=== PATIENT | female | born 1925 | race Caucasian/White ===

== ENCOUNTER → 2016-06-26 | Outpatient (CLI) | payer OTHER, MEDICAID ==
[2015-08-01 15:19] VITALS: BP 99/54
--- NOTE | 2016-06-26 14:19 | MG ---
Examination: Unilateral right diagnostic mammogram. Clinical history: Personal history of left breast carcinoma with left mastectomy. Technique: Multiple digital images of the right breast were obtained. Computer aided detection abe sis was performed in the used in the interpretation. Comparison: 05/12/2015. Findings: The right breast is composed of scattered fibroglandular densities. Benign-appearing calcifications are noted in the right breast. No suspicious mass, area of architectural distortion or suspicious cluster of microcalcifications is noted. Impression: 1. No mammographic evidence of malignancy. BI-RADS category 2-benign findings. Recommend routine annual screening mammogram. Diagnostic CAD was utilized and reviewed. * 0 (ZERO) - ASSESSMENT INCOMPLETE; ADDITIONAL IMAGING IS NEEDED. * 0C - ASSESSMENT INCOMPLETE, NEEDS ADDITIONAL IMAGING EVALUATION AND/OR PRIOR MAMMOGRAMS FOR COMPAR YELENA. * 1/1 (ONE) - NEGATIVE. * 2/II (TWO) - BENIGN FINDINGS. * 3/III (THREE) - PROBABLY BENIGN FINDING; SHORT INTERVAL FOLLOW-UP SUGGESTED. * 4/IV (FOUR) - SUSPICIOUS ABNORMALITY; BIOPSY SHOULD BE CONSIDERED. * 5/V - HIGHLY SUSPICIOUS OF MALIGNANCY; BIOPSY SHOULD BE PERFORMED. * 6/IV - KNOWN BIOPSY PROVEN MALIGNANCY-APPROPRIATE ACTION SHOULD BE TAKEN. A NEGATIVE X-RAY REPORT SHOULD NOT DELAY BIOPSY IF A DOMINANT OR CLINICALLY SUSPICIOUS MASS IS PRESENT; 4 TO 8 PERCENT OF CANCERS ARE NOT IDENTIFIED BY X-RAY. A NEGATIVE REPORT MAY REINFORCE THE CLINICAL IMPRESSION. ADENOSIS AND DENSE BREASTS MAY OBSCURE AN UNDERLYING NEOPLASM. Reported By:
--- NOTE | 2016-06-27 08:07 | NM ---
HISTORY: Open wound right heel Study: nuclear medicine 3 phase bone scan, feet Comparison: Plain films May 05, 2013 Technique: Patient received intravenous injection of 25.6 millicuries technetium 99 MDP. Flow, blood pool, and delayed imaging of the were obtained. Total body delayed images were also obtained. Findings: Abnormally increased blood flow is present in the area of the right foot and ankle. There is abnorma l increased blood pool concentration in the same area. However there is no abnormal tracer concentra tion in the right calcaneus on the delayed images. This suggest soft tissue inflammation but does no t suggest osteomyelitis. Focal increase tracer concentration is present in the right mid foot and bilateral knee joints likel y degenerative in origin. Scattered areas of increase tracer concentration are present in the mid th oracic and lumbar spine also likely degenerative in origin IMPRESSION: No definite evidence for osteomyelitis in the right calcaneus. Findings suggests soft tissue inflamm ation Foci of abnormal tracer concentration in the mid thoracic spine, lumbar spine, bilateral knees, and right mid football likely degenerative in origin Reported By:
== END ==
LOC: RAD 11:41
PROVIDERS: ATTEND Emergency Medicine Undersea and Hyperbaric Medicine
DX: S91.301A Unspecified open wound, right foot, initial encounter (principal); Z85.3 Personal history of malignant neoplasm of breast; Z90.12 Acquired absence of left breast and nipple
CPT/HCPCS: 77065; 78315; A4222

== ENCOUNTER → 2016-07-23 | Outpatient (CLI) | payer OTHER, MEDICAID ==
[2015-08-01 15:19] VITALS: BP 99/54
[2016-07-23 18:39] LABS: BASOPHILS # (AUTO) 0.1 X10^3/uL (0.0-0.1); BASOPHILS % (AUTO) 1.3 % (0.2-1.0); EOSINOPHILS # (AUTO) 0.5 x10^3/uL (0.0-0.2); EOSINOPHILS % (AUTO) 6.5 % (0.9-2.9); HEMATOCRIT 37.5 % (36.0-47.0); HEMOGLOBIN 12.8 g/dL (12.0-16.0); LYMPHOCYTES # (AUTO) 1.7 X10^3/uL (1.3-2.9); LYMPHOCYTES % (AUTO) 21.7 % (21.0-51.0); MEAN CORPUSCULAR HEMOGLOBIN 30.9 pg (27.0-34.0); MEAN CORPUSCULAR VOLUME 90.8 fL (80.0-100.0); MEAN PLATELET VOLUME 7.4 fL (7.4-11.0); MONOCYTES # (AUTO) 1.1 x10^3/uL (0.3-0.8); MONOCYTES % (AUTO) 14.1 % (0.0-13.0); NEUTROPHILS # (AUTO) 4.4 x10^3/uL (2.2-4.8); NEUTROPHILS % (AUTO) 56.4 % (42.0-75.0); PLATELET COUNT 230 X10^3/uL (150.0-450.0); RED BLOOD COUNT 4.13 X10^6/uL (3.5-5.4); RED CELL DISTRIBUTION WIDTH 14.6 % (11.6-16.5); WHITE BLOOD COUNT 7.9 X10^3/uL (3.6-10.0)
[2016-07-23 18:50] LABS: ALANINE AMINOTRANSFERASE 25 Units/L (12-78); ALBUMIN 3.4 g/dL (3.4-5.0); ALKALINE PHOSPHATASE 55 Units/L (46-116); ASPARTATE AMINO TRANSFERASE 20 Units/L (15-37); BLOOD UREA NITROGEN 15 mg/dL (7-18); CALCIUM 9.4 mg/dL (8.5-10.1); CARBON DIOXIDE 28.6 mmol/L (21-32); CHLORIDE 98 mmol/L (98-107); CREATININE 0.95 mg/dL (0.55-1.02); GLUCOSE 97 mg/dL (65-99); LACTATE DEHYDROGENASE 172 Units/L (81-234); SODIUM 132 mmol/L (136-145); TOTAL PROTEIN 7.5 g/dL (6.4-8.2); eGFR BLACK RACES > 60 (>60); eGFR NON BLACK RACES 59 (>60)
== END ==
LOC: LAB 18:04
PROVIDERS: ATTEND Internal Medicine
DX: C94.80 Other specified leukemias not having achieved remission (principal)
CPT/HCPCS: 36415; 80053; 83615; 85025

== ENCOUNTER 2016-08-30 22:17 | Inpatient (IN) | payer OTHER, MEDICAID ==
[2016-08-30] MEDS ORDERED: ZOFRAN INJ 4 MG VIAL IVP ONE (22:53)
[2016-08-30] MEDS ORDERED: MORPHINE SULFATE INJ 2 MG IVP ONE (22:53)
--- NOTE | 2016-08-30 22:53 | DR.GENAD ---
HPI - PCP Primary Care Physician: nadira - HPI Comment HPI Comment: PATIENT WAS HAVING PRECORDIAL CHEST PAIN RADIATING TO LT ARM AND NECK. TOOK 2 TRAMADOL WITHOUT RELIEF. CAME TO ED. SHE IS IN CAST AND IS WALKING WITH HER WALKER. SHE BELIEVE SHE MAY HAVE STRAIN HER SHOULDER ON THE LEFT. HAVE SEVERAL RISK FACTORS FOR [place]. - Complaint/Symptoms Chief Complaint Doctors Comments: CHEST PAIN. Chief Complaint:: pt c/o lt arm and shoulder pain since having too wear a boot on her rt foot pt states" it causes me too have too put more weight on my arms and shoulders" pt denies chest pain Self Treatment fo Chief Complaint: tramadol - Nurses notes reviewed Nurses Notes Review: Yes - Source History Provided: Patient - Mode of Arrival Mode of Arrival: EMS - Timing Onset of Chief Complaint: 08/30/16 Came on: Suddenly - Duration Duration: Constant Duration: Hours - Severity Severity: Moderate PMH - PMH Past Medical History: Yes Past Medical History: Arthritis, Depression, Dyslipidemia, Hypertension, Hypothyroidism Past Surgical History: Yes Surgical History: Hysterectomy, Mastectomy Past Surgical History Comment: breast ca lt breast removed - Family History History of Family Medical Conditions: Yes Family Medical History: Hypertension - Social History Does patient currently use any type of tobacco product: No Have you used tobacco products in the last 12 months: No Type of Tobacco Use: None Does any household member use tobacco: No Alcohol Use: None Do you use any recreational Drugs:: No Lives With: Family Lives Where: Home - infectious screening In the last 2 months have you had wt loss of >10#?: NO Have you had fever, night sweats or hemotysis?: No Have you traveled outside the country in the last 6 months?: No Isolation: Standard ROS - Review of Systems Constitutional: Weakness, Fatigue. negative: Chills, Fever Eyes: No Symptoms Reported. negative: Eye Pain, Discharge ENTM: negative: Ear Pain, Nose Discharge, Nose Congestion, Throat Pain Respiratoy: Non-Productive Cough, Short of Breath. negative: Productive Cough, Wheezing, Hemoptysis Cardiovascular: Chest Pain, Edema Gastrointestinal/Abdominal: No Symptoms Reported Genitourinary: No Symptoms Reported Neurological: Weakness, Problems Walking Musculoskeletal: Muscle Pain, Other (CAST IN RIGHT LEG AND FOOT.) Integumentary: negative: Rash, Juandice Hematologic/Lymphatic: Easy Bruising Endocrine: No Symptoms Reported All Other Systems: Reviewed and Negative PE - Vital Signs Vitals: Temperature 97.3 F Pulse Rate 65 Respiratory Rate 14 Blood Pressure [Right Thigh] 134/77 Blood Pressure [Right Arm] 124/59 Blood Pressure 136/84 O2 Sat by Pulse Oximetry 93 - General Limitations: No Limitations General Appearance: Alert - Head Head Exam: Normal Inspection - Eyes Eye exam: Normal Appearance - ENT ENT Exam: Normal External Ear Exam External Ear Exam: Normal External Inspection TM/Canal Exam: Bilateral Normal Mouth Exam: Normal Inspection Throat Exam: Normal Inspection - Neck Neck Exam: Trachea Midline - Chest Chest Inspection: Symmetric Chest Wall Rise - Respiratory Respiratory Exam: Chest Wall Tenderness (LEFT), Respiratory Distress Respiratory Exam: Bilateral Wheezing, Bilateral Rhonchi, Upper Rhonchi, Lower Wheezing, Lower Rhonchi - Cardiovascular Cardiovascular Exam: Regular Rate, Normal Rhythm, Normal Heart Sounds - Abdominal Exam Abdominal Exam: Normal Bowel Sounds, Soft. negative: Tenderness - Extremities Extremities Exam: Tenderness (LT SHOULDER), Joint Swelling (LT SHOULDER), Other (CAST IN RIGHT LEG.) - Back Back Exam: Paraspinal Tenderness - Neurologic Neurological Exam: Alert - Psychiatric Psychiatric Exam: Anxious - Skin Skin Exam: Erythema (LOWER EXTREMITIES.) MDM - Additional Information Additional Information Obtained From: Family - Differential Diagnosis Differential Diagnosis: CHEST PAIN, [place], CAD, CHEST WALL PAIN, PUD, GASTRITIS, UTI Course - Treatment Treatment: SEE ORDERS. PATIENT STILL IN PAIN . MORPHIN DECREASE PAIN SLIGHTLY. - Consultation Consultation Comments: DISCUSS PATIENT WITH DR. ESPITIA. HE WILL ADMIT PATIENT. - Education/Counseling Education/Counseling: Patient, Family, Education Educated On: Diagnosis ROR - Labs Reviewed Laboratory Results Reviewed?: Yes Result Diagrams: 09/01/16 08:36 09/01/16 05:21 - Diagnosis Discharge Problem: Chest pain - Discharge Plan Disposition: ADMITTED INPATIENT Condition: Stable - Follow ups/Referrals - Instructions
[2016-08-30 23:12] LABS: BASOPHILS # (AUTO) 0.1 X10^3/uL (0.0-0.1); BASOPHILS % (AUTO) 1.1 % (0.2-1.0); EOSINOPHILS # (AUTO) 0.5 x10^3/uL (0.0-0.2); EOSINOPHILS % (AUTO) 5.6 % (0.9-2.9); HEMATOCRIT 34.5 % (36.0-47.0); HEMOGLOBIN 12.1 g/dL (12.0-16.0); LYMPHOCYTES # (AUTO) 1.8 X10^3/uL (1.3-2.9); MEAN CORPUSCULAR HEMOGLOBIN 32.1 pg (27.0-34.0); MEAN CORPUSCULAR HGB CONC 35.1 g/dL (33.0-35.0); MEAN CORPUSCULAR VOLUME 91.3 fL (80.0-100.0); MEAN PLATELET VOLUME 6.9 fL (7.4-11.0); MONOCYTES # (AUTO) 1.3 x10^3/uL (0.3-0.8); MONOCYTES % (AUTO) 14.1 % (0.0-13.0); NEUTROPHILS # (AUTO) 5.7 x10^3/uL (2.2-4.8); NEUTROPHILS % (AUTO) 60.2 % (42.0-75.0); PLATELET COUNT 231 X10^3/uL (150.0-450.0); RED BLOOD COUNT 3.78 X10^6/uL (3.5-5.4); RED CELL DISTRIBUTION WIDTH 13.7 % (11.6-16.5); WHITE BLOOD COUNT 9.4 X10^3/uL (3.6-10.0)
[2016-08-30] MEDS ORDERED: ZOFRAN INJ 4 MG VIAL ONE (23:23)
[2016-08-30] MEDS ORDERED: MORPHINE SULFATE INJ 2 MG ONE (23:23)
[2016-08-30 23:30] LABS: BLOOD UREA NITROGEN 19 mg/dL (7-18); CALCIUM 8.9 mg/dL (8.5-10.1); CARBON DIOXIDE 28.3 mmol/L (21-32); CHLORIDE 102 mmol/L (98-107); COR NA(FOR HYPERGLY) 136 mmol/L (136-145); CREATININE 1.05 mg/dL (0.55-1.02); GLUCOSE 125 mg/dL (65-99); SODIUM 135 mmol/L (136-145); TROPONIN I < 0.02 ng/mL (0-1.5); eGFR BLACK RACES > 60 (>60); eGFR NON BLACK RACES 52 (>60)
--- NOTE | 2016-08-30 23:31 | RAD ---
AP Chest Indication: Chest pain Comparison: 05/17/2011 Findings: The right chest wall MediPort is unchanged in position with its tip terminating within the upper SVC . The trachea is midline. The cardiac silhouette is enlarged, unchanged. There is increased pulmonary vascular congestion without evidence of acute airspace disease or CHF. The lungs are clear without focal infiltrate or effusion. The bony thorax is unremarkable. Several surgical clips are noted wi thin the left chest wall/breast soft tissues. IMPRESSION: 1. Cardiomegaly with pulmonary vascular congestion without acute airspace disease or CHF. Overall no change from prior exam. Reported By:
[2016-08-30 23:34] LABS: ALANINE AMINOTRANSFERASE 12 Units/L (12-78); ALBUMIN 3.2 g/dL (3.4-5.0); ALKALINE PHOSPHATASE 47 Units/L (46-116); ASPARTATE AMINO TRANSFERASE 18 Units/L (15-37); CKMB % 0.4 % (<4); COR CA(FOR HYPOALB) 9.5 mg/dL (8.5-10.1); CREATINE KINASE 278 Units/L (26-192); CREATINE KINASE MB < 1.0 ng/mL (0-4.0); TOTAL PROTEIN 6.9 g/dL (6.4-8.2)
[2016-08-31] MEDS ORDERED: XYLOCAINE 1 % (PLAIN) ONE (00:59)
[2016-08-31] MEDS ORDERED: MORPHINE SULFATE INJ 2 MG IVP PRN (01:03)
[2016-08-31] MEDS ORDERED: ZOFRAN INJ 4 MG VIAL IVP PRN (01:04)
[2016-08-31 05:33] LABS: BASOPHILS # (AUTO) 0.1 X10^3/uL (0.0-0.1); BASOPHILS % (AUTO) 0.8 % (0.2-1.0); CALCIUM 8.7 mg/dL (8.5-10.1); CARBON DIOXIDE 25.6 mmol/L (21-32); COR CA(FOR HYPOALB) 9.5 mg/dL (8.5-10.1); CREATININE 1.13 mg/dL (0.55-1.02); EOSINOPHILS # (AUTO) 0.3 x10^3/uL (0.0-0.2); EOSINOPHILS % (AUTO) 2.2 % (0.9-2.9); HEMATOCRIT 30.4 % (36.0-47.0); HEMOGLOBIN 10.5 g/dL (12.0-16.0); LYMPHOCYTES # (AUTO) 1.6 X10^3/uL (1.3-2.9); LYMPHOCYTES % (AUTO) 11.4 % (21.0-51.0); MEAN CORPUSCULAR HGB CONC 34.7 g/dL (33.0-35.0); MEAN CORPUSCULAR VOLUME 92.3 fL (80.0-100.0); MEAN PLATELET VOLUME 7.4 fL (7.4-11.0); MONOCYTES # (AUTO) 1.6 x10^3/uL (0.3-0.8); MONOCYTES % (AUTO) 11.3 % (0.0-13.0); NEUTROPHILS # (AUTO) 10.6 x10^3/uL (2.2-4.8); NEUTROPHILS % (AUTO) 74.3 % (42.0-75.0); PLATELET COUNT 275 X10^3/uL (150.0-450.0); RED BLOOD COUNT 3.29 X10^6/uL (3.5-5.4); RED CELL DISTRIBUTION WIDTH 14.1 % (11.6-16.5); TOTAL PROTEIN 6.4 g/dL (6.4-8.2); WHITE BLOOD COUNT 14.3 X10^3/uL (3.6-10.0)
[2016-08-31 06:01] LABS: CKMB % 0.4 % (<4); CREATINE KINASE 251 Units/L (26-192); CREATINE KINASE MB < 1.0 ng/mL (0-4.0); TROPONIN I < 0.02 ng/mL (0-1.5)
[2016-08-31 08:25] LABS: APPEARANCE,URINE HAZY (CLEAR); BILIRUBIN,URINE 2+ (NEGATIVE); BLOOD/HEMOGLOBIN,URINE 1+ (NEGATIVE); COLOR,URINE YELLOW (YELLOW); GLUCOSE, URINE NEGATIVE (NEGATIVE); KETONES,URINE NEGATIVE (NEGATIVE); LEUKOCYTE ESTERASE ,URINE 2+ (NEGATIVE); NITRITES,URINE NEGATIVE (NEGATIVE); PROTEIN,URINE 1+ (NEGATIVE); RBC,URINE 0-2 /HPF (NEGATIVE); UROBILINOGEN,URINE NORMAL (NORMAL)
[2016-08-31] MEDS: MORPHINE SULFATE INJ 10 MG IVP PRN (08:25)
[2016-08-31] MEDS: NS IV SCH ×2 (08:25→20:41)
[2016-08-31] MEDS: AQUA MEPHYTON ADULT IV SCH ×2 (08:25→20:41)
[2016-08-31 08:26] LABS: BACTERIA,URINE TRACE /HPF (NEGATIVE); SQUAMOUS EPITHELIAL CELL,UR RARE /HPF (NEGATIVE)
--- NOTE | 2016-08-31 08:37 | CT ---
HISTORY: Left chest wall swelling/pain. Patient has a history of breast cancer Study: Noncontrast CT scan of the chest Comparison: Chest x-ray done August 30, 2016 Technique: non contrasted CT images of the chest are reviewed in axial, coronal and sagittal planes. Dose reduction techniques utilized automatic exposure control. Findings: There is subcutaneous edema present involving the left upper chest wall and extending into the left axillary region. Multiple heterogeneous appearing mass is are present deep to the pectoral muscle an d displacing the pectoral muscle anteriorly are present. The largest of these measures about 5.4 x 1 0.6 x 11.8 centimeters. Other mass is are present measuring 4 to 6 centimeters in diameter. Findings have the appearance of adenopathy. Some central necrosis is present within the largest of the soft tissue mass . There are surgical clips present involving the left axilla region in the left breast a susannah. A simple fluid collection is not identified. Osseous structures are intact. No evidence of medi astinal or hilar adenopathy is seen. There is no evidence of thoracic aortic aneurysm. There are 3 s mall noncalcified nodules present involving the left lung. These range in size from 5 to 6 millimete rs. These are present in the left lower lobe. A 3 millimeter calcified nodule is present in the supe rior segment of the left lower lobe. The right lung is clear. Osseous structures are intact. The meet er and adrenal glands unremarkable. There is an IVC filter present. IMPRESSION: Bulky masses present in the left subpectoral region extending into the left axilla. Findings likely represent metastatic lymphadenopathy. Due to the superficial location of the masses, these could be biopsied under ultrasound guidance. Considerable subcutaneous edema in the left anterior upper chest region extending into the left axil la. 3 non calcified pulmonary nodules in the left lower lobe. These must be viewed with suspicion for me tastatic nodules, taken in the light of the additional findings. Reported By:
[2016-08-31] MEDS ORDERED: LOSARTAN POTASSIUM 100 MG PO SCH (09:45)
[2016-08-31] MEDS ORDERED: PATIENT'S HOME MEDICATION (Pregabalin [Lyrica] 50 MG) PO SCH (09:45)
[2016-08-31] MEDS ORDERED: PATIENT'S HOME MEDICATION (Multivit-Min/Fa/Lycopen/Lutein [Centrum Silver Tablet] 1 TAB) PO SCH (09:45)
[2016-08-31] MEDS ORDERED: LEVOTHYROXINE SODIUM 150 MCG PO SCH (09:45)
[2016-08-31] MEDS ORDERED: LOPRESSOR TAB 50 MG PO SCH (10:00)
[2016-08-31] MEDS: VITAMIN C PO SCH (10:17)
[2016-08-31] MEDS ORDERED: BUTT CREAM (COMPOUND) ONE (10:57)
[2016-08-31] MEDS ORDERED: STERILE WATER IRRIGATION IR ONE (10:59)
[2016-08-31 11:32] LABS: CKMB % 0.4 % (<4); CREATINE KINASE 238 Units/L (26-192); TROPONIN I < 0.02 ng/mL (0-1.5)
[2016-08-31] MEDS: LYRICA CAP 50 MG PO SCH ×2 (14:33→21:39)
[2016-08-31] MEDS ORDERED: NS 1000 ML 1,000 ML IV ONE (16:11)
[2016-08-31] MEDS ORDERED: CITALOPRAM HYDROBROMIDE 10 MG PO SCH (21:00)
[2016-08-31] MEDS: CELEXA PO SCH (21:39)
[2016-09-01] MEDS: MORPHINE SULFATE INJ 10 MG IVP PRN (02:34)
[2016-09-01] MEDS: LYRICA CAP 50 MG PO SCH ×3 (05:58→21:22)
[2016-09-01] MEDS: SYNTHROID 150 mcg TAB PO SCH (05:59)
[2016-09-01 06:09] LABS: BASOPHILS # (AUTO) 0.1 X10^3/uL (0.0-0.1); BASOPHILS % (AUTO) 0.2 % (0.2-1.0); MEAN PLATELET VOLUME 7.7 fL (7.4-11.0); PLATELET COUNT 263 X10^3/uL (150.0-450.0)
[2016-09-01 06:31] LABS: HEMATOCRIT 21.3 % (36.0-47.0); HEMOGLOBIN 7.4 g/dL (12.0-16.0); LYMPHOCYTES # (AUTO) 1.8 X10^3/uL (1.3-2.9); LYMPHOCYTES % (AUTO) 7.3 % (21.0-51.0); MEAN CORPUSCULAR HGB CONC 34.9 g/dL (33.0-35.0); MEAN CORPUSCULAR VOLUME 91.5 fL (80.0-100.0); MONOCYTES # (AUTO) 3.4 x10^3/uL (0.3-0.8); MONOCYTES % (AUTO) 13.8 % (0.0-13.0); NEUTROPHILS # (AUTO) 19.7 x10^3/uL (2.2-4.8); NEUTROPHILS % (AUTO) 78.7 % (42.0-75.0); RED BLOOD COUNT 2.33 X10^6/uL (3.5-5.4); RED CELL DISTRIBUTION WIDTH 13.9 % (11.6-16.5)
[2016-09-01 06:39] LABS: ALBUMIN 2.6 g/dL (3.4-5.0); CALCIUM 8.4 mg/dL (8.5-10.1); CARBON DIOXIDE 22.8 mmol/L (21-32); COR CA(FOR HYPOALB) 9.5 mg/dL (8.5-10.1)
[2016-09-01 07:17] LABS: BAND NEUTROPHILS % 5 % (0-10)
[2016-09-01 07:20] LABS: PLATELET MORPHOLOGY COMMENT NORMAL (NORMAL)
[2016-09-01] MEDS: VITAMIN C PO SCH (08:10)
[2016-09-01] MEDS ORDERED: NS 500 ML IV 500 ML IV ONE (08:19)
[2016-09-01] MEDS ORDERED: BETAMETHASONE EXT PRN (08:21)
[2016-09-01] MEDS ORDERED: CLOTRIMAZOLE EXT PRN (08:21)
[2016-09-01] MEDS ORDERED: GENTAMICIN TOPICAL CRM EXT PRN (08:21)
[2016-09-01] MEDS ORDERED: TRAMADOL HCL 50 MG PO PRN (08:21)
[2016-09-01] MEDS ORDERED: POTASSIUM CHLORIDE 10 MEQ PO SCH (09:00)
[2016-09-01] MEDS ORDERED: PATIENT'S HOME MEDICATION (Levocetirizine Dihydrochloride [Xyzal] 5 MG) PO SCH (09:00)
[2016-09-01] MEDS ORDERED: ZINC 100 MG PO SCH (09:00)
[2016-09-01] MEDS ORDERED: COZAAR PO SCH (09:00)
[2016-09-01] MEDS ORDERED: HONEY TD SCH (09:00)
[2016-09-01 09:24] LABS: HEMATOCRIT 19.9 % (36.0-47.0); HEMOGLOBIN 6.7 g/dL (12.0-16.0)
[2016-09-01] MEDS: SINEMET (PLAIN) 25/100 MG PO SCH ×3 (09:38→21:22)
[2016-09-01] MEDS: WELCHOL PO SCH ×2 (09:38→21:22)
[2016-09-01] MEDS: TYLENOL 325 MG TAB PO PRN ×3 (09:38→22:50)
[2016-09-01] MEDS ORDERED: LOTRISONE CREAM 15 G TOP PRN (09:49)
[2016-09-01] MEDS: MICRO K EXTEN CAP 10 MEQ PO SCH ×2 (10:20→21:22)
[2016-09-01] MEDS ORDERED: ULTRAM PO PRN (10:50)
[2016-09-01] MEDS: BENADRYL INJ 50 MG VIAL IVP PRN ×2 (12:00→22:51)
[2016-09-01 16:31] LABS: HEMOGLOBIN 8.1 g/dL (12.0-16.0)
[2016-09-01] MEDS: CELEXA PO SCH (21:21)
[2016-09-01] MEDS: ZyrTEC TAB 10 MG PO SCH (21:22)
[2016-09-01] MEDS ORDERED: NS 500 ML IV 0 ML IV ONE (22:45)
[2016-09-02 06:19] LABS: BASOPHILS % (AUTO) 0.2 % (0.2-1.0); EOSINOPHILS % (AUTO) 0.1 % (0.9-2.9); HEMATOCRIT 24.8 % (36.0-47.0); HEMOGLOBIN 8.6 g/dL (12.0-16.0); LYMPHOCYTES # (AUTO) 1.4 X10^3/uL (1.3-2.9); LYMPHOCYTES % (AUTO) 8.9 % (21.0-51.0); MEAN CORPUSCULAR HEMOGLOBIN 30.8 pg (27.0-34.0); MEAN CORPUSCULAR HGB CONC 34.7 g/dL (33.0-35.0); MEAN CORPUSCULAR VOLUME 88.8 fL (80.0-100.0); MONOCYTES # (AUTO) 2.1 x10^3/uL (0.3-0.8); MONOCYTES % (AUTO) 13.1 % (0.0-13.0); NEUTROPHILS # (AUTO) 12.2 x10^3/uL (2.2-4.8); NEUTROPHILS % (AUTO) 77.7 % (42.0-75.0); PLATELET COUNT 176 X10^3/uL (150.0-450.0); RED BLOOD COUNT 2.79 X10^6/uL (3.5-5.4); RED CELL DISTRIBUTION WIDTH 14.7 % (11.6-16.5); WHITE BLOOD COUNT 15.7 X10^3/uL (3.6-10.0)
[2016-09-02 06:22] LABS: ALBUMIN 2.2 g/dL (3.4-5.0); CALCIUM 8.2 mg/dL (8.5-10.1); CARBON DIOXIDE 24.4 mmol/L (21-32); COR CA(FOR HYPOALB) 9.6 mg/dL (8.5-10.1); CREATININE 1.15 mg/dL (0.55-1.02); TOTAL PROTEIN 5.7 g/dL (6.4-8.2)
[2016-09-02] MEDS: SINEMET (PLAIN) 25/100 MG PO SCH ×3 (06:29→21:35)
[2016-09-02] MEDS: COLACE CAP 100 MG PO PRN (06:29)
[2016-09-02] MEDS: SYNTHROID 150 mcg TAB PO SCH (06:30)
[2016-09-02] MEDS: LYRICA CAP 50 MG PO SCH ×3 (06:30→21:36)
[2016-09-02] MEDS: MILK OF MAGNESIA PO PRN (06:30)
[2016-09-02] MEDS: VITAMIN C PO SCH (08:39)
[2016-09-02] MEDS: MICRO K EXTEN CAP 10 MEQ PO SCH ×2 (08:39→21:35)
[2016-09-02] MEDS: WELCHOL PO SCH ×2 (08:40→21:35)
[2016-09-02] MEDS: PATIENT'S HOME MEDICATION PO SCH ×2 (08:48→08:49)
[2016-09-02 09:06] LABS: HEMATOCRIT 26.2 % (36.0-47.0); HEMOGLOBIN 9.1 g/dL (12.0-16.0)
[2016-09-02 09:48] VITALS: BMI 41.8
[2016-09-02] MEDS ORDERED: NS 250 ML IV 250 ML IV ONE (10:30)
[2016-09-02] MEDS: LEVAQUIN PREMIX IV 750 MG 750 MG/150 ML BAG IV SCH (10:35)
[2016-09-02] MEDS: VANCOMYCIN 1 GM PREMIX (ADDVANTAGE) 250 ML IV SCH ×2 (12:19→21:34)
[2016-09-02] MEDS: TYLENOL 325 MG TAB PO PRN (13:48)
--- NOTE | 2016-09-02 15:12 | PCM.PROG ---
Progress Note - Progress Note for Day of Date: 09/01/16 - Subjective Subjective: Patient Is a 89 yo female admitted with chest pain. Patient is asleep this am and resting well. She has a large hematoma to left side of chest with bruising extending to her right breast. Vital Signs this am are 100.1, 105 , 18, 93, 155/55. Labs are within normal limits with the exception of WBC 25.0, RBC 2.33, Hgb 7.5, Hct 21.3, Neut% 78.7, Lymph% 7.3, [place]% 13.8, Eos% 0.0, Neut # 19.7, [place]# 3.4, Sodium 134, BUN 36, Creatinine 2.00, Est GFR 25, Glucose 179 , Calcium 8.4, Alkaline Phosphate 33, Total Protein 6.0, Albumin 2.6, Albumin/ globuin Ratio 0.8. Pateint has a chest ct performed yesterday that shows bulky masses present in the left subpectoral region extending into the left axilla region. Findings likely represent metastatic lymphadenopathy. Due to superficial location of the masses that could be biopsied under ultrasound guidance, considerable subcutaneous edema in the left anterior upper chest region extending into the left axilla, 3 non calcified pulmonary nodules in the left lower lobe. We are going to transfuse patient with 2 units of PRBC, H& H q8hr and transfuse if hemoglobin less than 8. We will continue her home medications with the exception of Coumadin and blood pressure medications. We will follow up with patient in the am and repeat labs. - Past Medical Family Social History Past Med/Fam/Surg Hx: No changes since H&P Allergies: Allergies clindamycin Allergy (Intermediate, Verified 08/31/16 13:09) RASH Sulfa (Sulfonamide Antibiotics) Allergy (Verified 08/31/16 13:11) - Review of Systems ROS: No change since H&P - Vital Signs and I&O's Vital Signs: 100.1, 105, 18, 93, 155/55 Intake and Output: Intake & Output 08/31/16 09/01/16 09/02/16 09/03/16 11:59 11:59 11:59 11:59 Intake Total 045 328 3764 Output Total 0 425 2150 Balance 220 225 -220 - Physical Exam Oriented: Normal Eyes: Normal Ear: Normal Nose: Normal Throat: Normal Respiratory: Normal Cardiovascular: Normal : Normal Auscultation: Bowel Sounds: Normal Palpation: Normal Tenderness: Normal Skin: Other (Hematoma to left chest, bruising to left chest extending to right chest) Speech Pattern: Clear, Appropriate - Laboratory and Diagnostics Result Diagrams: 09/02/16 08:28 09/02/16 04:12 Labs: 08/31/16 07:49 Urine,Clean Catch Urine Culture - Final Enterococcus Faecalis Laboratory WBC 15.7 X10^3/uL (3.6-10.0) H 09/02/16 04:12 RBC 2.79 X10^6/uL (3.5-5.4) L 09/02/16 04:12 Hgb 9.1 g/dL (12.0-16.0) L 09/02/16 08:28 Hct 26.2 % (36.0-47.0) L 09/02/16 08:28 MCV 88.8 fL (80.0-100.0) 09/02/16 04:12 MCH 30.8 pg (27.0-34.0) 09/02/16 04:12 MCHC 34.7 g/dL (33.0-35.0) 09/02/16 04:12 RDW 14.7 % (11.6-16.5) 09/02/16 04:12 Plt Count 176 X10^3/uL (150.0-450.0) 09/02/16 04:12 Plt Count Comment Adequate (ADEQUATE) 09/01/16 05:21 MPV 8.0 fL (7.4-11.0) 09/02/16 04:12 Neut % 77.7 % (42.0-75.0) H 09/02/16 04:12 Lymph % 8.9 % (21.0-51.0) L 09/02/16 04:12 [place] % 13.1 % (0.0-13.0) H 09/02/16 04:12 Eos % 0.1 % (0.9-2.9) L 09/02/16 04:12 Baso % 0.2 % (0.2-1.0) 09/02/16 04:12 Neut # 12.2 x10^3/uL (2.2-4.8) H 09/02/16 04:12 Lymph # 1.4 X10^3/uL (1.3-2.9) 09/02/16 04:12 [place] # 2.1 x10^3/uL (0.3-0.8) H 09/02/16 04:12 Eos # 0.0 x10^3/uL (0.0-0.2) 09/02/16 04:12 Baso # 0.0 X10^3/uL (0.0-0.1) 09/02/16 04:12 Absolute Nucleated RBC 0.1 /100WBC 09/02/16 04:12 Total Counted 100 09/01/16 05:21 Neutrophils % (Manual) 79 % (39-76) H 09/01/16 05:21 Band Neutrophils % 5 % (0-10) 09/01/16 05:21 Lymphocytes % (Manual) 6 % (13-43) L 09/01/16 05:21 Monocytes % (Manual) 8 % (4-9) 09/01/16 05:21 Eosinophils % (Manual) 2 % (0-6) 09/01/16 05:21 Plt Morphology Comment Normal (NORMAL) 09/01/16 05:21 RBC Morphology Normal (NORMAL) 09/01/16 05:21 INR Target Range - 09/02/16 04:12 INR 1.35 (0.8-1.3) H 09/02/16 04:12 Sodium 134 mmol/L (136-145) L 09/02/16 04:12 Corrected Sodium 136 mmol/L (136-145) 09/02/16 04:12 Potassium 4.4 mmol/L (3.5-5.1) 09/02/16 04:12 Chloride 102 mmol/L (98-107) 09/02/16 04:12 Carbon Dioxide 24.4 mmol/L (21-32) 09/02/16 04:12 BUN 26 mg/dL (7-18) H 09/02/16 04:12 Creatinine 1.15 mg/dL (0.55-1.02) H 09/02/16 04:12 Est GFR (MDRD) Af Amer 57 (>60) L 09/02/16 04:12 Est GFR (MDRD) Non-Af 47 (>60) L 09/02/16 04:12 Glucose 168 mg/dL (65-99) H 09/02/16 04:12 Calcium 8.2 mg/dL (8.5-10.1) L 09/02/16 04:12 Corrected Calcium 9.6 mg/dL (8.5-10.1) 09/02/16 04:12 Total Bilirubin 0.70 mg/dL (0.2-1.0) 09/02/16 04:12 AST 16 Units/L (15-37) 09/02/16 04:12 ALT 10 Units/L (12-78) L 09/02/16 04:12 Alkaline Phosphatase 37 Units/L (46-116) L 09/02/16 04:12 Creatine Kinase 238 Units/L (26-192) H 08/31/16 11:05 CK-MB (CK-2) 1.0 ng/mL (0-4.0) 08/31/16 11:05 CK/CKMB % Calc 0.4 % (<4) 08/31/16 11:05 Troponin I < 0.02 ng/mL (0-1.5) 08/31/16 11:05 Total Protein 5.7 g/dL (6.4-8.2) L 09/02/16 04:12 Albumin 2.2 g/dL (3.4-5.0) L 09/02/16 04:12 Globulin 3.5 g/dL (2.5-4.5) 09/02/16 04:12 Albumin/Globulin Ratio 0.6 Ratio (1.1-2.1) L 09/02/16 04:12 Triglycerides 97 mg/dL (0-150) 08/31/16 04:50 Cholesterol 113 mg/dL (0-200) 08/31/16 04:50 LDL Cholesterol, Calc 56 mg/dL (0-100) 08/31/16 04:50 HDL Cholesterol 38 mg/dL (40-60) L 08/31/16 04:50 Cholesterol/HDL Ratio 3.0 (0.0-5.0) 08/31/16 04:50 Specimen Type Catherized urine 08/31/16 07:49 Urine Color Yellow (YELLOW) 08/31/16 07:49 Urine Appearance Hazy (CLEAR) 08/31/16 07:49 Urine pH 5.0 (5.0 - 8.0) 08/31/16 07:49 Ur Specific [place] 1.015 (1.000-1.030) 08/31/16 07:49 Urine Protein 1+ (NEGATIVE) 08/31/16 07:49 Urine Glucose (UA) Negative (NEGATIVE) 08/31/16 07:49 Urine Ketones Negative (NEGATIVE) 08/31/16 07:49 Urine Occult Blood 1+ (NEGATIVE) 08/31/16 07:49 Urine Nitrite Negative (NEGATIVE) 08/31/16 07:49 Urine Bilirubin 2+ (NEGATIVE) 08/31/16 07:49 Urine Urobilinogen Normal (NORMAL) 08/31/16 07:49 Ur Leukocyte Esterase 2+ (NEGATIVE) 08/31/16 07:49 Urine RBC 0-2 /HPF (NEGATIVE) 08/31/16 07:49 Urine WBC 11-20 /HPF (NEGATIVE) 08/31/16 07:49 Ur Squamous Epith Cells Rare /HPF (NEGATIVE) 08/31/16 07:49 Urine Bacteria Trace /HPF (NEGATIVE) 08/31/16 07:49 Ur Culture Indicated? Yes/culture set up 08/31/16 07:49 Blood Type AB POSITIVE 08/31/16 08:12 Antibody Screen Negative 08/31/16 08:12 Crossmatch See Detail 08/31/16 08:12
[2016-09-02 16:22] LABS: HEMATOCRIT 23.1 % (36.0-47.0); HEMOGLOBIN 8.2 g/dL (12.0-16.0)
[2016-09-02] MEDS: ZyrTEC TAB 10 MG PO SCH (21:35)
[2016-09-02] MEDS: CELEXA PO SCH (21:36)
[2016-09-03 00:55] LABS: HEMATOCRIT 22.7 % (36.0-47.0); HEMOGLOBIN 7.9 g/dL (12.0-16.0)
[2016-09-03] MEDS ORDERED: NS 500 ML IV 500 ML IV ONE (01:27)
[2016-09-03] MEDS: BENADRYL INJ 50 MG VIAL IVP PRN (02:15)
[2016-09-03] MEDS: TYLENOL 325 MG TAB PO PRN (02:16)
[2016-09-03] MEDS ORDERED: NS 250 ML IV 250 ML IV ONE (04:46)
[2016-09-03] MEDS: LYRICA CAP 50 MG PO SCH ×3 (05:47→21:58)
[2016-09-03] MEDS: SINEMET (PLAIN) 25/100 MG PO SCH ×3 (05:47→21:57)
[2016-09-03] MEDS: SYNTHROID 150 mcg TAB PO SCH (06:20)
[2016-09-03] MEDS: LEVAQUIN PREMIX IV 750 MG 750 MG/150 ML BAG IV SCH (09:44)
[2016-09-03] MEDS: WELCHOL PO SCH ×2 (09:44→21:57)
[2016-09-03] MEDS: COLACE CAP 100 MG PO PRN (09:44)
[2016-09-03] MEDS: VITAMIN C PO SCH (09:44)
[2016-09-03] MEDS: MICRO K EXTEN CAP 10 MEQ PO SCH ×2 (09:45→21:57)
[2016-09-03] MEDS: PATIENT'S HOME MEDICATION PO SCH ×2 (09:57→10:07)
[2016-09-03 10:40] LABS: ALANINE AMINOTRANSFERASE 13 Units/L (12-78); ALBUMIN 2.3 g/dL (3.4-5.0); ALKALINE PHOSPHATASE 41 Units/L (46-116); ASPARTATE AMINO TRANSFERASE 25 Units/L (15-37); BLOOD UREA NITROGEN 24 mg/dL (7-18); CALCIUM 8.4 mg/dL (8.5-10.1); CARBON DIOXIDE 24.7 mmol/L (21-32); CHLORIDE 104 mmol/L (98-107); COR CA(FOR HYPOALB) 9.8 mg/dL (8.5-10.1); COR NA(FOR HYPERGLY) 135 mmol/L (136-145); GLUCOSE 145 mg/dL (65-99); SODIUM 134 mmol/L (136-145); eGFR BLACK RACES > 60 (>60); eGFR NON BLACK RACES 55 (>60)
[2016-09-03 10:42] LABS: BASOPHILS % (AUTO) 0.3 % (0.2-1.0); EOSINOPHILS # (AUTO) 0.3 x10^3/uL (0.0-0.2); EOSINOPHILS % (AUTO) 2.6 % (0.9-2.9); HEMATOCRIT 30.2 % (36.0-47.0); HEMOGLOBIN 10.6 g/dL (12.0-16.0); LYMPHOCYTES # (AUTO) 1.3 X10^3/uL (1.3-2.9); LYMPHOCYTES % (AUTO) 12.7 % (21.0-51.0); MEAN CORPUSCULAR HEMOGLOBIN 30.9 pg (27.0-34.0); MEAN CORPUSCULAR HGB CONC 35.1 g/dL (33.0-35.0); MEAN PLATELET VOLUME 7.8 fL (7.4-11.0); MONOCYTES # (AUTO) 1.1 x10^3/uL (0.3-0.8); MONOCYTES % (AUTO) 11.1 % (0.0-13.0); NEUTROPHILS # (AUTO) 7.5 x10^3/uL (2.2-4.8); NEUTROPHILS % (AUTO) 73.3 % (42.0-75.0); PLATELET COUNT 184 X10^3/uL (150.0-450.0); RED BLOOD COUNT 3.43 X10^6/uL (3.5-5.4); RED CELL DISTRIBUTION WIDTH 14.9 % (11.6-16.5); WHITE BLOOD COUNT 10.2 X10^3/uL (3.6-10.0)
[2016-09-03] MEDS: VANCOMYCIN 1 GM PREMIX (ADDVANTAGE) 250 ML IV SCH ×2 (11:11→21:58)
[2016-09-03] MEDS: DAKINS SOLUTION FULL STRENGTH TOP SCH (11:14)
[2016-09-03] MEDS: NYSTATIN POWDER TOP SCH ×2 (11:14→21:58)
--- NOTE | 2016-09-03 12:18 | PCM.PROG ---
Progress Note - Progress Note for Day of Date: 09/02/16 - Subjective Subjective: Patient Is a 89 yo female admitted with chest pain. Patient is awake this am and she states she is feeling better. She has a large hematoma to left side of chest with bruising extending to her right breast. Vital Signs this am are 98.2, 113, 20, 95%, 156/67. Labs are within normal limits with the exception of WBC 15.7, RBC 2.79, Hgb 8.6, Hct 24.8, Neut% 77.7, Lymph% 8.9, [place] % 13.1, Eos% 0.1, Neut# 12.2, [place]# 2.1, INR 1.35, Sodium 134, BUN 26, Creatinine 1.15, Est GFR 47, Glucose 168, Calcium 8.2, ALT 10, Alkaline Phosphate 37, Total Protein 5.7, Albumin 2.2, Albumin/globuin Ratio 0.6. Patient received 2units of PRBC yesterday and her hemoglobin is up to 8.6 this am. Patient urine culture that showed preliminary gram positive cocci we are going to start her on vancomycin IV and Levaquin. We will follow up in the am with repeat labs. - Past Medical Family Social History Past Med/Fam/Surg Hx: No changes since H&P Allergies: Allergies clindamycin Allergy (Intermediate, Verified 08/31/16 13:09) RASH Sulfa (Sulfonamide Antibiotics) Allergy (Verified 08/31/16 13:11) - Review of Systems ROS: No change since H&P - Vital Signs and I&O's Vital Signs: 98.2, 113, 20, 95%, 156/67 Intake and Output: Intake & Output 09/01/16 09/02/16 09/03/16 09/04/16 11:59 11:59 11:59 11:59 Intake Total 650 1930 1700 Output Total 425 2150 1625 Balance 225 -220 75 - Physical Exam Oriented: Normal Eyes: Normal Ear: Normal Nose: Normal Throat: Normal Respiratory: Normal Cardiovascular: Normal : Normal Auscultation: Bowel Sounds: Normal Palpation: Normal Tenderness: Normal Skin: Other (Hematoma to left chest, bruising to left chest extending to right chest, moisture under breast) Speech Pattern: Clear, Appropriate - Laboratory and Diagnostics Result Diagrams: 09/03/16 10:05 09/03/16 10:05 Labs: Labs are within normal limits with the exception of WBC 15.7, RBC 2.79, Hgb 8.6 , Hct 24.8, Neut% 77.7, Lymph% 8.9, [place]% 13.1, Eos% 0.1, Neut# 12.2, [place]# 2.1 , INR 1.35, Sodium 134, BUN 26, Creatinine 1.15, Est GFR 47, Glucose 168, Calcium 8.2, ALT 10, Alkaline Phosphate 37, Total Protein 5.7, Albumin 2.2, Albumin/globuin Ratio 0.6 - Plan (1) Anemia Status: Acute Qualifiers: Anemia type: A Iron deficiency anemia type: I Vitamin B12 deficiency anemia type: V Folate deficiency anemia type: F Bone marrow failure anemia type: B Hemolytic anemia type: H Other causes of anemia: O Chronic kidney disease stage: C Plan: H&H q8hr transfuse if less than 8.0 (2) UTI (urinary tract infection) Status: Acute Qualifiers: Urinary tract infection type: U Hematuria presence: H Indwelling urinary catheter type: I Encounter type: E Plan: vancomycin IV and Levaquin
--- NOTE | 2016-09-03 12:31 | PCM.PROG ---
Progress Note - Progress Note for Day of Date: 09/03/16 - Subjective Subjective: Patient Is a 89 yo female admitted with chest pain. Patient is awake this am and she states she is feeling better. She has a large hematoma to left side of chest with bruising extending to her right breast. Patient hemoglobin dropped to 7.9 at 0035 and was transfused 2 units of PRBC. Patient is to have cast removed that was put in place by Dr. Usama gardiner at [facility] wound clinic related to wounds on lower extremity and order the dankin solution as per human resources benefits specialist. Vital signs this am are 97.7, 83, 18, 96%, 126/58.l Labs this am are within normal limits with the exception of WBC 10.2, RBC 3.43, Hgb 10.6, Hct 30.2, MCHC 35.1, Lymph% 12.7, Neut# 7.5, Kings# 1.1, Eos# 0.3, INR 1.16, Sodium 145, BUN 24, Est GFR 55, Glucose 145, Calcium 8.4, Total bilirubin , Alkaline phosphatase 41, Total protein 6.0, albumin 2.3, Albumin/globulin Ratio 0.6. Daughter voiced concern of weakness and we will have physical therapy to evaluate. Patient is developing moist areas under breast we are going to start nyastatin powder. Urine culture grew out enterococcus faecalis which is sensitive to vancomycin we are going to discontinue the levaquin as it is resistant. We will follow up in the am with repeat labs. - Past Medical Family Social History Past Med/Fam/Surg Hx: No changes since H&P Allergies: Allergies clindamycin Allergy (Intermediate, Verified 08/31/16 13:09) RASH Sulfa (Sulfonamide Antibiotics) Allergy (Verified 08/31/16 13:11) - Review of Systems ROS: No change since H&P - Vital Signs and I&O's Vital Signs: Temperature 98.0 F Pulse Rate [Right Brachial] 82 Respiratory Rate 20 Blood Pressure [Left Calf] 131/54 Blood Pressure [Right Thigh] 109/58 Blood Pressure [Right Arm] 129/63 O2 Sat by Pulse Oximetry 97 Intake and Output: Intake & Output 09/01/16 09/02/16 09/03/16 09/04/16 11:59 11:59 11:59 11:59 Intake Total 650 1930 1700 Output Total 425 2150 1625 Balance 225 -220 75 - Physical Exam Oriented: Normal Eyes: Normal Ear: Normal Nose: Normal Throat: Normal Respiratory: Normal Cardiovascular: Normal : Normal Auscultation: Bowel Sounds: Normal Tenderness: Normal Skin: Other (Hematoma to left chest, bruising to left chest extending to right chest, moisture under breast) Musculoskeletal: Instability Psychiatric: Normal Mood Description: Calm Affect: Normal Speech Pattern: Clear, Appropriate - Laboratory and Diagnostics Result Diagrams: 09/03/16 10:05 09/03/16 10:05 Labs: 08/31/16 07:49 Urine,Clean Catch Urine Culture - Final Enterococcus Faecalis Laboratory WBC 10.2 X10^3/uL (3.6-10.0) H 09/03/16 10:05 RBC 3.43 X10^6/uL (3.5-5.4) L 09/03/16 10:05 Hgb 10.6 g/dL (12.0-16.0) L 09/03/16 10:05 Hct 30.2 % (36.0-47.0) L 09/03/16 10:05 MCV 88.0 fL (80.0-100.0) 09/03/16 10:05 MCH 30.9 pg (27.0-34.0) 09/03/16 10:05 MCHC 35.1 g/dL (33.0-35.0) H 09/03/16 10:05 RDW 14.9 % (11.6-16.5) 09/03/16 10:05 Plt Count 184 X10^3/uL (150.0-450.0) 09/03/16 10:05 Plt Count Comment Adequate (ADEQUATE) 09/01/16 05:21 MPV 7.8 fL (7.4-11.0) 09/03/16 10:05 Neut % 73.3 % (42.0-75.0) 09/03/16 10:05 Lymph % 12.7 % (21.0-51.0) L 09/03/16 10:05 Kings % 11.1 % (0.0-13.0) 09/03/16 10:05 Eos % 2.6 % (0.9-2.9) 09/03/16 10:05 Baso % 0.3 % (0.2-1.0) 09/03/16 10:05 Neut # 7.5 x10^3/uL (2.2-4.8) H 09/03/16 10:05 Lymph # 1.3 X10^3/uL (1.3-2.9) 09/03/16 10:05 Kings # 1.1 x10^3/uL (0.3-0.8) H 09/03/16 10:05 Eos # 0.3 x10^3/uL (0.0-0.2) H 09/03/16 10:05 Baso # 0.0 X10^3/uL (0.0-0.1) 09/03/16 10:05 Absolute Nucleated RBC 0.0 /100WBC 09/03/16 10:05 Total Counted 100 09/01/16 05:21 Neutrophils % (Manual) 79 % (39-76) H 09/01/16 05:21 Band Neutrophils % 5 % (0-10) 09/01/16 05:21 Lymphocytes % (Manual) 6 % (13-43) L 09/01/16 05:21 Monocytes % (Manual) 8 % (4-9) 09/01/16 05:21 Eosinophils % (Manual) 2 % (0-6) 09/01/16 05:21 Plt Morphology Comment Normal (NORMAL) 09/01/16 05:21 RBC Morphology Normal (NORMAL) 09/01/16 05:21 INR Target Range - 09/03/16 10:05 INR 1.16 (0.8-1.3) 09/03/16 10:05 Sodium 134 mmol/L (136-145) L 09/03/16 10:05 Corrected Sodium 135 mmol/L (136-145) L 09/03/16 10:05 Potassium 4.5 mmol/L (3.5-5.1) 09/03/16 10:05 Chloride 104 mmol/L (98-107) 09/03/16 10:05 Carbon Dioxide 24.7 mmol/L (21-32) 09/03/16 10:05 BUN 24 mg/dL (7-18) H 09/03/16 10:05 Creatinine 1.00 mg/dL (0.55-1.02) 09/03/16 10:05 Est GFR (MDRD) Af Amer > 60 (>60) 09/03/16 10:05 Est GFR (MDRD) Non-Af 55 (>60) L 09/03/16 10:05 Glucose 145 mg/dL (65-99) H 09/03/16 10:05 Calcium 8.4 mg/dL (8.5-10.1) L 09/03/16 10:05 Corrected Calcium 9.8 mg/dL (8.5-10.1) 09/03/16 10:05 Total Bilirubin 1.10 mg/dL (0.2-1.0) H 09/03/16 10:05 AST 25 Units/L (15-37) 09/03/16 10:05 ALT 13 Units/L (12-78) 09/03/16 10:05 Alkaline Phosphatase 41 Units/L (46-116) L 09/03/16 10:05 Creatine Kinase 238 Units/L (26-192) H 08/31/16 11:05 CK-MB (CK-2) 1.0 ng/mL (0-4.0) 08/31/16 11:05 CK/CKMB % Calc 0.4 % (<4) 08/31/16 11:05 Troponin I < 0.02 ng/mL (0-1.5) 08/31/16 11:05 Total Protein 6.0 g/dL (6.4-8.2) L 09/03/16 10:05 Albumin 2.3 g/dL (3.4-5.0) L 09/03/16 10:05 Globulin 3.7 g/dL (2.5-4.5) 09/03/16 10:05 Albumin/Globulin Ratio 0.6 Ratio (1.1-2.1) L 09/03/16 10:05 Triglycerides 97 mg/dL (0-150) 08/31/16 04:50 Cholesterol 113 mg/dL (0-200) 08/31/16 04:50 LDL Cholesterol, Calc 56 mg/dL (0-100) 08/31/16 04:50 HDL Cholesterol 38 mg/dL (40-60) L 08/31/16 04:50 Cholesterol/HDL Ratio 3.0 (0.0-5.0) 08/31/16 04:50 Specimen Type Catherized urine 08/31/16 07:49 Urine Color Yellow (YELLOW) 08/31/16 07:49 Urine Appearance Hazy (CLEAR) 08/31/16 07:49 Urine pH 5.0 (5.0 - 8.0) 08/31/16 07:49 Ur Specific [place] 1.015 (1.000-1.030) 08/31/16 07:49 Urine Protein 1+ (NEGATIVE) 08/31/16 07:49 Urine Glucose (UA) Negative (NEGATIVE) 08/31/16 07:49 Urine Ketones Negative (NEGATIVE) 08/31/16 07:49 Urine Occult Blood 1+ (NEGATIVE) 08/31/16 07:49 Urine Nitrite Negative (NEGATIVE) 08/31/16 07:49 Urine Bilirubin 2+ (NEGATIVE) 08/31/16 07:49 Urine Urobilinogen Normal (NORMAL) 08/31/16 07:49 Ur Leukocyte Esterase 2+ (NEGATIVE) 08/31/16 07:49 Urine RBC 0-2 /HPF (NEGATIVE) 08/31/16 07:49 Urine WBC 11-20 /HPF (NEGATIVE) 08/31/16 07:49 Ur Squamous Epith Cells Rare /HPF (NEGATIVE) 08/31/16 07:49 Urine Bacteria Trace /HPF (NEGATIVE) 08/31/16 07:49 Ur Culture Indicated? Yes/culture set up 08/31/16 07:49 Blood Type AB POSITIVE 08/31/16 08:12 Antibody Screen Negative 08/31/16 08:12 Crossmatch See Detail 08/31/16 08:12 - Plan (1) Anemia Status: Acute Qualifiers: Anemia type: A Iron deficiency anemia type: I Vitamin B12 deficiency anemia type: V Folate deficiency anemia type: F Bone marrow failure anemia type: B Hemolytic anemia type: H Other causes of anemia: O Chronic kidney disease stage: C Plan: H&H q8hr transfuse if less than 8.0 (2) UTI (urinary tract infection) Status: Acute Qualifiers: Urinary tract infection type: U Hematuria presence: H Indwelling urinary catheter type: I Encounter type: E Plan: vancomycin IV and Levaquin (3) Enterococcus faecalis infection Status: Acute Plan: Vancomycin IV (4) Hypothyroidism Status: Acute Qualifiers: Hypothyroidism type: H Plan: continue synthroid (5) Depression Status: Chronic Qualifiers: Depression Type: D Major depression recurrence: M Active/Remission status : A Major depression episode severity: M Psychotic features: P Trimester: T Plan: continue celexa (6) Parkinson disease Status: Chronic Plan: continue sinemet
[2016-09-03 15:27] LABS: HEMATOCRIT 29.7 % (36.0-47.0); HEMOGLOBIN 10.4 g/dL (12.0-16.0)
[2016-09-03 21:04] LABS: CREATININE 0.99 mg/dL (0.55-1.02); VANCOMYCIN,TROUGH 17.3 ug/mL (15-20)
[2016-09-03] MEDS: CELEXA PO SCH (21:57)
[2016-09-03] MEDS: ZyrTEC TAB 10 MG PO SCH (21:58)
[2016-09-03 22:45] LABS: HEMATOCRIT 30.4 % (36.0-47.0); HEMOGLOBIN 10.4 g/dL (12.0-16.0)
[2016-09-04 04:53] LABS: BASOPHILS % (AUTO) 0.4 % (0.2-1.0); EOSINOPHILS # (AUTO) 0.5 x10^3/uL (0.0-0.2); EOSINOPHILS % (AUTO) 4.6 % (0.9-2.9); HEMATOCRIT 29.9 % (36.0-47.0); HEMOGLOBIN 10.6 g/dL (12.0-16.0); LYMPHOCYTES # (AUTO) 1.4 X10^3/uL (1.3-2.9); LYMPHOCYTES % (AUTO) 12.4 % (21.0-51.0); MEAN CORPUSCULAR HEMOGLOBIN 30.7 pg (27.0-34.0); MEAN CORPUSCULAR HGB CONC 35.3 g/dL (33.0-35.0); MEAN PLATELET VOLUME 7.9 fL (7.4-11.0); MONOCYTES # (AUTO) 1.5 x10^3/uL (0.3-0.8); NEUTROPHILS # (AUTO) 7.6 x10^3/uL (2.2-4.8); NEUTROPHILS % (AUTO) 68.6 % (42.0-75.0); PLATELET COUNT 208 X10^3/uL (150.0-450.0); RED BLOOD COUNT 3.44 X10^6/uL (3.5-5.4); RED CELL DISTRIBUTION WIDTH 14.4 % (11.6-16.5); WHITE BLOOD COUNT 11.1 X10^3/uL (3.6-10.0)
[2016-09-04 05:03] LABS: ALANINE AMINOTRANSFERASE 12 Units/L (12-78); ALBUMIN 2.3 g/dL (3.4-5.0); ALKALINE PHOSPHATASE 40 Units/L (46-116); ASPARTATE AMINO TRANSFERASE 20 Units/L (15-37); BLOOD UREA NITROGEN 18 mg/dL (7-18); CALCIUM 8.5 mg/dL (8.5-10.1); CARBON DIOXIDE 25.5 mmol/L (21-32); CHLORIDE 104 mmol/L (98-107); COR CA(FOR HYPOALB) 9.9 mg/dL (8.5-10.1); COR NA(FOR HYPERGLY) 136 mmol/L (136-145); CREATININE 0.83 mg/dL (0.55-1.02); GLUCOSE 128 mg/dL (65-99); SODIUM 135 mmol/L (136-145); eGFR BLACK RACES > 60 (>60); eGFR NON BLACK RACES > 60 (>60)
[2016-09-04] MEDS: SINEMET (PLAIN) 25/100 MG PO SCH ×3 (05:33→21:53)
[2016-09-04] MEDS: LYRICA CAP 50 MG PO SCH ×3 (05:33→21:50)
[2016-09-04 05:41] LABS: BAND NEUTROPHILS % 11 % (0-10)
[2016-09-04 05:42] LABS: PLATELET MORPHOLOGY COMMENT NORMAL (NORMAL)
[2016-09-04] MEDS: SYNTHROID 150 mcg TAB PO SCH (06:00)
[2016-09-04] MEDS: VANCOMYCIN 1 GM PREMIX (ADDVANTAGE) 250 ML IV SCH ×2 (08:38→21:57)
[2016-09-04] MEDS: VITAMIN C PO SCH (08:39)
[2016-09-04] MEDS: MICRO K EXTEN CAP 10 MEQ PO SCH ×2 (08:40→21:53)
[2016-09-04] MEDS: COLACE CAP 100 MG PO PRN (08:41)
[2016-09-04] MEDS: WELCHOL PO SCH ×2 (08:41→21:53)
[2016-09-04] MEDS: NYSTATIN POWDER TOP SCH ×2 (08:42→21:57)
[2016-09-04] MEDS: DAKINS SOLUTION FULL STRENGTH TOP SCH (08:42)
[2016-09-04] MEDS: PATIENT'S HOME MEDICATION PO SCH ×2 (08:43)
[2016-09-04] MEDS ORDERED: NS 100 ML IV 100 ML IV ONE (17:49)
--- NOTE | 2016-09-04 19:09 | CT ---
CT chest with contrast Indication: Left-sided chest mass Comparison: CT chest 08/31/2016 Technique: CT images of the chest were obtained after IV contrast administration. Automatic exposure control was utilized. Findings: Bulky left-sided subpectoral soft tissue masses appear stable to mildly decreased in size, currently measuring approximately 11.9 x 3.6 cm in maximum axial dimension. Central hypoattenuation within the larger of these masses suggesting necrosis is decreased. Diffuse subcutaneous stranding of the left upper chest wall is significantly improved. The heart size is normal, without significant pericardial thickening or pericardial effusion. The th oracic aorta appears grossly normal. No large central pulmonary arterial filling defect is seen. The re is a right subclavian Port-A-Cath with the catheter terminating in the lower SVC. No bulky intrat horacic lymph nodes are seen. There is a stable area of ground-glass within the medial left upper lobe. Multiple previously descri bed noncalcified subcentimeter left lung nodules are unchanged. No acute consolidation, pleural effu luis, or pneumothorax. The major airways are grossly patent. Images through the upper abdomen demonstrate no significant abnormality. No aggressive osseous lesion identified. 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 Impression: Left chest wall masses appear stable to mildly decreased in size and are again concerning for metast atic disease. There has been significant interval improvement in the previously noted chest wall fat stranding. Stable left pulmonary nodules Reported By:
[2016-09-04] MEDS: CELEXA PO SCH (21:50)
[2016-09-04] MEDS: ZyrTEC TAB 10 MG PO SCH (21:53)
[2016-09-04 22:10] LABS: HEMATOCRIT 31.5 % (36.0-47.0)
[2016-09-05 04:39] LABS: BASOPHILS # (AUTO) 0.1 X10^3/uL (0.0-0.1); BASOPHILS % (AUTO) 0.6 % (0.2-1.0); EOSINOPHILS # (AUTO) 0.6 x10^3/uL (0.0-0.2); EOSINOPHILS % (AUTO) 5.2 % (0.9-2.9); HEMATOCRIT 30.9 % (36.0-47.0); HEMOGLOBIN 10.7 g/dL (12.0-16.0); LYMPHOCYTES # (AUTO) 1.3 X10^3/uL (1.3-2.9); LYMPHOCYTES % (AUTO) 10.4 % (21.0-51.0); MEAN CORPUSCULAR HEMOGLOBIN 30.4 pg (27.0-34.0); MEAN CORPUSCULAR HGB CONC 34.5 g/dL (33.0-35.0); MEAN CORPUSCULAR VOLUME 88.2 fL (80.0-100.0); MEAN PLATELET VOLUME 7.7 fL (7.4-11.0); MONOCYTES # (AUTO) 1.2 x10^3/uL (0.3-0.8); MONOCYTES % (AUTO) 9.8 % (0.0-13.0); NEUTROPHILS # (AUTO) 9.2 x10^3/uL (2.2-4.8); PLATELET COUNT 247 X10^3/uL (150.0-450.0); RED CELL DISTRIBUTION WIDTH 14.3 % (11.6-16.5); WHITE BLOOD COUNT 12.4 X10^3/uL (3.6-10.0)
[2016-09-05 04:52] LABS: ALANINE AMINOTRANSFERASE 12 Units/L (12-78); ALBUMIN 2.2 g/dL (3.4-5.0); ALKALINE PHOSPHATASE 42 Units/L (46-116); ASPARTATE AMINO TRANSFERASE 17 Units/L (15-37); BLOOD UREA NITROGEN 15 mg/dL (7-18); CALCIUM 8.4 mg/dL (8.5-10.1); CARBON DIOXIDE 26.8 mmol/L (21-32); CHLORIDE 101 mmol/L (98-107); COR CA(FOR HYPOALB) 9.8 mg/dL (8.5-10.1); COR NA(FOR HYPERGLY) 135 mmol/L (136-145); CREATININE 0.83 mg/dL (0.55-1.02); GLUCOSE 122 mg/dL (65-99); SODIUM 134 mmol/L (136-145); TOTAL PROTEIN 6.1 g/dL (6.4-8.2); eGFR BLACK RACES > 60 (>60); eGFR NON BLACK RACES > 60 (>60)
[2016-09-05] MEDS: SINEMET (PLAIN) 25/100 MG PO SCH ×3 (06:23→21:55)
[2016-09-05] MEDS: SYNTHROID 150 mcg TAB PO SCH (06:23)
[2016-09-05] MEDS: LYRICA CAP 50 MG PO SCH ×3 (06:23→21:55)
[2016-09-05] MEDS: PATIENT'S HOME MEDICATION PO SCH ×2 (09:00→11:21)
[2016-09-05] MEDS: DAKINS SOLUTION FULL STRENGTH TOP SCH (09:00)
[2016-09-05] MEDS: VITAMIN C PO SCH (09:03)
[2016-09-05] MEDS: MICRO K EXTEN CAP 10 MEQ PO SCH ×2 (09:04→21:55)
[2016-09-05] MEDS: WELCHOL PO SCH ×2 (09:04→21:55)
[2016-09-05] MEDS: VANCOMYCIN 1 GM PREMIX (ADDVANTAGE) 250 ML IV SCH ×2 (09:04→21:56)
[2016-09-05] MEDS: NYSTATIN POWDER TOP SCH ×2 (11:21→21:57)
[2016-09-05] MEDS ORDERED: BUTT CREAM (COMPOUND) ONE (13:57)
[2016-09-05 20:26] LABS: CREATININE 0.81 mg/dL (0.55-1.02)
[2016-09-05 20:42] LABS: VANCOMYCIN,TROUGH 12.1 ug/mL (15-20)
[2016-09-05] MEDS: ZyrTEC TAB 10 MG PO SCH (21:55)
[2016-09-05] MEDS: MILK OF MAGNESIA PO PRN (21:55)
[2016-09-05] MEDS: CELEXA PO SCH (22:00)
[2016-09-06] MEDS: SINEMET (PLAIN) 25/100 MG PO SCH (06:22)
[2016-09-06] MEDS: LYRICA CAP 50 MG PO SCH (06:22)
[2016-09-06] MEDS: SYNTHROID 150 mcg TAB PO SCH (06:22)
--- NOTE | 2016-09-06 07:52 | US ---
Limited left chest wall ultrasound Indication: Left chest wall mass with bruising Comparison: Chest CT on 08/31/16 and 09/04/16 Technique: Real-time grayscale color Doppler imaging of the left chest was performed. Findings: There is a heterogeneous hypoechoic collection within the anterior left chest wall which e xtends approximately from the sternum to the left lateral chest wall/axillary region. The hypoechoic collection demonstrates no internal color Doppler flow. Impression: Large heterogeneous hypoechoic collection within the anterior left chest wall has sonogr aphic findings most consistent with a complex fluid collection likely representing a hematoma. Tavo rison with prior two chest CTs demonstrates moderate decrease in subcutaneous edema and overall slig ht decrease in size of collection again likely representing a hematoma. The possibly of underlying b leeding lymph node or mass cannot be entirely excluded by this examination however there is no defin ite mass with color Doppler flow identified on the sonogram. Recommend followup chest CT in approxim ately 2 weeks with continued stabilization of the INR for confirmation of hematoma and exclusion of underlying mass. Findings were discussed with Dr. Martinez by Dr. Sanchez at approximately 1:30 p.m. On 09/05/2016. Reported By:
[2016-09-06] MEDS: VANCOMYCIN 1 GM PREMIX (ADDVANTAGE) 250 ML IV SCH (08:39)
[2016-09-06] MEDS: MICRO K EXTEN CAP 10 MEQ PO SCH (08:44)
[2016-09-06] MEDS: WELCHOL PO SCH (08:45)
[2016-09-06] MEDS: VITAMIN C PO SCH (08:45)
[2016-09-06] MEDS: PATIENT'S HOME MEDICATION PO SCH ×2 (08:48→09:00)
[2016-09-06 12:46] VITALS: BP 130/73
== END 2016-09-06 15:20 | disposition swing bed (61) | DRG 181 ==
LOC: ER 22:17 → MED/SURG 08-31 01:09 → OBSVTOIN 09-01 07:30
PROVIDERS: ADMIT Obstetrics & Gynecology Obstetrics; ATTEND Obstetrics & Gynecology Obstetrics
PROC: 30233N1 Transfusion of Nonautologous Red Blood Cells into Peripheral Vein, Percutaneous Approach (ICD-10-PCS; principal; 2016-09-01)
PROC: 30233N1 Transfusion of Nonautologous Red Blood Cells into Peripheral Vein, Percutaneous Approach (ICD-10-PCS; 2016-09-01)
PROC: 30233N1 Transfusion of Nonautologous Red Blood Cells into Peripheral Vein, Percutaneous Approach (ICD-10-PCS; 2016-09-03)
PROC: 30233N1 Transfusion of Nonautologous Red Blood Cells into Peripheral Vein, Percutaneous Approach (ICD-10-PCS; 2016-09-03)
DX: C76.1 Malignant neoplasm of thorax (principal); R07.2 Precordial pain; M54.2 Cervicalgia; M79.602 Pain in left arm; M25.512 Pain in left shoulder; R06.02 Shortness of breath; R94.31 Abnormal electrocardiogram [ECG] [EKG]; R79.1 Abnormal coagulation profile; D64.89 Other specified anemias; I10 Essential (primary) hypertension; E03.8 Other specified hypothyroidism; B95.2 Enterococcus as the cause of diseases classified elsewhere; S20.212A Contusion of left front wall of thorax, initial encounter; S20.211A Contusion of right front wall of thorax, initial encounter; N39.0 Urinary tract infection, site not specified; R26.89 Other abnormalities of gait and mobility; Z85.3 Personal history of malignant neoplasm of breast
CPT/HCPCS: 36415; 36430; 36591; 71010; 71250; 71260; 80053; 80061; 80202; 81001; 82550; 82553; 82565; 84484; 85014; 85018; 85025; 85610; 86850; 86900; 86901; 86922; 87040; 87086; 87088; 87186; 93005; 93010; 94760; 96365; 96374; 96375; 97535; 99284; A4216; A4217; A4222; P9016; G0378; J1200; J1956; J2001; J2270; J2405; J3370; J3430

== ENCOUNTER 2016-09-06 15:20 | Inpatient (IN) | payer OTHER, MEDICAID ==
[2016-09-06] MEDS ORDERED: ZOFRAN INJ 4 MG VIAL IVP PRN (15:53)
[2016-09-06] MEDS ORDERED: TYLENOL 325 MG TAB PO PRN (15:54)
[2016-09-06] MEDS ORDERED: GENTAMICIN TOPICAL CRM EXT PRN (15:54)
[2016-09-06] MEDS ORDERED: LOTRISONE CREAM 15 G TOP PRN (15:55)
[2016-09-06] MEDS: ASTELIN NASAL SPRAY ENOSTRIL SCH ×2 (16:23→20:53)
[2016-09-06] MEDS ORDERED: ASTELIN NASAL SPRAY ENOSTRIL ONE (16:24)
[2016-09-06 16:42] VITALS: BMI 44.9
[2016-09-06] MEDS: VIBRAMYCIN PO SCH (20:43)
[2016-09-06] MEDS: MILK OF MAGNESIA PO PRN (20:43)
[2016-09-06] MEDS: COLACE CAP 100 MG PO PRN (20:44)
[2016-09-06] MEDS: MICRO K EXTEN CAP 10 MEQ PO SCH (20:45)
[2016-09-06] MEDS: CELEXA PO SCH (20:46)
[2016-09-06] MEDS: NYSTATIN POWDER TOP SCH (20:54)
[2016-09-06] MEDS: ZyrTEC TAB 10 MG PO SCH (20:56)
[2016-09-06] MEDS: WELCHOL PO SCH (20:57)
[2016-09-06] MEDS: LYRICA CAP 50 MG PO SCH (21:00)
[2016-09-06] MEDS: SINEMET (PLAIN) 25/100 MG PO SCH (21:01)
[2016-09-07] MEDS: LYRICA CAP 50 MG PO SCH ×3 (06:07→21:35)
[2016-09-07] MEDS: SINEMET (PLAIN) 25/100 MG PO SCH ×3 (06:07→21:35)
[2016-09-07] MEDS: SYNTHROID 150 mcg TAB PO SCH (06:07)
[2016-09-07] MEDS: NYSTATIN POWDER TOP SCH ×2 (08:40→21:37)
[2016-09-07] MEDS: MICRO K EXTEN CAP 10 MEQ PO SCH ×2 (08:40→21:35)
[2016-09-07] MEDS: ASTELIN NASAL SPRAY ENOSTRIL SCH ×2 (08:40→21:37)
[2016-09-07] MEDS: ZyrTEC TAB 10 MG PO SCH ×2 (08:40→21:35)
[2016-09-07] MEDS: VITAMIN C PO SCH (08:45)
[2016-09-07] MEDS: DAKINS SOLUTION FULL STRENGTH TOP SCH (08:45)
[2016-09-07] MEDS: HYDROCHLOROTHIAZIDE 12.5 MG CAP PO SCH (08:45)
[2016-09-07] MEDS: WELCHOL PO SCH ×2 (08:45→21:33)
[2016-09-07] MEDS: VIBRAMYCIN PO SCH ×2 (08:45→21:34)
[2016-09-07] MEDS: COZAAR PO SCH (08:45)
[2016-09-07] MEDS: TAB-A-VITE PO SCH (08:45)
[2016-09-07] MEDS ORDERED: GENTAMICIN TOPICAL CRM EXT PRN (09:05)
[2016-09-07] MEDS ORDERED: TRAMADOL HCL 50 MG PO PRN (09:05)
[2016-09-07] MEDS ORDERED: PATIENT'S HOME MEDICATION (Pregabalin [Lyrica] 50 MG) PO SCH (09:15)
[2016-09-07] MEDS ORDERED: LOSARTAN POTASSIUM 100 MG PO SCH (09:15)
[2016-09-07] MEDS ORDERED: POTASSIUM CHLORIDE 10 MEQ PO SCH (09:15)
[2016-09-07] MEDS ORDERED: PATIENT'S HOME MEDICATION (Multivit-Min/Fa/Lycopen/Lutein [Centrum Silver Tablet] 1 TAB) PO SCH (09:15)
[2016-09-07] MEDS ORDERED: HONEY TD SCH (09:15)
[2016-09-07] MEDS ORDERED: LEVOTHYROXINE SODIUM 150 MCG PO SCH (09:15)
[2016-09-07] MEDS ORDERED: ZINC 100 MG PO SCH (09:15)
[2016-09-07] MEDS ORDERED: PATIENT'S HOME MEDICATION (Levocetirizine Dihydrochloride [Xyzal] 5 MG) PO SCH (09:15)
[2016-09-07] MEDS ORDERED: ULTRAM PO PRN (09:54)
[2016-09-07] MEDS ORDERED: VITAMIN C PO SCH (10:00)
[2016-09-07] MEDS ORDERED: WELCHOL PO SCH (10:00)
[2016-09-07] MEDS: PATIENT'S HOME MEDICATION PO SCH (11:35)
[2016-09-07] MEDS: PATIENT'S HOME MEDICATION EXT SCH (11:36)
[2016-09-07] MEDS ORDERED: CITALOPRAM HYDROBROMIDE 10 MG PO SCH (21:00)
[2016-09-07] MEDS: CELEXA PO SCH (21:34)
[2016-09-08] MEDS: COLACE CAP 100 MG PO PRN (03:45)
[2016-09-08] MEDS: MILK OF MAGNESIA PO PRN (03:48)
[2016-09-08] MEDS: SINEMET (PLAIN) 25/100 MG PO SCH ×3 (05:37→21:04)
[2016-09-08] MEDS: LYRICA CAP 50 MG PO SCH ×3 (05:37→21:03)
[2016-09-08] MEDS: SYNTHROID 150 mcg TAB PO SCH (06:13)
[2016-09-08] MEDS: HYDROCHLOROTHIAZIDE 12.5 MG CAP PO SCH (10:05)
[2016-09-08] MEDS: MICRO K EXTEN CAP 10 MEQ PO SCH ×2 (10:05→21:04)
[2016-09-08] MEDS: VITAMIN C PO SCH (10:05)
[2016-09-08] MEDS: TAB-A-VITE PO SCH (10:06)
[2016-09-08] MEDS: ZINC SULFATE PO SCH (10:06)
[2016-09-08] MEDS: WELCHOL PO SCH ×2 (10:06→21:04)
[2016-09-08] MEDS: COZAAR PO SCH (10:06)
[2016-09-08] MEDS: VIBRAMYCIN PO SCH ×2 (10:06→21:04)
[2016-09-08] MEDS: ASTELIN NASAL SPRAY ENOSTRIL SCH ×2 (10:07→21:07)
[2016-09-08] MEDS: DAKINS SOLUTION FULL STRENGTH TOP SCH (10:07)
[2016-09-08] MEDS: PATIENT'S HOME MEDICATION EXT SCH (10:08)
[2016-09-08] MEDS: NYSTATIN POWDER TOP SCH ×2 (10:08→21:07)
[2016-09-08] MEDS: ZyrTEC TAB 10 MG PO SCH ×2 (10:18→21:04)
[2016-09-08] MEDS: PATIENT'S HOME MEDICATION PO SCH (10:18)
[2016-09-08] MEDS: CELEXA PO SCH (21:03)
[2016-09-09] MEDS: MILK OF MAGNESIA PO PRN (05:44)
[2016-09-09] MEDS: SINEMET (PLAIN) 25/100 MG PO SCH ×3 (05:45→21:42)
[2016-09-09] MEDS: LYRICA CAP 50 MG PO SCH ×3 (05:45→21:42)
[2016-09-09] MEDS: COLACE CAP 100 MG PO PRN (05:45)
[2016-09-09] MEDS: SYNTHROID 150 mcg TAB PO SCH (06:10)
[2016-09-09] MEDS: VITAMIN C PO SCH (08:42)
[2016-09-09] MEDS: NYSTATIN POWDER TOP SCH ×2 (08:42→21:44)
[2016-09-09] MEDS: TAB-A-VITE PO SCH (08:42)
[2016-09-09] MEDS: MICRO K EXTEN CAP 10 MEQ PO SCH ×2 (08:42→21:41)
[2016-09-09] MEDS: COZAAR PO SCH (08:42)
[2016-09-09] MEDS: HYDROCHLOROTHIAZIDE 12.5 MG CAP PO SCH (08:42)
[2016-09-09] MEDS: VIBRAMYCIN PO SCH ×2 (08:42→21:41)
[2016-09-09] MEDS: WELCHOL PO SCH ×2 (08:42→21:41)
[2016-09-09] MEDS: ZINC SULFATE PO SCH (08:43)
[2016-09-09] MEDS: ASTELIN NASAL SPRAY ENOSTRIL SCH ×2 (08:43→21:47)
[2016-09-09] MEDS: DAKINS SOLUTION FULL STRENGTH TOP SCH (08:43)
[2016-09-09] MEDS: PATIENT'S HOME MEDICATION EXT SCH (08:43)
[2016-09-09] MEDS: ZyrTEC TAB 10 MG PO SCH (21:42)
[2016-09-09] MEDS: CELEXA PO SCH (21:42)
[2016-09-10 06:09] LABS: ALANINE AMINOTRANSFERASE 13 Units/L (12-78); ALBUMIN 2.5 g/dL (3.4-5.0); ALKALINE PHOSPHATASE 48 Units/L (46-116); ASPARTATE AMINO TRANSFERASE 19 Units/L (15-37); BLOOD UREA NITROGEN 16 mg/dL (7-18); CALCIUM 8.6 mg/dL (8.5-10.1); CARBON DIOXIDE 31.6 mmol/L (21-32); CHLORIDE 100 mmol/L (98-107); COR CA(FOR HYPOALB) 9.8 mg/dL (8.5-10.1); CREATININE 0.76 mg/dL (0.55-1.02); GLUCOSE 103 mg/dL (65-99); SODIUM 134 mmol/L (136-145); TOTAL PROTEIN 6.3 g/dL (6.4-8.2); eGFR BLACK RACES > 60 (>60); eGFR NON BLACK RACES > 60 (>60)
[2016-09-10] MEDS: SINEMET (PLAIN) 25/100 MG PO SCH ×3 (06:15→22:21)
[2016-09-10] MEDS: COLACE CAP 100 MG PO PRN (06:15)
[2016-09-10] MEDS: LYRICA CAP 50 MG PO SCH ×3 (06:15→22:21)
[2016-09-10] MEDS: SYNTHROID 150 mcg TAB PO SCH (06:15)
[2016-09-10] MEDS: MILK OF MAGNESIA PO PRN (06:15)
[2016-09-10 06:19] LABS: BASOPHILS # (AUTO) 0.1 X10^3/uL (0.0-0.1); BASOPHILS % (AUTO) 1.2 % (0.2-1.0); EOSINOPHILS # (AUTO) 0.6 x10^3/uL (0.0-0.2); EOSINOPHILS % (AUTO) 5.9 % (0.9-2.9); HEMATOCRIT 31.2 % (36.0-47.0); HEMOGLOBIN 10.9 g/dL (12.0-16.0); LYMPHOCYTES # (AUTO) 1.3 X10^3/uL (1.3-2.9); LYMPHOCYTES % (AUTO) 13.9 % (21.0-51.0); MEAN CORPUSCULAR HEMOGLOBIN 31.4 pg (27.0-34.0); MEAN CORPUSCULAR HGB CONC 34.8 g/dL (33.0-35.0); MEAN CORPUSCULAR VOLUME 90.3 fL (80.0-100.0); MEAN PLATELET VOLUME 7.8 fL (7.4-11.0); MONOCYTES # (AUTO) 0.9 x10^3/uL (0.3-0.8); NEUTROPHILS # (AUTO) 6.4 x10^3/uL (2.2-4.8); PLATELET COUNT 306 X10^3/uL (150.0-450.0); RED BLOOD COUNT 3.45 X10^6/uL (3.5-5.4); RED CELL DISTRIBUTION WIDTH 14.8 % (11.6-16.5); WHITE BLOOD COUNT 9.3 X10^3/uL (3.6-10.0)
[2016-09-10] MEDS: VITAMIN C PO SCH (09:40)
[2016-09-10] MEDS: COZAAR PO SCH (09:40)
[2016-09-10] MEDS: MICRO K EXTEN CAP 10 MEQ PO SCH ×2 (09:40→22:18)
[2016-09-10] MEDS: HYDROCHLOROTHIAZIDE 12.5 MG CAP PO SCH (09:40)
[2016-09-10] MEDS: ZINC SULFATE PO SCH (09:40)
[2016-09-10] MEDS: TAB-A-VITE PO SCH (09:40)
[2016-09-10] MEDS: PATIENT'S HOME MEDICATION EXT SCH (09:41)
[2016-09-10] MEDS: WELCHOL PO SCH ×2 (09:41→22:21)
[2016-09-10] MEDS: VIBRAMYCIN PO SCH ×2 (09:41→22:20)
[2016-09-10] MEDS: NYSTATIN POWDER TOP SCH ×2 (09:41→22:19)
[2016-09-10] MEDS: ASTELIN NASAL SPRAY ENOSTRIL SCH ×2 (09:42→22:19)
[2016-09-10] MEDS: DAKINS SOLUTION FULL STRENGTH TOP SCH (09:42)
[2016-09-10] MEDS: CELEXA PO SCH (22:17)
[2016-09-10] MEDS: ZyrTEC TAB 10 MG PO SCH (22:21)
[2016-09-11] MEDS: LYRICA CAP 50 MG PO SCH ×3 (06:26→21:31)
[2016-09-11] MEDS: SYNTHROID 150 mcg TAB PO SCH (06:26)
[2016-09-11] MEDS: SINEMET (PLAIN) 25/100 MG PO SCH ×3 (06:26→21:31)
[2016-09-11] MEDS: VITAMIN C PO SCH (09:39)
[2016-09-11] MEDS: MICRO K EXTEN CAP 10 MEQ PO SCH ×2 (09:40→21:30)
[2016-09-11] MEDS: HYDROCHLOROTHIAZIDE 12.5 MG CAP PO SCH (09:40)
[2016-09-11] MEDS: ZINC SULFATE PO SCH (09:40)
[2016-09-11] MEDS: COZAAR PO SCH (09:40)
[2016-09-11] MEDS: WELCHOL PO SCH ×2 (09:40→21:31)
[2016-09-11] MEDS: TAB-A-VITE PO SCH (09:40)
[2016-09-11] MEDS: ASTELIN NASAL SPRAY ENOSTRIL SCH ×2 (09:41→21:29)
[2016-09-11] MEDS: PATIENT'S HOME MEDICATION EXT SCH (09:41)
[2016-09-11] MEDS: NYSTATIN POWDER TOP SCH ×2 (09:41→21:31)
[2016-09-11] MEDS: DAKINS SOLUTION FULL STRENGTH TOP SCH (09:41)
[2016-09-11] MEDS: CELEXA PO SCH (21:29)
[2016-09-11] MEDS: ZyrTEC TAB 10 MG PO SCH (21:31)
[2016-09-12] MEDS: SYNTHROID 150 mcg TAB PO SCH (06:04)
[2016-09-12] MEDS: LYRICA CAP 50 MG PO SCH ×3 (06:05→22:00)
[2016-09-12] MEDS: SINEMET (PLAIN) 25/100 MG PO SCH ×3 (06:05→21:00)
[2016-09-12] MEDS: ZINC SULFATE PO SCH (08:35)
[2016-09-12] MEDS: VITAMIN C PO SCH (08:35)
[2016-09-12] MEDS: WELCHOL PO SCH ×2 (08:35→21:00)
[2016-09-12] MEDS: COZAAR PO SCH (08:35)
[2016-09-12] MEDS: HYDROCHLOROTHIAZIDE 12.5 MG CAP PO SCH (08:35)
[2016-09-12] MEDS: MICRO K EXTEN CAP 10 MEQ PO SCH ×2 (08:35→20:59)
[2016-09-12] MEDS: ASTELIN NASAL SPRAY ENOSTRIL SCH ×2 (08:36→20:56)
[2016-09-12] MEDS: TAB-A-VITE PO SCH (08:36)
[2016-09-12] MEDS: DAKINS SOLUTION FULL STRENGTH TOP SCH (08:37)
[2016-09-12] MEDS: NYSTATIN POWDER TOP SCH ×2 (09:00→21:09)
[2016-09-12] MEDS: PATIENT'S HOME MEDICATION EXT SCH (09:00)
[2016-09-12] MEDS: CELEXA PO SCH (20:58)
[2016-09-12] MEDS: ZyrTEC TAB 10 MG PO SCH (21:01)
[2016-09-13] MEDS: SYNTHROID 150 mcg TAB PO SCH (06:40)
[2016-09-13] MEDS: LYRICA CAP 50 MG PO SCH ×5 (06:40→22:29)
[2016-09-13] MEDS: SINEMET (PLAIN) 25/100 MG PO SCH ×3 (06:42→22:26)
[2016-09-13] MEDS: MICRO K EXTEN CAP 10 MEQ PO SCH ×2 (09:57→20:01)
[2016-09-13] MEDS: VITAMIN C PO SCH (09:57)
[2016-09-13] MEDS: WELCHOL PO SCH ×2 (09:58→20:01)
[2016-09-13] MEDS: ASTELIN NASAL SPRAY ENOSTRIL SCH ×2 (09:58→20:03)
[2016-09-13] MEDS: ZINC SULFATE PO SCH (09:58)
[2016-09-13] MEDS: HYDROCHLOROTHIAZIDE 12.5 MG CAP PO SCH (09:58)
[2016-09-13] MEDS: DAKINS SOLUTION FULL STRENGTH TOP SCH (09:58)
[2016-09-13] MEDS: COZAAR PO SCH (09:58)
[2016-09-13] MEDS: NYSTATIN POWDER TOP SCH ×2 (09:58→20:03)
[2016-09-13] MEDS: TAB-A-VITE PO SCH (09:58)
[2016-09-13] MEDS: PATIENT'S HOME MEDICATION EXT SCH (09:59)
[2016-09-13] MEDS: ZyrTEC TAB 10 MG PO SCH (20:01)
[2016-09-13] MEDS: CELEXA PO SCH (20:01)
[2016-09-14] MEDS: LYRICA CAP 50 MG PO SCH ×3 (05:29→21:15)
[2016-09-14] MEDS: SINEMET (PLAIN) 25/100 MG PO SCH ×3 (05:29→21:15)
[2016-09-14] MEDS: SYNTHROID 150 mcg TAB PO SCH (06:21)
[2016-09-14] MEDS: TAB-A-VITE PO SCH (10:15)
[2016-09-14] MEDS: VITAMIN C PO SCH (10:15)
[2016-09-14] MEDS: WELCHOL PO SCH ×2 (10:15→21:15)
[2016-09-14] MEDS: ZINC SULFATE PO SCH (10:15)
[2016-09-14] MEDS: MICRO K EXTEN CAP 10 MEQ PO SCH ×2 (10:15→21:14)
[2016-09-14] MEDS: COZAAR PO SCH (10:15)
[2016-09-14] MEDS: HYDROCHLOROTHIAZIDE 12.5 MG CAP PO SCH (10:15)
[2016-09-14] MEDS: NYSTATIN POWDER TOP SCH ×2 (10:16→21:18)
[2016-09-14] MEDS: ASTELIN NASAL SPRAY ENOSTRIL SCH ×2 (10:16→21:18)
[2016-09-14] MEDS: DAKINS SOLUTION FULL STRENGTH TOP SCH (10:16)
[2016-09-14] MEDS: PATIENT'S HOME MEDICATION EXT SCH (10:16)
[2016-09-14] MEDS: ZyrTEC TAB 10 MG PO SCH (21:15)
[2016-09-14] MEDS: CELEXA PO SCH (21:15)
[2016-09-15] MEDS: SINEMET (PLAIN) 25/100 MG PO SCH ×3 (05:53→22:28)
[2016-09-15] MEDS: LYRICA CAP 50 MG PO SCH ×3 (05:53→22:28)
[2016-09-15] MEDS: SYNTHROID 150 mcg TAB PO SCH (06:00)
[2016-09-15] MEDS: MICRO K EXTEN CAP 10 MEQ PO SCH ×2 (09:32→20:24)
[2016-09-15] MEDS: ZINC SULFATE PO SCH (09:32)
[2016-09-15] MEDS: VITAMIN C PO SCH (09:32)
[2016-09-15] MEDS: TAB-A-VITE PO SCH (09:32)
[2016-09-15] MEDS: WELCHOL PO SCH ×2 (09:32→20:21)
[2016-09-15] MEDS: COZAAR PO SCH (09:32)
[2016-09-15] MEDS: ASTELIN NASAL SPRAY ENOSTRIL SCH ×2 (09:33→20:24)
[2016-09-15] MEDS: HYDROCHLOROTHIAZIDE 12.5 MG CAP PO SCH (09:33)
[2016-09-15] MEDS: NYSTATIN POWDER TOP SCH ×2 (09:34→20:24)
[2016-09-15] MEDS: PATIENT'S HOME MEDICATION EXT SCH (09:35)
[2016-09-15] MEDS: DAKINS SOLUTION FULL STRENGTH TOP SCH (09:36)
[2016-09-15] MEDS: COLACE CAP 100 MG PO PRN (20:21)
[2016-09-15] MEDS: CELEXA PO SCH (20:21)
[2016-09-15] MEDS: ZyrTEC TAB 10 MG PO SCH (20:21)
[2016-09-16] MEDS: SINEMET (PLAIN) 25/100 MG PO SCH ×3 (06:09→22:36)
[2016-09-16] MEDS: SYNTHROID 150 mcg TAB PO SCH (06:09)
[2016-09-16] MEDS: LYRICA CAP 50 MG PO SCH ×3 (06:09→22:36)
[2016-09-16] MEDS: MICRO K EXTEN CAP 10 MEQ PO SCH ×2 (09:17→20:22)
[2016-09-16] MEDS: ZINC SULFATE PO SCH (09:17)
[2016-09-16] MEDS: WELCHOL PO SCH ×2 (09:17→20:23)
[2016-09-16] MEDS: HYDROCHLOROTHIAZIDE 12.5 MG CAP PO SCH (09:17)
[2016-09-16] MEDS: COZAAR PO SCH (09:18)
[2016-09-16] MEDS: VITAMIN C PO SCH (09:18)
[2016-09-16] MEDS: TAB-A-VITE PO SCH (09:19)
[2016-09-16] MEDS: ASTELIN NASAL SPRAY ENOSTRIL SCH ×2 (09:20→20:25)
[2016-09-16] MEDS: DAKINS SOLUTION FULL STRENGTH TOP SCH (09:20)
[2016-09-16] MEDS: NYSTATIN POWDER TOP SCH ×2 (09:20→20:25)
[2016-09-16] MEDS: PATIENT'S HOME MEDICATION EXT SCH (09:20)
[2016-09-16] MEDS: ZyrTEC TAB 10 MG PO SCH (20:22)
[2016-09-16] MEDS: CELEXA PO SCH (20:22)
[2016-09-17] MEDS: LYRICA CAP 50 MG PO SCH ×3 (05:39→21:32)
[2016-09-17] MEDS: SINEMET (PLAIN) 25/100 MG PO SCH ×3 (05:39→21:32)
[2016-09-17 06:12] LABS: BASOPHILS # (AUTO) 0.1 X10^3/uL (0.0-0.1); BASOPHILS % (AUTO) 1.4 % (0.2-1.0); EOSINOPHILS # (AUTO) 0.3 x10^3/uL (0.0-0.2); EOSINOPHILS % (AUTO) 7.4 % (0.9-2.9); HEMOGLOBIN 10.5 g/dL (12.0-16.0); LYMPHOCYTES # (AUTO) 0.9 X10^3/uL (1.3-2.9); LYMPHOCYTES % (AUTO) 24.9 % (21.0-51.0); MEAN CORPUSCULAR HEMOGLOBIN 31.3 pg (27.0-34.0); MEAN CORPUSCULAR VOLUME 92.2 fL (80.0-100.0); MEAN PLATELET VOLUME 7.9 fL (7.4-11.0); MONOCYTES # (AUTO) 0.5 x10^3/uL (0.3-0.8); MONOCYTES % (AUTO) 12.4 % (0.0-13.0); NEUTROPHILS % (AUTO) 53.9 % (42.0-75.0); PLATELET COUNT 26 X10^3/uL (150.0-450.0); RED BLOOD COUNT 3.37 X10^6/uL (3.5-5.4); RED CELL DISTRIBUTION WIDTH 15.8 % (11.6-16.5); WHITE BLOOD COUNT 3.7 X10^3/uL (3.6-10.0)
[2016-09-17] MEDS: SYNTHROID 150 mcg TAB PO SCH (06:17)
[2016-09-17 06:29] LABS: ALANINE AMINOTRANSFERASE 15 Units/L (12-78); ALBUMIN 2.6 g/dL (3.4-5.0); ALKALINE PHOSPHATASE 52 Units/L (46-116); ASPARTATE AMINO TRANSFERASE 20 Units/L (15-37); BLOOD UREA NITROGEN 13 mg/dL (7-18); CALCIUM 8.3 mg/dL (8.5-10.1); CARBON DIOXIDE 30.5 mmol/L (21-32); CHLORIDE 102 mmol/L (98-107); COR CA(FOR HYPOALB) 9.4 mg/dL (8.5-10.1); CREATININE 0.77 mg/dL (0.55-1.02); GLUCOSE 103 mg/dL (65-99); SODIUM 136 mmol/L (136-145); TOTAL PROTEIN 6.3 g/dL (6.4-8.2); eGFR BLACK RACES > 60 (>60); eGFR NON BLACK RACES > 60 (>60)
[2016-09-17 07:11] LABS: BAND NEUTROPHILS % 2 % (0-10); PLATELET MORPHOLOGY COMMENT NORMAL (NORMAL)
[2016-09-17] MEDS: ASTELIN NASAL SPRAY ENOSTRIL SCH ×2 (09:13→21:34)
[2016-09-17] MEDS: HYDROCHLOROTHIAZIDE 12.5 MG CAP PO SCH (09:15)
[2016-09-17] MEDS: COZAAR PO SCH (09:16)
[2016-09-17] MEDS: VITAMIN C PO SCH (09:16)
[2016-09-17] MEDS: WELCHOL PO SCH ×2 (09:16→21:32)
[2016-09-17] MEDS: MICRO K EXTEN CAP 10 MEQ PO SCH ×2 (09:16→21:32)
[2016-09-17] MEDS: ZINC SULFATE PO SCH (09:16)
[2016-09-17] MEDS: TAB-A-VITE PO SCH (09:16)
[2016-09-17] MEDS: DAKINS SOLUTION FULL STRENGTH TOP SCH (09:17)
[2016-09-17] MEDS: NYSTATIN POWDER TOP SCH ×2 (09:17→21:34)
[2016-09-17] MEDS: PATIENT'S HOME MEDICATION EXT SCH (09:18)
[2016-09-17] MEDS: ZyrTEC TAB 10 MG PO SCH (21:32)
[2016-09-17] MEDS: CELEXA PO SCH (21:32)
[2016-09-18] MEDS: SINEMET (PLAIN) 25/100 MG PO SCH ×3 (05:48→21:29)
[2016-09-18] MEDS: LYRICA CAP 50 MG PO SCH ×3 (05:48→21:29)
[2016-09-18] MEDS: SYNTHROID 150 mcg TAB PO SCH (07:05)
[2016-09-18] MEDS: ZINC SULFATE PO SCH (08:22)
[2016-09-18] MEDS: VITAMIN C PO SCH (08:22)
[2016-09-18] MEDS: COZAAR PO SCH (08:22)
[2016-09-18] MEDS: WELCHOL PO SCH ×2 (08:22→21:28)
[2016-09-18] MEDS: HYDROCHLOROTHIAZIDE 12.5 MG CAP PO SCH (08:23)
[2016-09-18] MEDS: MICRO K EXTEN CAP 10 MEQ PO SCH ×2 (08:23→21:28)
[2016-09-18] MEDS: TAB-A-VITE PO SCH (08:29)
[2016-09-18] MEDS: DAKINS SOLUTION FULL STRENGTH TOP SCH (08:40)
[2016-09-18] MEDS: ASTELIN NASAL SPRAY ENOSTRIL SCH ×2 (08:40→21:29)
[2016-09-18] MEDS: PATIENT'S HOME MEDICATION EXT SCH (08:41)
[2016-09-18] MEDS: NYSTATIN POWDER TOP SCH ×2 (08:41→21:29)
[2016-09-18] MEDS: CELEXA PO SCH (21:29)
[2016-09-18] MEDS: ZyrTEC TAB 10 MG PO SCH (21:29)
[2016-09-19] MEDS: SINEMET (PLAIN) 25/100 MG PO SCH ×3 (05:43→21:28)
[2016-09-19] MEDS: LYRICA CAP 50 MG PO SCH ×3 (05:43→21:27)
[2016-09-19 05:47] LABS: ALANINE AMINOTRANSFERASE 14 Units/L (12-78); ALBUMIN 2.8 g/dL (3.4-5.0); ALKALINE PHOSPHATASE 58 Units/L (46-116); ASPARTATE AMINO TRANSFERASE 21 Units/L (15-37); BLOOD UREA NITROGEN 12 mg/dL (7-18); CARBON DIOXIDE 30.4 mmol/L (21-32); CHLORIDE 98 mmol/L (98-107); COR NA(FOR HYPERGLY) 135 mmol/L (136-145); CREATININE 0.72 mg/dL (0.55-1.02); GLUCOSE 124 mg/dL (65-99); SODIUM 134 mmol/L (136-145); TOTAL PROTEIN 6.7 g/dL (6.4-8.2); eGFR BLACK RACES > 60 (>60); eGFR NON BLACK RACES > 60 (>60)
[2016-09-19 06:15] LABS: BASOPHILS # (AUTO) 0.1 X10^3/uL (0.0-0.1); BASOPHILS % (AUTO) 2.1 % (0.2-1.0); EOSINOPHILS # (AUTO) 0.4 x10^3/uL (0.0-0.2); EOSINOPHILS % (AUTO) 9.7 % (0.9-2.9); HEMATOCRIT 31.4 % (36.0-47.0); HEMOGLOBIN 10.7 g/dL (12.0-16.0); LYMPHOCYTES # (AUTO) 0.9 X10^3/uL (1.3-2.9); LYMPHOCYTES % (AUTO) 19.2 % (21.0-51.0); MEAN CORPUSCULAR HEMOGLOBIN 31.3 pg (27.0-34.0); MEAN CORPUSCULAR HGB CONC 34.2 g/dL (33.0-35.0); MEAN CORPUSCULAR VOLUME 91.4 fL (80.0-100.0); MONOCYTES # (AUTO) 0.8 x10^3/uL (0.3-0.8); MONOCYTES % (AUTO) 18.1 % (0.0-13.0); NEUTROPHILS # (AUTO) 2.4 x10^3/uL (2.2-4.8); NEUTROPHILS % (AUTO) 50.9 % (42.0-75.0); PLATELET COUNT 239 X10^3/uL (150.0-450.0); RED BLOOD COUNT 3.44 X10^6/uL (3.5-5.4); RED CELL DISTRIBUTION WIDTH 15.8 % (11.6-16.5); WHITE BLOOD COUNT 4.6 X10^3/uL (3.6-10.0)
[2016-09-19 06:56] LABS: BAND NEUTROPHILS % 2 % (0-10)
[2016-09-19 06:57] LABS: PLATELET MORPHOLOGY COMMENT NORMAL (NORMAL)
--- NOTE | 2016-09-19 07:10 | RAD ---
HISTORY: Shortness of breath Study: Chest one view Comparison: August 30, 2016 Findings: There is a port present on the right. The heart is enlarged. No congestive heart failure is noted. N o acute alveolar infiltrates or pleural effusions are identified. The bony thorax is unremarkable wi th the exception of bilateral glenohumeral joint degenerative joint disease and bilateral chronic ro tator cuff disease. IMPRESSION: Cardiomegaly without congestive heart failure No definite infiltrates Reported By:
[2016-09-19] MEDS: MICRO K EXTEN CAP 10 MEQ PO SCH ×2 (08:24→21:27)
[2016-09-19] MEDS: TAB-A-VITE PO SCH (08:24)
[2016-09-19] MEDS: HYDROCHLOROTHIAZIDE 12.5 MG CAP PO SCH (08:24)
[2016-09-19] MEDS: WELCHOL PO SCH ×2 (08:24→21:27)
[2016-09-19] MEDS: VITAMIN C PO SCH (08:24)
[2016-09-19] MEDS: ZINC SULFATE PO SCH (08:24)
[2016-09-19] MEDS: COZAAR PO SCH (08:25)
[2016-09-19] MEDS: SYNTHROID 150 mcg TAB PO SCH (08:28)
[2016-09-19] MEDS: DAKINS SOLUTION FULL STRENGTH TOP SCH (08:51)
[2016-09-19] MEDS: NYSTATIN POWDER TOP SCH ×2 (08:51→21:29)
[2016-09-19] MEDS: PATIENT'S HOME MEDICATION EXT SCH (08:51)
[2016-09-19] MEDS: ASTELIN NASAL SPRAY ENOSTRIL SCH ×2 (08:51→21:29)
[2016-09-19] MEDS: CELEXA PO SCH (21:26)
[2016-09-19] MEDS: ZyrTEC TAB 10 MG PO SCH (21:27)
[2016-09-20] MEDS: LYRICA CAP 50 MG PO SCH ×2 (05:56→13:49)
[2016-09-20] MEDS: SYNTHROID 150 mcg TAB PO SCH (06:01)
[2016-09-20] MEDS: SINEMET (PLAIN) 25/100 MG PO SCH ×2 (06:01→13:49)
[2016-09-20 08:12] VITALS: BP 127/78
[2016-09-20] MEDS: DAKINS SOLUTION FULL STRENGTH TOP SCH (09:00)
[2016-09-20] MEDS: WELCHOL PO SCH (09:04)
[2016-09-20] MEDS: ZINC SULFATE PO SCH (09:04)
[2016-09-20] MEDS: COZAAR PO SCH (09:04)
[2016-09-20] MEDS: TAB-A-VITE PO SCH (09:04)
[2016-09-20] MEDS: MICRO K EXTEN CAP 10 MEQ PO SCH (09:04)
[2016-09-20] MEDS: HYDROCHLOROTHIAZIDE 12.5 MG CAP PO SCH (09:04)
[2016-09-20] MEDS: VITAMIN C PO SCH (09:05)
[2016-09-20] MEDS: NYSTATIN POWDER TOP SCH (09:05)
[2016-09-20] MEDS: ASTELIN NASAL SPRAY ENOSTRIL SCH (09:05)
[2016-09-20] MEDS: PATIENT'S HOME MEDICATION EXT SCH (13:51)
== END 2016-09-20 16:38 | disposition home health service (06) | DRG 949 ==
LOC: MED/SURG 15:20
PROVIDERS: ADMIT Obstetrics & Gynecology Obstetrics; ATTEND Obstetrics & Gynecology Obstetrics
DX: Z51.89 Encounter for other specified aftercare (principal); R26.89 Other abnormalities of gait and mobility; C76.1 Malignant neoplasm of thorax; M54.2 Cervicalgia; M79.602 Pain in left arm; M25.512 Pain in left shoulder; R06.02 Shortness of breath; R79.1 Abnormal coagulation profile; D64.89 Other specified anemias; E03.8 Other specified hypothyroidism; N39.0 Urinary tract infection, site not specified; Z85.3 Personal history of malignant neoplasm of breast
CPT/HCPCS: 36415; 71010; 80053; 85025; 97535; 99231

== ENCOUNTER 2016-09-23 21:17 | Observation (INO) | payer OTHER, MEDICAID ==
[2016-09-23] MEDS ORDERED: PROVENTIL NEB TX 0.083% 2.5MG/ 3ML ONE (21:58)
[2016-09-23] MEDS ORDERED: SOLU-Medrol 125 MG VIAL IVP ONE (21:59)
[2016-09-23] MEDS ORDERED: SOLU-Medrol 125 MG VIAL ONE (22:07)
--- NOTE | 2016-09-23 22:29 | RAD ---
Chest AP portable Indication: Dyspnea. Comparison: September 19, 2016. Findings: There is cardiomegaly and hyperinflation with right yayo cath tip over the SVC. There is no pneumothorax, effusion or dense consolidation. No overt edema seen. Impression: Cardiomegaly and chronic lung changes, without new acute chest process. Followup with PA and lateral chest as needed for increased sensitivity. Reported By:
[2016-09-23 22:30] LABS: BASOPHILS # (AUTO) 0.1 X10^3/uL (0.0-0.1); BASOPHILS % (AUTO) 1.4 % (0.2-1.0); EOSINOPHILS # (AUTO) 0.3 x10^3/uL (0.0-0.2); EOSINOPHILS % (AUTO) 4.3 % (0.9-2.9); HEMATOCRIT 28.9 % (36.0-47.0); HEMOGLOBIN 9.7 g/dL (12.0-16.0); LYMPHOCYTES # (AUTO) 0.8 X10^3/uL (1.3-2.9); LYMPHOCYTES % (AUTO) 13.6 % (21.0-51.0); MEAN CORPUSCULAR HGB CONC 33.5 g/dL (33.0-35.0); MEAN CORPUSCULAR VOLUME 92.5 fL (80.0-100.0); MEAN PLATELET VOLUME 8.2 fL (7.4-11.0); MONOCYTES # (AUTO) 0.9 x10^3/uL (0.3-0.8); MONOCYTES % (AUTO) 14.5 % (0.0-13.0); NEUTROPHILS % (AUTO) 66.2 % (42.0-75.0); PLATELET COUNT 207 X10^3/uL (150.0-450.0); RED BLOOD COUNT 3.13 X10^6/uL (3.5-5.4); RED CELL DISTRIBUTION WIDTH 16.3 % (11.6-16.5); WHITE BLOOD COUNT 6.1 X10^3/uL (3.6-10.0)
[2016-09-23 22:48] LABS: B-TYPE NATRIURETIC PEPTIDE 148 pg/mL (0-79)
[2016-09-23 22:55] LABS: ALANINE AMINOTRANSFERASE 20 Units/L (12-78); ALBUMIN 3.3 g/dL (3.4-5.0); ALKALINE PHOSPHATASE 72 Units/L (46-116); ASPARTATE AMINO TRANSFERASE 20 Units/L (15-37); BLOOD UREA NITROGEN 28 mg/dL (7-18); CALCIUM 8.7 mg/dL (8.5-10.1); CARBON DIOXIDE 29.6 mmol/L (21-32); CHLORIDE 95 mmol/L (98-107); CKMB % 0.4 % (<4); COR CA(FOR HYPOALB) 9.3 mg/dL (8.5-10.1); COR NA(FOR HYPERGLY) 130 mmol/L (136-145); CREATINE KINASE 311 Units/L (26-192); CREATINE KINASE MB 1.2 ng/mL (0-4.0); GLUCOSE 130 mg/dL (65-99); SODIUM 129 mmol/L (136-145); TOTAL PROTEIN 7.3 g/dL (6.4-8.2); TROPONIN I < 0.02 ng/mL (0-1.5); eGFR BLACK RACES > 60 (>60); eGFR NON BLACK RACES 55 (>60)
--- NOTE | 2016-09-23 23:42 | DR.SOBA ---
HPI - Time Seen Time seen: 21:45 - Primary Care Physician Primary Care Physician: JUDIE LOFTON - HPI Comment HPI Comment: PATIENT WAS IN HOSPITAL AND WENT HOME 4 TO 5 DAYS AGO. SHE HAD CHEST PAIN WITH HEMORRHAGE LEFT CHEST WALL. NO FEVER. COUGH PRODUCTIVE, YELLOW SPUTUM. - Complaints Chief Complaint Doctors Comments: INCREASING SOB THAT GOT WORSE YESTERDAY. PATIENT UNABLE TO STAND SYMTOMS TONIGHT. RECENT BREAST BIOPSY. Chief Complaint:: "I was just gave out and couldn't make it any further" - Reviewed Nurses Notes Reviewed: Yes - Source History Provided: Patient, Family Member, EMS - Mode of Arrival Mode of Arrival: EMS - Timing Onset of Chief Complaint: 09/23/16 - Duration Duration: Days - Context Onset:: At Rest PE Risk Factors:: Recent Surgery (BREAST BIOPSY.) History of:: None Prehospital Care:: None - Modifying Factors Worsens:: Nothing Improves:: Nothing - Associated Signs and Symptoms Associated Signs and Symptoms: Wheeze, Cough - If Chest Pain Quality: Pressure like, Heavy Location: Left Upper Chest, Left Lower Chest, Chest Wall - If Cough Cough: Nonproductive, Yellow PMH - PMH Past Medical History: Yes Past Medical History: Arthritis, Depression, Dyslipidemia, Hypertension, Hypothyroidism Past Surgical History: Yes Surgical History: Hysterectomy, Mastectomy - Family History History of Family Medical Conditions: Yes Family Medical History: Hypertension - Social History Does patient currently use any type of tobacco product: No Have you used tobacco products in the last 12 months: No Type of Tobacco Use: None Does any household member use tobacco: No Alcohol Use: None Do you use any recreational Drugs:: No Lives With: Family Lives Where: Home - infectious screening In the last 2 months have you had wt loss of >10#?: NO Have you had fever, night sweats or hemotysis?: No Have you traveled outside the country in the last 6 months?: No Isolation: Standard ROS - Review of Systems Constitutional: Weakness, Fatigue, Loss of Appetite. negative: Chills, Diaphoresis, Fever Eyes: No Symptoms Reported. negative: Eye Pain, Blurred Vision, Discharge, Photophobia, Diplopia ENTM: No Symptoms Reported. negative: Ear Pain, Nose Discharge, Nose Congestion , Throat Pain Respiratoy: Productive Cough, Short of Breath, Wheezing. negative: Hemoptysis Cardiovascular: Chest Pain, Edema (TRACE) Gastrointestinal/Abdominal: No Symptoms Reported. negative: Abdominal Pain, Diarrhea, Nausea, Vomiting Genitourinary: negative: Dysuria, Hematuria Neurological: Headache, Weakness, Dizziness Musculoskeletal: Joint Pain, Muscle Pain Integumentary: Dryness Hematologic/Lymphatic: Easy Bruising Endocrine: No Symptoms Reported All Other Systems: Reviewed and Negative PE - Vital Signs Vitals: Temperature 97.5 F Pulse Rate 61 Respiratory Rate 17 Blood Pressure [Right Calf] 123/72 Blood Pressure [Left Calf] 131/59 Blood Pressure [Right Thigh] 109/58 Blood Pressure [Right Arm] 127/78 Blood Pressure 166/77 O2 Sat by Pulse Oximetry 100 - General Limitations: Other (SOB CAUSE SHRT ANSWERS TO QUESTIONS.) General Appearance: Alert, Anxious, In Distress - Head Head Exam: Normal Inspection - Eyes Eye exam: Normal Appearance, PERRL, EOMI. negative: Scleral Icterus, Conjunctival Injection - ENT ENT Exam: Normal External Ear Exam - Neck Neck Exam: Normal Inspection - Chest Chest Inspection: Symmetric Chest Wall Rise - Respiratory Respiratory Exam: Chest Wall Tenderness (LEFT CHEST), Respiratory Distress Respiratory Exam: Bilateral Wheezing, Bilateral Rhonchi, Upper Wheezing, Upper Rhonchi, Lower Wheezing, Lower Rhonchi - Cardiovascular Cardiovascular Exam: Irregular Rhythm - Abdominal Exam Abdominal Exam: Normal Bowel Sounds, Soft. negative: Tenderness - Extremities Extremities Exam: Edema (TRACE EDEMA) - Back Back Exam: Paraspinal Tenderness - Neurologic Neurological Exam: Alert, Oriented X3 - Psychiatric Psychiatric Exam: Anxious - Skin Skin Exam: Dry MDM - Additional Information Obtained Additional Information Obtained From: Family - Differential Diagnosis Differential Diagnosis: Bronchitis, CHF, COPD, Dysrhythmia, Hyponatremia, Mycardial Infarction, Pneumonia, Pneumothorax, Pulmonary embolism, Respiratory Failure, URI Course - Treatment Treatment: SEE ORDERS. CONTINOUS NEB AND IV SOLUMEDROL. PATIENT FEELING BETTER. - Consultation Consultation Comments: DISCUSS PATIENT WITH DR. MURRIETA. HE WILL ADMIT PATIENT. - Education/Counseling Education/Counseling: Patient, Family, Education Educated On: Treatment, Diagnosis ROR - Labs Reviewed Laboratory Results Reviewed?: Yes Result Diagrams: 09/23/16 22:05 09/23/16 22:05 Laboratory: WBC 6.1 X10^3/uL (3.6-10.0) 09/23/16 22:05 RBC 3.13 X10^6/uL (3.5-5.4) L 09/23/16 22:05 Hgb 9.7 g/dL (12.0-16.0) L 09/23/16 22:05 Hct 28.9 % (36.0-47.0) L 09/23/16 22:05 MCV 92.5 fL (80.0-100.0) 09/23/16 22:05 MCH 31.0 pg (27.0-34.0) 09/23/16 22:05 MCHC 33.5 g/dL (33.0-35.0) 09/23/16 22:05 RDW 16.3 % (11.6-16.5) 09/23/16 22:05 Plt Count 207 X10^3/uL (150.0-450.0) 09/23/16 22:05 MPV 8.2 fL (7.4-11.0) 09/23/16 22:05 Neut % 66.2 % (42.0-75.0) 09/23/16 22:05 Lymph % 13.6 % (21.0-51.0) L 09/23/16 22:05 [place] % 14.5 % (0.0-13.0) H 09/23/16 22:05 Eos % 4.3 % (0.9-2.9) H 09/23/16 22:05 Baso % 1.4 % (0.2-1.0) H 09/23/16 22:05 Neut # 4.0 x10^3/uL (2.2-4.8) 09/23/16 22:05 Lymph # 0.8 X10^3/uL (1.3-2.9) L 09/23/16 22:05 [place] # 0.9 x10^3/uL (0.3-0.8) H 09/23/16 22:05 Eos # 0.3 x10^3/uL (0.0-0.2) H 09/23/16 22:05 Baso # 0.1 X10^3/uL (0.0-0.1) 09/23/16 22:05 Absolute Nucleated RBC 0.1 /100WBC 09/23/16 22:05 INR Target Range - 09/23/16 22:08 INR 1.39 (0.8-1.3) H 09/23/16 22:08 PTT 29.4 SECONDS (22.9-36.5) 09/23/16 22:08 PTT Comment - 09/23/16 22:08 Sodium 129 mmol/L (136-145) L 09/23/16 22:05 Corrected Sodium 130 mmol/L (136-145) L 09/23/16 22:05 Potassium 5.1 mmol/L (3.5-5.1) 09/23/16 22:05 Chloride 95 mmol/L (98-107) L 09/23/16 22:05 Carbon Dioxide 29.6 mmol/L (21-32) 09/23/16 22:05 BUN 28 mg/dL (7-18) H 09/23/16 22:05 Creatinine 1.00 mg/dL (0.55-1.02) 09/23/16 22:05 Est GFR (MDRD) Af Amer > 60 (>60) 09/23/16 22:05 Est GFR (MDRD) Non-Af 55 (>60) L 09/23/16 22:05 Glucose 130 mg/dL (65-99) H 09/23/16 22:05 Calcium 8.7 mg/dL (8.5-10.1) 09/23/16 22:05 Corrected Calcium 9.3 mg/dL (8.5-10.1) 09/23/16 22:05 Total Bilirubin 0.60 mg/dL (0.2-1.0) 09/23/16 22:05 AST 20 Units/L (15-37) 09/23/16 22:05 ALT 20 Units/L (12-78) 09/23/16 22:05 Alkaline Phosphatase 72 Units/L (46-116) 09/23/16 22:05 Creatine Kinase 311 Units/L (26-192) H 09/23/16 22:05 CK-MB (CK-2) 1.2 ng/mL (0-4.0) 09/23/16 22:05 CK/CKMB % Calc 0.4 % (<4) 09/23/16 22:05 Troponin I < 0.02 ng/mL (0-1.5) 09/23/16 22:05 B-Natriuretic Peptide 148 pg/mL (0-79) H 09/23/16 22:05 Total Protein 7.3 g/dL (6.4-8.2) 09/23/16 22:05 Albumin 3.3 g/dL (3.4-5.0) L 09/23/16 22:05 Globulin 4.0 g/dL (2.5-4.5) 09/23/16 22:05 Albumin/Globulin Ratio 0.8 Ratio (1.1-2.1) L 09/23/16 22:05 - XRAY XRAY Interpreted by: Radiologist XRAY Findings: report discuss with patient and her son. - EKG Rhythm: Afib (control rate. ekg noted.) - Diagnosis Discharge Problem: Acute respiratory distress, Bronchitis Chest pain Qualifiers: Chest pain type: unspecified Qualified Code(s): R07.9 - Chest pain, unspecified - Discharge Plan Condition: Stable - Follow ups/Referrals - Instructions
[2016-09-24] MEDS ORDERED: FORTAZ or TAZICEF INJ 1 GM in NS 50 ML IV + SPIKE MINIBAG* 50 ML IV ONE (00:12)
[2016-09-24] MEDS ORDERED: FORTAZ or TAZICEF INJ ONE ×2 (00:33→05:15)
[2016-09-24] MEDS ORDERED: NS 50 ML IV + SPIKE MINIBAG* 50 ML IV ONE ×2 (00:33→05:14)
[2016-09-24] MEDS: DUONEB 0.5 MG/3 MG NEB SCH ×6 (00:40→20:30)
[2016-09-24] MEDS: NS 1000 ML 1,000 ML IV SCH ×2 (00:41→14:01)
[2016-09-24] MEDS ORDERED: NYSTATIN POWDER ONE (02:02)
[2016-09-24] MEDS ORDERED: LANTISEPTIC ONE (02:13)
[2016-09-24 02:41] VITALS: BMI 42.0
[2016-09-24] MEDS: NYSTATIN POWDER TOP PRN (03:11)
[2016-09-24] MEDS: LANTISEPTIC TOP PRN (03:11)
[2016-09-24 03:59] LABS: BILIRUBIN,URINE NEGATIVE (NEGATIVE); BLOOD/HEMOGLOBIN,URINE 1+ (NEGATIVE); GLUCOSE, URINE NEGATIVE (NEGATIVE); KETONES,URINE NEGATIVE (NEGATIVE); LEUKOCYTE ESTERASE ,URINE 1+ (NEGATIVE); NITRITES,URINE POSITIVE (NEGATIVE); PH,URINE 6.5 (5.0 - 8.0); PROTEIN,URINE 2+ (NEGATIVE); UROBILINOGEN,URINE NORMAL (NORMAL)
[2016-09-24 04:14] LABS: APPEARANCE,URINE SLIGHTLY HAZY (CLEAR); COLOR,URINE YELLOW (YELLOW); SQUAMOUS EPITHELIAL CELL,UR RARE /HPF (NEGATIVE)
[2016-09-24 04:15] LABS: BACTERIA,URINE 1+ /HPF (NEGATIVE)
[2016-09-24 04:59] LABS: BASOPHILS % (AUTO) 0.4 % (0.2-1.0); EOSINOPHILS % (AUTO) 0.1 % (0.9-2.9); HEMATOCRIT 34.5 % (36.0-47.0); HEMOGLOBIN 11.6 g/dL (12.0-16.0); LYMPHOCYTES # (AUTO) 0.4 X10^3/uL (1.3-2.9); LYMPHOCYTES % (AUTO) 6.1 % (21.0-51.0); MEAN CORPUSCULAR HGB CONC 33.8 g/dL (33.0-35.0); MEAN CORPUSCULAR VOLUME 91.8 fL (80.0-100.0); MEAN PLATELET VOLUME 7.8 fL (7.4-11.0); MONOCYTES # (AUTO) 0.1 x10^3/uL (0.3-0.8); MONOCYTES % (AUTO) 1.9 % (0.0-13.0); NEUTROPHILS # (AUTO) 5.7 x10^3/uL (2.2-4.8); NEUTROPHILS % (AUTO) 91.5 % (42.0-75.0); PLATELET COUNT 238 X10^3/uL (150.0-450.0); RED BLOOD COUNT 3.75 X10^6/uL (3.5-5.4); RED CELL DISTRIBUTION WIDTH 16.2 % (11.6-16.5); WHITE BLOOD COUNT 6.2 X10^3/uL (3.6-10.0)
[2016-09-24 05:09] LABS: ALANINE AMINOTRANSFERASE 22 Units/L (12-78); ALBUMIN 3.2 g/dL (3.4-5.0); ALKALINE PHOSPHATASE 66 Units/L (46-116); ASPARTATE AMINO TRANSFERASE 19 Units/L (15-37); BLOOD UREA NITROGEN 28 mg/dL (7-18); CALCIUM 8.3 mg/dL (8.5-10.1); CARBON DIOXIDE 27.2 mmol/L (21-32); CHLORIDE 96 mmol/L (98-107); CKMB % 0.5 % (<4); COR CA(FOR HYPOALB) 8.9 mg/dL (8.5-10.1); COR NA(FOR HYPERGLY) 132 mmol/L (136-145); CREATINE KINASE 291 Units/L (26-192); CREATINE KINASE MB 1.3 ng/mL (0-4.0); CREATININE 1.05 mg/dL (0.55-1.02); GLUCOSE 198 mg/dL (65-99); SODIUM 130 mmol/L (136-145); TOTAL PROTEIN 7.2 g/dL (6.4-8.2); TROPONIN I < 0.02 ng/mL (0-1.5); eGFR BLACK RACES > 60 (>60); eGFR NON BLACK RACES 52 (>60)
[2016-09-24] MEDS: FORTAZ or TAZICEF INJ 1 GM in NS 50 ML IV + SPIKE MINIBAG* 50 ML IV SCH ×3 (05:19→21:22)
[2016-09-24 05:51] LABS: BAND NEUTROPHILS % 6 % (0-10); PLATELET MORPHOLOGY COMMENT NORMAL (NORMAL)
[2016-09-24] MEDS: SOLU-Medrol 40 MG VIAL IVP SCH ×2 (08:45→20:30)
[2016-09-24] MEDS ORDERED: BUTT CREAM (COMPOUND) ONE (09:35)
[2016-09-24] MEDS: BUTT CREAM (COMPOUND) TOP PRN (09:41)
[2016-09-24 11:18] LABS: CKMB % 0.4 % (<4); CREATINE KINASE 289 Units/L (26-192); TROPONIN I < 0.02 ng/mL (0-1.5)
--- NOTE | 2016-09-24 18:02 | PCM.PROG ---
Progress Note - Progress Note for Day of Date: 09/24/16 - Subjective Subjective: SOB, INCREASE LETHARGY, IRREGULAR HEART R/R. 89 WF ADMITTED ON SATURDAY FROM ER AFTER PRESENTING WITH CO SOB AND THICK YELLOW SPUTUM PER FAMILY. PT WAS D/C ONE WEEK AGO FROM SWING BED STATUS, PT IS CHRONICALLY ILL, ON BEARING GRINDER ANTICOAG THERAPY. - Past Medical Family Social History Past Med/Fam/Surg Hx: No changes since H&P Allergies: Allergies clindamycin Allergy (Intermediate, Verified 08/31/16 13:09) RASH Sulfa (Sulfonamide Antibiotics) Allergy (Verified 08/31/16 13:11) - Review of Systems ROS: No change since H&P - Vital Signs and I&O's Vital Signs: Temperature 97.1 F Pulse Rate [Apical] 79 Pulse Rate [Left Radial] 51 Pulse Rate 61 Respiratory Rate 14 Blood Pressure [Right Arm] 156/62 O2 Sat by Pulse Oximetry 98 Intake and Output: Intake & Output 09/22/16 09/23/16 09/24/16 09/25/16 11:59 11:59 11:59 11:59 Intake Total 200 1006 Output Total 200 300 Balance 0 706 - Physical Exam Oriented: Person Eyes: Normal Ear: Normal Nose: Normal Throat: Dry Respiratory: Diminished, Wheezes Cardiovascular: Irregular, Edema (+1 EDEMA TO BILATERAL LOWER EXTREMITIES) Auscultation: Bowel Sounds: Normal Tenderness: Normal Skin: Decreased Turgur Musculoskeletal: Back:Lumbar, Motor Deficit (DIFFUSE MUSCLE ATROPHY) Psychiatric: Anxiety Speech Pattern: Clear, Appropriate - Laboratory and Diagnostics Result Diagrams: 09/24/16 04:30 09/24/16 04:30 Labs: Laboratory WBC 6.2 X10^3/uL (3.6-10.0) 09/24/16 04:30 RBC 3.75 X10^6/uL (3.5-5.4) 09/24/16 04:30 Hgb 11.6 g/dL (12.0-16.0) L 09/24/16 04:30 Hct 34.5 % (36.0-47.0) L 09/24/16 04:30 MCV 91.8 fL (80.0-100.0) 09/24/16 04:30 MCH 31.0 pg (27.0-34.0) 09/24/16 04:30 MCHC 33.8 g/dL (33.0-35.0) 09/24/16 04:30 RDW 16.2 % (11.6-16.5) 09/24/16 04:30 Plt Count 238 X10^3/uL (150.0-450.0) 09/24/16 04:30 Plt Count Comment Adequate (ADEQUATE) 09/24/16 04:30 MPV 7.8 fL (7.4-11.0) 09/24/16 04:30 Neut % 91.5 % (42.0-75.0) H 09/24/16 04:30 Lymph % 6.1 % (21.0-51.0) L 09/24/16 04:30 Holmes % 1.9 % (0.0-13.0) 09/24/16 04:30 Eos % 0.1 % (0.9-2.9) L 09/24/16 04:30 Baso % 0.4 % (0.2-1.0) 09/24/16 04:30 Neut # 5.7 x10^3/uL (2.2-4.8) H 09/24/16 04:30 Lymph # 0.4 X10^3/uL (1.3-2.9) L 09/24/16 04:30 Holmes # 0.1 x10^3/uL (0.3-0.8) L 09/24/16 04:30 Eos # 0.0 x10^3/uL (0.0-0.2) 09/24/16 04:30 Baso # 0.0 X10^3/uL (0.0-0.1) 09/24/16 04:30 Absolute Nucleated RBC 0.0 /100WBC 09/24/16 04:30 Total Counted 100 09/24/16 04:30 Neutrophils % (Manual) 90 % (39-76) H 09/24/16 04:30 Band Neutrophils % 6 % (0-10) 09/24/16 04:30 Lymphocytes % (Manual) 2 % (13-43) L 09/24/16 04:30 Monocytes % (Manual) 2 % (4-9) L 09/24/16 04:30 Plt Morphology Comment Normal (NORMAL) 09/24/16 04:30 RBC Morphology Normal (NORMAL) 09/24/16 04:30 INR Target Range - 09/23/16 22:08 INR 1.39 (0.8-1.3) H 09/23/16 22:08 PTT 29.4 SECONDS (22.9-36.5) 09/23/16 22:08 PTT Comment - 09/23/16 22:08 Sodium 130 mmol/L (136-145) L 09/24/16 04:30 Corrected Sodium 132 mmol/L (136-145) L 09/24/16 04:30 Potassium 5.0 mmol/L (3.5-5.1) 09/24/16 04:30 Chloride 96 mmol/L (98-107) L 09/24/16 04:30 Carbon Dioxide 27.2 mmol/L (21-32) 09/24/16 04:30 BUN 28 mg/dL (7-18) H 09/24/16 04:30 Creatinine 1.05 mg/dL (0.55-1.02) H 09/24/16 04:30 Est GFR (MDRD) Af Amer > 60 (>60) 09/24/16 04:30 Est GFR (MDRD) Non-Af 52 (>60) L 09/24/16 04:30 Glucose 198 mg/dL (65-99) H 09/24/16 04:30 Calcium 8.3 mg/dL (8.5-10.1) L 09/24/16 04:30 Corrected Calcium 8.9 mg/dL (8.5-10.1) 09/24/16 04:30 Total Bilirubin 0.60 mg/dL (0.2-1.0) 09/24/16 04:30 AST 19 Units/L (15-37) 09/24/16 04:30 ALT 22 Units/L (12-78) 09/24/16 04:30 Alkaline Phosphatase 66 Units/L (46-116) 09/24/16 04:30 Creatine Kinase 289 Units/L (26-192) H 09/24/16 10:40 CK-MB (CK-2) 1.0 ng/mL (0-4.0) 09/24/16 10:40 CK/CKMB % Calc 0.4 % (<4) 09/24/16 10:40 Troponin I < 0.02 ng/mL (0-1.5) 09/24/16 10:40 B-Natriuretic Peptide 148 pg/mL (0-79) H 09/23/16 22:05 Total Protein 7.2 g/dL (6.4-8.2) 09/24/16 04:30 Albumin 3.2 g/dL (3.4-5.0) L 09/24/16 04:30 Globulin 4.0 g/dL (2.5-4.5) 09/24/16 04:30 Albumin/Globulin Ratio 0.8 Ratio (1.1-2.1) L 09/24/16 04:30 Specimen Type Catherized urine 09/24/16 03:51 Urine Color Yellow (YELLOW) 09/24/16 03:51 Urine Appearance Slightly hazy (CLEAR) 09/24/16 03:51 Urine pH 6.5 (5.0 - 8.0) 09/24/16 03:51 Ur Specific [place] 1.015 (1.000-1.030) 09/24/16 03:51 Urine Protein 2+ (NEGATIVE) 09/24/16 03:51 Urine Glucose (UA) Negative (NEGATIVE) 09/24/16 03:51 Urine Ketones Negative (NEGATIVE) 09/24/16 03:51 Urine Occult Blood 1+ (NEGATIVE) 09/24/16 03:51 Urine Nitrite Positive (NEGATIVE) 09/24/16 03:51 Urine Bilirubin Negative (NEGATIVE) 09/24/16 03:51 Urine Urobilinogen Normal (NORMAL) 09/24/16 03:51 Ur Leukocyte Esterase 1+ (NEGATIVE) 09/24/16 03:51 Urine RBC 10-15 /HPF (NEGATIVE) 09/24/16 03:51 Urine WBC 15-20 /HPF (NEGATIVE) 09/24/16 03:51 Ur Squamous Epith Cells Rare /HPF (NEGATIVE) 09/24/16 03:51 Urine Bacteria 1+ /HPF (NEGATIVE) 09/24/16 03:51 Ur Culture Indicated? Yes/culture set up 09/24/16 03:51 - Plan (1) Acute respiratory distress Status: Acute Plan: CONTINUE SUPPLEMENTAL O2, RESP THERAPY, IV ATBX FOR BRONCHITS, V QLUNG SCAN, CONTINUOUS CARDIAC MONITORING, PT/INR. REPEAT AM LABS (2) Bronchitis Status: Acute (3) Hypothyroidism Status: Acute Qualifiers: Hypothyroidism type: H Plan: RESUME HOME MEDS (4) UTI (urinary tract infection) Status: Acute Qualifiers: Urinary tract infection type: U Hematuria presence: H Indwelling urinary catheter type: I Encounter type: E Plan: CULTURE PENDING, PT CURRENTLY ON FORTAZ (5) Degenerative joint disease of knee, left Status: Chronic Qualifiers: Osteoarthritis type: O Plan: SUPPORTIVE CARE, PT (6) Essential hypertension Status: Chronic (7) History of atrial fibrillation Status: Chronic
[2016-09-24] MEDS: ROBITUSSIN DM PO PRN (23:01)
[2016-09-25] MEDS: DUONEB 0.5 MG/3 MG NEB SCH ×6 (00:58→21:05)
[2016-09-25] MEDS: NS 1000 ML 1,000 ML IV SCH ×2 (04:01→16:13)
[2016-09-25 05:53] LABS: ALANINE AMINOTRANSFERASE 26 Units/L (12-78); ALBUMIN 3.1 g/dL (3.4-5.0); ALKALINE PHOSPHATASE 61 Units/L (46-116); ASPARTATE AMINO TRANSFERASE 22 Units/L (15-37); BLOOD UREA NITROGEN 23 mg/dL (7-18); CALCIUM 8.4 mg/dL (8.5-10.1); CARBON DIOXIDE 24.5 mmol/L (21-32); CHLORIDE 97 mmol/L (98-107); COR CA(FOR HYPOALB) 9.1 mg/dL (8.5-10.1); COR NA(FOR HYPERGLY) 133 mmol/L (136-145); CREATININE 0.96 mg/dL (0.55-1.02); GLUCOSE 182 mg/dL (65-99); SODIUM 131 mmol/L (136-145); TOTAL PROTEIN 7.2 g/dL (6.4-8.2); eGFR BLACK RACES > 60 (>60); eGFR NON BLACK RACES 58 (>60)
[2016-09-25 06:10] LABS: BASOPHILS % (AUTO) 0.1 % (0.2-1.0); HEMATOCRIT 33.4 % (36.0-47.0); HEMOGLOBIN 11.4 g/dL (12.0-16.0); LYMPHOCYTES # (AUTO) 0.5 X10^3/uL (1.3-2.9); LYMPHOCYTES % (AUTO) 6.1 % (21.0-51.0); MEAN CORPUSCULAR HEMOGLOBIN 31.3 pg (27.0-34.0); MEAN CORPUSCULAR VOLUME 92.1 fL (80.0-100.0); MEAN PLATELET VOLUME 8.4 fL (7.4-11.0); MONOCYTES # (AUTO) 0.5 x10^3/uL (0.3-0.8); MONOCYTES % (AUTO) 5.6 % (0.0-13.0); NEUTROPHILS # (AUTO) 7.6 x10^3/uL (2.2-4.8); NEUTROPHILS % (AUTO) 88.2 % (42.0-75.0); PLATELET COUNT 233 X10^3/uL (150.0-450.0); RED BLOOD COUNT 3.63 X10^6/uL (3.5-5.4); RED CELL DISTRIBUTION WIDTH 16.3 % (11.6-16.5); WHITE BLOOD COUNT 8.7 X10^3/uL (3.6-10.0)
[2016-09-25] MEDS: FORTAZ or TAZICEF INJ 1 GM in NS 50 ML IV + SPIKE MINIBAG* 50 ML IV SCH ×3 (06:11→21:15)
[2016-09-25] MEDS: BUTT CREAM (COMPOUND) TOP PRN ×2 (08:45→12:05)
[2016-09-25] MEDS ORDERED: GENTAMICIN TOPICAL CRM EXT PRN (09:40)
[2016-09-25] MEDS ORDERED: CLOTRIMAZOLE EXT PRN (09:40)
[2016-09-25] MEDS ORDERED: BETAMETHASONE EXT PRN (09:40)
[2016-09-25] MEDS ORDERED: TRAMADOL HCL 50 MG PO PRN (09:40)
[2016-09-25] MEDS ORDERED: ZINC 100 MG PO SCH (09:45)
[2016-09-25] MEDS ORDERED: LEVOTHYROXINE SODIUM 150 MCG PO SCH (09:45)
[2016-09-25] MEDS ORDERED: PATIENT'S HOME MEDICATION (Multivit-Min/Fa/Lycopen/Lutein [Centrum Silver Tablet] 1 TAB) PO SCH (09:45)
[2016-09-25] MEDS ORDERED: PATIENT'S HOME MEDICATION (Levocetirizine Dihydrochloride [Xyzal] 5 MG) PO SCH (09:45)
[2016-09-25] MEDS ORDERED: POTASSIUM CHLORIDE 10 MEQ PO SCH (09:45)
[2016-09-25] MEDS ORDERED: LOSARTAN POTASSIUM 100 MG PO SCH (09:45)
[2016-09-25] MEDS ORDERED: PATIENT'S HOME MEDICATION (Pregabalin [Lyrica] 50 MG) PO SCH (09:45)
[2016-09-25] MEDS ORDERED: MORPHINE SULFATE INJ 2 MG ONE (09:47)
[2016-09-25] MEDS ORDERED: LASIX IVP ONE ×2 (09:47→09:48)
[2016-09-25] MEDS ORDERED: MORPHINE SULFATE INJ 2 MG IVP ONE (09:48)
[2016-09-25] MEDS ORDERED: LOTRISONE CREAM 15 G TOP PRN (09:57)
[2016-09-25] MEDS ORDERED: ULTRAM PO PRN (10:01)
--- NOTE | 2016-09-25 11:20 | RAD ---
HISTORY: Shortness of breath Study: Chest one view Comparison: September 23, 2016 Findings: There is a port present on the right. The heart is enlarged. No definite congestive heart failure is identified. The lungs are hyperinflated. No acute alveolar infiltrates or pleural effusions are logan ntified. The bony thorax is unremarkable with the exception of bilateral glenohumeral degenerative j oint disease and bilateral chronic rotator cuff disease. IMPRESSION: Cardiomegaly without congestive heart failure Lungs hyperinflated but free of acute infiltrates Reported By:
--- NOTE | 2016-09-25 11:30 | NM ---
HISTORY: Shortness of breath Study: Ventilation-perfusion lung scan Comparison: None Technique: Ventilation scan was attempted using 30.3 millicuries technetium 99 DTPA aerosol. Perfusi on scan was carried out using intravenous injection of 5.4 millicuries technetium 99 MAA. Findings: Ventilation scan was sub optimal with some precipitation of tracer within the large airways. What ve ntilation did occur was symmetric. Perfusion scan demonstrated no evidence for significant subsegmen saray, segmental, or lobar perfusion defects. The probability of acute pulmonary thromboembolic diseas e is low. IMPRESSION: Low probability acute pulmonary thromboembolic disease Reported By:
[2016-09-25] MEDS: WELCHOL PO SCH ×2 (12:05→21:17)
[2016-09-25] MEDS: VITAMIN C PO SCH (12:05)
[2016-09-25] MEDS: SINEMET (PLAIN) 25/100 MG PO SCH ×3 (12:06→21:18)
[2016-09-25] MEDS: HYDROCHLOROTHIAZIDE 12.5 MG CAP PO SCH (12:06)
[2016-09-25] MEDS: LOPRESSOR TAB 50 MG PO SCH ×2 (12:06→21:18)
[2016-09-25] MEDS: SOLU-Medrol 40 MG VIAL IVP SCH ×2 (12:08→21:15)
[2016-09-25] MEDS: ROBITUSSIN DM PO PRN (12:09)
[2016-09-25] MEDS: LYRICA CAP 50 MG PO SCH ×2 (14:23→21:17)
[2016-09-25] MEDS: NYSTATIN POWDER TOP PRN (14:36)
[2016-09-25] MEDS ORDERED: VISTARIL PO PRN (15:58)
[2016-09-25] MEDS ORDERED: CITALOPRAM HYDROBROMIDE 10 MG PO SCH (21:00)
[2016-09-25] MEDS ORDERED: CELEXA PO SCH (21:00)
[2016-09-25] MEDS ORDERED: COUMADIN TAB 2 MG PO SCH (21:00)
[2016-09-25] MEDS: MICRO K EXTEN CAP 10 MEQ PO SCH (21:18)
[2016-09-25] MEDS: TUSSIONEX PENNKINETIC SUSP PO PRN (21:29)
[2016-09-26] MEDS: DUONEB 0.5 MG/3 MG NEB SCH ×4 (00:36→12:00)
[2016-09-26] MEDS: SINEMET (PLAIN) 25/100 MG PO SCH ×2 (05:27→13:27)
[2016-09-26] MEDS: NS 1000 ML 1,000 ML IV SCH (05:27)
[2016-09-26] MEDS: FORTAZ or TAZICEF INJ 1 GM in NS 50 ML IV + SPIKE MINIBAG* 50 ML IV SCH ×2 (05:28→13:27)
[2016-09-26] MEDS: LYRICA CAP 50 MG PO SCH ×2 (05:28→13:27)
[2016-09-26 05:55] LABS: ALANINE AMINOTRANSFERASE 30 Units/L (12-78); ALBUMIN 3.2 g/dL (3.4-5.0); ALKALINE PHOSPHATASE 62 Units/L (46-116); ASPARTATE AMINO TRANSFERASE 52 Units/L (15-37); BLOOD UREA NITROGEN 25 mg/dL (7-18); CALCIUM 8.9 mg/dL (8.5-10.1); CHLORIDE 99 mmol/L (98-107); COR CA(FOR HYPOALB) 9.5 mg/dL (8.5-10.1); COR NA(FOR HYPERGLY) 135 mmol/L (136-145); CREATININE 0.94 mg/dL (0.55-1.02); GLUCOSE 154 mg/dL (65-99); SODIUM 134 mmol/L (136-145); TOTAL PROTEIN 7.3 g/dL (6.4-8.2); eGFR BLACK RACES > 60 (>60); eGFR NON BLACK RACES 60 (>60)
[2016-09-26 06:11] LABS: BASOPHILS % (AUTO) 0.2 % (0.2-1.0); HEMATOCRIT 34.3 % (36.0-47.0); HEMOGLOBIN 11.6 g/dL (12.0-16.0); LYMPHOCYTES # (AUTO) 0.5 X10^3/uL (1.3-2.9); LYMPHOCYTES % (AUTO) 5.9 % (21.0-51.0); MEAN CORPUSCULAR HEMOGLOBIN 31.1 pg (27.0-34.0); MEAN CORPUSCULAR HGB CONC 33.7 g/dL (33.0-35.0); MEAN CORPUSCULAR VOLUME 92.2 fL (80.0-100.0); MEAN PLATELET VOLUME 8.2 fL (7.4-11.0); MONOCYTES # (AUTO) 0.5 x10^3/uL (0.3-0.8); MONOCYTES % (AUTO) 5.4 % (0.0-13.0); NEUTROPHILS # (AUTO) 8.2 x10^3/uL (2.2-4.8); NEUTROPHILS % (AUTO) 88.5 % (42.0-75.0); PLATELET COUNT 248 X10^3/uL (150.0-450.0); RED BLOOD COUNT 3.72 X10^6/uL (3.5-5.4); RED CELL DISTRIBUTION WIDTH 16.7 % (11.6-16.5); WHITE BLOOD COUNT 9.3 X10^3/uL (3.6-10.0)
[2016-09-26] MEDS ORDERED: SYNTHROID 150 mcg TAB PO SCH (07:00)
[2016-09-26] MEDS: SOLU-Medrol 40 MG VIAL IVP SCH (08:26)
[2016-09-26] MEDS: WELCHOL PO SCH (08:28)
[2016-09-26] MEDS: VITAMIN C PO SCH (08:28)
[2016-09-26] MEDS: MICRO K EXTEN CAP 10 MEQ PO SCH (08:29)
[2016-09-26] MEDS: HYDROCHLOROTHIAZIDE 12.5 MG CAP PO SCH (08:29)
[2016-09-26] MEDS: LOPRESSOR TAB 50 MG PO SCH (08:30)
[2016-09-26] MEDS: LANTISEPTIC TOP PRN (08:55)
[2016-09-26] MEDS: BUTT CREAM (COMPOUND) TOP PRN (08:55)
[2016-09-26] MEDS: NYSTATIN POWDER TOP PRN (08:56)
[2016-09-26] MEDS ORDERED: ZINC SULFATE PO SCH (09:00)
[2016-09-26] MEDS ORDERED: COZAAR PO SCH (09:00)
[2016-09-26] MEDS ORDERED: TAB-A-VITE PO SCH (09:00)
[2016-09-26] MEDS: TUSSIONEX PENNKINETIC SUSP PO PRN (10:56)
[2016-09-26 12:13] VITALS: BP 162/95
--- NOTE | 2016-09-26 14:02 | DR.H&P ---
H&P - Allergies Allergies/Adverse Reactions: Allergies Allergy/AdvReac Type Severity Reaction Status Date / Time clindamycin Allergy Intermediate RASH Verified 08/31/16 13:09 Sulfa (Sulfonamide Allergy Verified 08/31/16 13:11 Antibiotics) - Past Medical History Past Medical History: Arthritis, Depression, Dyslipidemia, Hypertension, Hypothyroidism Additional Medical History: Parkinson's, Atrial Fibrillation - Past Surgical History Surgical History: Hysterectomy, Mastectomy Additional Surgical History: Hernia Repair, Left Mastectomy, toe surgery - Family History Family Medical History: Hypertension - Social History Does patient currently use any type of tobacco product: No Have you used tobacco products in the last 12 months: No Type of Tobacco Use: None Does any household member use tobacco: No Alcohol Use: None Drug Use: None - Physical Exam Vital Signs: Temperature 97.5 F Pulse Rate [Apical] 72 Pulse Rate [Left Radial] 51 Pulse Rate 76 Respiratory Rate 17 Blood Pressure [Right Arm] 162/95 O2 Sat by Pulse Oximetry 94 Oriented: Person
== END 2016-09-26 14:45 ==
LOC: ER 21:17 → ICU 09-24 00:15
PROVIDERS: ADMIT Internal Medicine; ATTEND Internal Medicine
DX: R06.00 Dyspnea, unspecified (principal); R07.89 Other chest pain; J20.8 Acute bronchitis due to other specified organisms; R94.31 Abnormal electrocardiogram [ECG] [EKG]; D64.89 Other specified anemias; E87.1 Hypo-osmolality and hyponatremia; E11.65 Type 2 diabetes mellitus with hyperglycemia; N39.0 Urinary tract infection, site not specified; B96.5 Pseudomonas (aeruginosa) (mallei) (pseudomallei) as the cause of diseases classified elsewhere; R06.02 Shortness of breath; Z79.01 Long term (current) use of anticoagulants; R60.0 Localized edema; E03.8 Other specified hypothyroidism; I10 Essential (primary) hypertension; Z87.898 Personal history of other specified conditions; I51.7 Cardiomegaly; I48.91 Unspecified atrial fibrillation; R62.7 Adult failure to thrive; R26.89 Other abnormalities of gait and mobility
CPT/HCPCS: 36415; 71010; 78582; 80053; 81001; 82550; 82553; 83880; 84484; 85025; 85610; 85730; 87086; 87088; 87186; 93005; 93010; 94640; 96365; 96374; 96375; 99284; A4222; Q0177; G0378; J0713; J1940; J2270; J2920; J2930; J7613; J7620

== ENCOUNTER → 2016-09-28 | Outpatient (CLI) | payer OTHER, MEDICAID ==
[2016-09-26 12:13] VITALS: BP 162/95
--- NOTE | 2016-09-28 16:06 | RAD ---
Chest, one view Indication: Shortness of breath Comparison: September 25, 2016 Findings: Right-sided chest port appears well positioned without pneumothorax. There is stable mild cardiomegaly. New streaky opacity within the mid right lung is compatible with atelectasis. Lungs ot herwise appear clear without focal consolidation. No significant effusion is identified. Impression: No acute cardiopulmonary abnormality or appreciable change since prior exam. Reported By:
== END ==
LOC: RAD 15:02
PROVIDERS: ATTEND Internal Medicine
DX: R06.02 Shortness of breath (principal)
CPT/HCPCS: 71010

== ENCOUNTER 2016-10-21 11:44 | Inpatient (IN) | payer OTHER, MEDICAID ==
[2016-10-21] MEDS: NS 1000 ML 1,000 ML IV SCH (12:19)
--- NOTE | 2016-10-21 12:25 | DR.AMS ---
HPI - Time Seen Time seen: 11:50 - PCP Primary Care Physician: PRUDENCE FUENTES - Complaint Chief Complaint:: PT TO ER PER [facility] STAFF WITH C/O LOW SODIUM AND CONFUSION,, Self Treatment fo Chief Complaint: Patient is from the half-way, labs this morning showed sodium 118. She was referred to the ED for evaluation and treatment - Source History Provided: Patient, [facility] - Mode of Arrival Mode of Arrival: Stretcher - Timing Onset of Chief Complaint: 10/21/16 Symptom Onset: Known Onset of Symptoms Start Date: 10/21/16 Onset of Symptoms Start Time: 08:00 PMH - PMH Past Medical History: Yes Past Medical History: Arthritis, Depression, Dyslipidemia, Hypertension, Hypothyroidism Past Surgical History: Yes Surgical History: Hysterectomy, Mastectomy - Family History History of Family Medical Conditions: No Family Medical History: Hypertension - Social History Does patient currently use any type of tobacco product: No Have you used tobacco products in the last 12 months: No Type of Tobacco Use: None Does any household member use tobacco: No Alcohol Use: None Do you use any recreational Drugs:: No Lives With: Family Lives Where: Home - infectious screening In the last 2 months have you had wt loss of >10#?: NO Have you had fever, night sweats or hemotysis?: No Have you traveled outside the country in the last 6 months?: No Isolation: Standard ROS - Review of Systems Eyes: No Symptoms Reported ENTM: No Symptoms Reported Respiratoy: No Symptoms Reported Cardiovascular: No Symptoms Reported Gastrointestinal/Abdominal: No Symptoms Reported Genitourinary: No Symptoms Reported Neurological: No Symptoms Reported Musculoskeletal: No Symptoms Reported Integumentary: Lesions (bilateral lower extremities) Hematologic/Lymphatic: No Symptoms Reported Endocrine: No Symptoms Reported Psychiatric: No Symptoms Reported All Other Systems: Reviewed and Negative PE - Vitals Vital Signs: Temp Pulse Resp BP BP BP BP 10/21/16 11:46 98.2 F 41 L 22 120/56 09/26/16 12:00 162/95 162/95 09/16/16 16:00 123/72 09/08/16 00:00 131/59 08/31/16 12:00 BP Pulse Ox 10/21/16 11:46 96 09/26/16 12:00 09/16/16 16:00 09/08/16 00:00 08/31/16 12:00 109/58 - General Limitations: No Limitations General Appearance: Alert, In No Apparent Distress - Head Head Exam: Normal Inspection, Atraumatic Head Exam Physical: Laceration - Eyes Eye exam: Normal Appearance, PERRL, EOMI Pupils: Regular, Round: Bilateral - ENT ENT Exam: Normal Exam, Normal Oropharynx External Ear Exam: Normal External Inspection TM/Canal Exam: Bilateral Normal Nose Exam: Normal Nose Exam Mouth Exam: Normal Inspection Throat Exam: Normal Inspection - Neck Neck Exam: Normal Inspection, Full ROM - Chest Chest Inspection: Normal Inspection - Respiratory Respiratory Exam: Normal Lung Sounds Bilat Respiratory Exam: Bilateral Clear to Auscultation - Cardiovascular Cardiovascular Exam: Regular Rate Course - Consultation Called: 01:50 (Agreed to admit for further evaluation and treatment) ROR - Labs Reviewed Laboratory: Creatine Kinase 175 Units/L (26-192) 10/21/16 10:00 CK-MB (CK-2) < 1.0 ng/mL (0-4.0) 10/21/16 10:00 CK/CKMB % Calc 0.6 % (<4) 10/21/16 10:00 Troponin I < 0.02 ng/mL (0-1.5) 10/21/16 10:00 Specimen Type Clean catch urine 10/21/16 12:19 Urine Color Yellow (YELLOW) 10/21/16 12:19 Urine Appearance Hazy (CLEAR) 10/21/16 12:19 Urine pH 6.0 (5.0 - 8.0) 10/21/16 12:19 Ur Specific [place] 1.010 (1.000-1.030) 10/21/16 12:19 Urine Protein 1+ (NEGATIVE) 10/21/16 12:19 Urine Glucose (UA) Negative (NEGATIVE) 10/21/16 12:19 Urine Ketones Negative (NEGATIVE) 10/21/16 12:19 Urine Occult Blood Negative (NEGATIVE) 10/21/16 12:19 Urine Nitrite Negative (NEGATIVE) 10/21/16 12:19 Urine Bilirubin Negative (NEGATIVE) 10/21/16 12:19 Urine Urobilinogen Normal (NORMAL) 10/21/16 12:19 Ur Leukocyte Esterase 1+ (NEGATIVE) 10/21/16 12:19 Urine RBC 0-2 /HPF (NEGATIVE) 10/21/16 12:19 Urine WBC 3-5 /HPF (NEGATIVE) 10/21/16 12:19 Ur Squamous Epith Cells Negative /HPF (NEGATIVE) 10/21/16 12:19 Urine Bacteria Trace /HPF (NEGATIVE) 10/21/16 12:19 Ur Culture Indicated? No/not indicated 10/21/16 12:19 - XRAY XRAY Interpreted by: Radiologist (Chest:Chronic interstitial lung changes remain. Soft tissue fullness within the right hilum persists withch can be folloed up radiographically to ensure resolution. There is a residual infiltrate and sirspace disease in the RLL. Soft tissue tissue fullness within the right hilum persists which can followed.) - Diagnosis Discharge Problem: Hyperkalemia, Hyponatremia, Bradycardia - Discharge Plan Condition: Stable - Follow ups/Referrals Follow ups/Referrals: Clark Chen [Primary Care Provider] - 3 days - Instructions
[2016-10-21 12:26] LABS: BILIRUBIN,URINE NEGATIVE (NEGATIVE); BLOOD/HEMOGLOBIN,URINE NEGATIVE (NEGATIVE); GLUCOSE, URINE NEGATIVE (NEGATIVE); KETONES,URINE NEGATIVE (NEGATIVE); LEUKOCYTE ESTERASE ,URINE 1+ (NEGATIVE); NITRITES,URINE NEGATIVE (NEGATIVE); PROTEIN,URINE 1+ (NEGATIVE); UROBILINOGEN,URINE NORMAL (NORMAL)
[2016-10-21 12:27] LABS: CREATINE KINASE 175 Units/L (26-192); CREATINE KINASE MB < 1.0 ng/mL (0-4.0); TROPONIN I < 0.02 ng/mL (0-1.5)
[2016-10-21 12:29] LABS: CKMB % 0.6 % (<4)
[2016-10-21 12:35] LABS: APPEARANCE,URINE HAZY (CLEAR); BACTERIA,URINE TRACE /HPF (NEGATIVE); COLOR,URINE YELLOW (YELLOW); RBC,URINE 0-2 /HPF (NEGATIVE); SQUAMOUS EPITHELIAL CELL,UR NEGATIVE /HPF (NEGATIVE)
[2016-10-21] MEDS ORDERED: ACCUNEB 1.25 MG NEBULE NEB ONE (12:35)
[2016-10-21] MEDS ORDERED: PROVENTIL NEB TX 0.083% 2.5MG/ 3ML ONE (12:39)
[2016-10-21] MEDS ORDERED: ATROPINE SULFATE ABBOJECT IVP ONE (12:49)
[2016-10-21] MEDS ORDERED: ATROPINE SULFATE ABBOJECT ONE (12:50)
--- NOTE | 2016-10-21 12:50 | RAD ---
HISTORY: Chest pain Study: Single view chest. Comparison: September 24, 2015. Findings: The trachea is midline. The cardiac silhouette is enlarged but stable. There is a stable right-side d CVL. Chronic interstitial lung changes remain. Soft tissue fullness within the right hilum persist s which can be followed up radiographically to ensure resolution. There is a residual infiltrate and airspace disease in the right lower lobe. Small volume left-sided effusion remains. The upper lung s are clear without focal infiltrate or effusion. The bony thorax is stable from prior. IMPRESSION: The trachea is midline. The cardiac silhouette is enlarged but stable. There is a stable right-side d CVL. Chronic interstitial lung changes remain. Soft tissue fullness within the right hilum persist s which can be followed up radiographically to ensure resolution. There is a residual infiltrate and airspace disease in the right lower lobe. Small volume left-sided effusion remains. The upper lung s are clear without focal infiltrate or effusion. The bony thorax is stable from prior. Reported By:
[2016-10-21] MEDS ORDERED: TRAMADOL HCL 50 MG PO PRN (14:48)
[2016-10-21] MEDS ORDERED: DUONEB 0.5 MG/3 MG IN PRN (14:48)
[2016-10-21] MEDS ORDERED: ZOFRAN TAB 4 MG PO PRN (14:48)
[2016-10-21] MEDS: LASIX IVP SCH ×2 (15:00→21:17)
[2016-10-21 16:18] VITALS: BMI 40.4
[2016-10-21] MEDS ORDERED: SODIUM CHL HYPERTONIC ** 3% ** 500 ML IV SCH (18:00)
[2016-10-21 19:48] LABS: CREATINE KINASE 149 Units/L (26-192); TROPONIN I < 0.02 ng/mL (0-1.5)
[2016-10-21 19:50] LABS: CREATINE KINASE MB < 1.0 ng/mL (0-4.0)
[2016-10-21 19:51] LABS: CKMB % 0.7 % (<4)
[2016-10-21] MEDS ORDERED: CITALOPRAM HYDROBROMIDE 10 MG PO SCH (21:00)
[2016-10-21] MEDS ORDERED: POTASSIUM CHLORIDE 10 MEQ PO SCH (21:00)
[2016-10-21] MEDS: LYRICA CAP 50 MG PO SCH (21:16)
[2016-10-21] MEDS: SINEMET (PLAIN) 25/100 MG PO SCH (21:16)
[2016-10-21] MEDS: VIBRAMYCIN PO SCH (21:16)
[2016-10-21] MEDS: CELEXA PO SCH (21:16)
[2016-10-21] MEDS: WELCHOL PO SCH (21:19)
[2016-10-21] MEDS: MICRO K EXTEN CAP 10 MEQ PO SCH (21:39)
[2016-10-21] MEDS ORDERED: PATIENT'S HOME MEDICATION (Pregabalin [Lyrica] 50 MG) PO SCH (22:00)
[2016-10-22 01:21] LABS: CKMB % 0.7 % (<4); CREATINE KINASE 137 Units/L (26-192); CREATINE KINASE MB < 1.0 ng/mL (0-4.0); TROPONIN I < 0.02 ng/mL (0-1.5)
[2016-10-22] MEDS ORDERED: BUTT CREAM (COMPOUND) TOP PRN (03:07)
[2016-10-22 05:12] LABS: ALANINE AMINOTRANSFERASE 11 Units/L (12-78); ALBUMIN 2.7 g/dL (3.4-5.0); ALKALINE PHOSPHATASE 62 Units/L (46-116); ASPARTATE AMINO TRANSFERASE 14 Units/L (15-37); BASOPHILS # (AUTO) 0.1 X10^3/uL (0.0-0.1); BLOOD UREA NITROGEN 22 mg/dL (7-18); CALCIUM 8.6 mg/dL (8.5-10.1); CARBON DIOXIDE 31.6 mmol/L (21-32); CHLORIDE 91 mmol/L (98-107); COR CA(FOR HYPOALB) 9.6 mg/dL (8.5-10.1); EOSINOPHILS # (AUTO) 0.3 x10^3/uL (0.0-0.2); EOSINOPHILS % (AUTO) 5.8 % (0.9-2.9); GLUCOSE 79 mg/dL (65-99); HEMATOCRIT 31.2 % (36.0-47.0); HEMOGLOBIN 10.6 g/dL (12.0-16.0); LYMPHOCYTES # (AUTO) 0.7 X10^3/uL (1.3-2.9); LYMPHOCYTES % (AUTO) 11.9 % (21.0-51.0); MEAN CORPUSCULAR HEMOGLOBIN 30.5 pg (27.0-34.0); MEAN CORPUSCULAR HGB CONC 33.9 g/dL (33.0-35.0); MEAN CORPUSCULAR VOLUME 89.8 fL (80.0-100.0); MEAN PLATELET VOLUME 7.9 fL (7.4-11.0); MONOCYTES # (AUTO) 0.5 x10^3/uL (0.3-0.8); MONOCYTES % (AUTO) 9.7 % (0.0-13.0); NEUTROPHILS % (AUTO) 71.6 % (42.0-75.0); PLATELET COUNT 131 X10^3/uL (150.0-450.0); RED BLOOD COUNT 3.47 X10^6/uL (3.5-5.4); RED CELL DISTRIBUTION WIDTH 15.2 % (11.6-16.5); SODIUM 126 mmol/L (136-145); WHITE BLOOD COUNT 5.6 X10^3/uL (3.6-10.0); eGFR BLACK RACES > 60 (>60); eGFR NON BLACK RACES > 60 (>60)
[2016-10-22] MEDS: SYNTHROID 150 mcg TAB PO SCH (06:25)
[2016-10-22] MEDS: LYRICA CAP 50 MG PO SCH ×3 (06:25→21:56)
[2016-10-22] MEDS: SINEMET (PLAIN) 25/100 MG PO SCH ×3 (06:25→21:55)
--- NOTE | 2016-10-22 06:31 | RAD ---
AP chest Indication: Bradycardia Comparison: 10/21/2016 Findings: Heart size is unchanged, enlarged. There is increased interstitial opacities bilaterally w ith peribronchial thickening most consistent with pulmonary interstitial edema. Small bilateral pleu ral effusions. Right chest wall MediPort has its tip terminating within the lower SVC, unchanged. No pneumothorax. No acute osseous abnormality. Multiple clips project over the left breast. Impression: Stable examination demonstrating cardiomegaly with bilateral interstitial opacities and small pleural effusions. Reported By:
[2016-10-22] MEDS ORDERED: LEVOTHYROXINE SODIUM 150 MCG PO SCH (09:00)
[2016-10-22] MEDS ORDERED: PATIENT'S HOME MEDICATION (Multivit-Min/Fa/Lycopen/Lutein [Centrum Silver Tablet] 1 TAB) PO SCH (09:00)
[2016-10-22] MEDS ORDERED: ZINC 100 MG PO SCH (09:00)
[2016-10-22] MEDS ORDERED: LOSARTAN POTASSIUM 100 MG PO SCH (09:00)
[2016-10-22] MEDS ORDERED: PATIENT'S HOME MEDICATION (Levocetirizine Dihydrochloride [Xyzal] 1 TAB) PO SCH (09:00)
[2016-10-22] MEDS ORDERED: COZAAR PO SCH ×2 (09:00→13:35)
[2016-10-22] MEDS: NS 1000 ML 1,000 ML IV SCH ×2 (09:23→18:05)
[2016-10-22] MEDS: HYDROCHLOROTHIAZIDE 12.5 MG CAP PO SCH (09:24)
[2016-10-22] MEDS: VITAMIN C PO SCH (09:37)
[2016-10-22] MEDS: LASIX IVP SCH ×2 (09:38→21:56)
[2016-10-22] MEDS: TAB-A-VITE PO SCH (09:38)
[2016-10-22] MEDS: WELCHOL PO SCH ×2 (09:38→21:56)
[2016-10-22] MEDS: MICRO K EXTEN CAP 10 MEQ PO SCH ×2 (09:38→21:55)
[2016-10-22] MEDS: VIBRAMYCIN PO SCH ×2 (09:38→21:56)
[2016-10-22] MEDS: MILK OF MAGNESIA PO SCH (12:01)
[2016-10-22] MEDS: MAXIPIME 2 GM in NS 100 ML IV + SPIKE MINIBAG* 100 ML IV SCH (12:12)
--- NOTE | 2016-10-22 13:22 | DR.H&P ---
H&P - History & Physical for Day of: H&P Date: 10/21/16 - Chief Complaint Chief Complaint: AMS - Allergies Allergies/Adverse Reactions: Allergies Allergy/AdvReac Type Severity Reaction Status Date / Time clindamycin Allergy Intermediate RASH Verified 10/21/16 11:51 Sulfa (Sulfonamide Allergy Verified 10/21/16 11:51 Antibiotics) - History of Present Illness History of Present Illness: 89 WF, CURRENTLY IN [facility] FOR RE[facility], ER ADMIT WITH ONSET OF AMS, DIFFUSE WEAKENSS, CHRONIC PAIN. PT HAS PMH OF COPD, CHF, OA, WEAKNESS, HARD OF HEARING, CAD. PLAN TO ADMIT FOR FURTHER EVLAUTION - Past Medical History Past Medical History: Anxiety, Arthritis, Asthma, CHF, COPD, Coronary Artery Disease, Depression, Dyslipidemia, Hypertension, Hypothyroidism Additional Medical History: Parkinson's, Atrial Fibrillation - Past Surgical History Surgical History: Hysterectomy, Mastectomy Additional Surgical History: Hernia Repair, Left Mastectomy, toe surgery - Family History Family Medical History: Hypertension - Social History Does patient currently use any type of tobacco product: No Have you used tobacco products in the last 12 months: No Type of Tobacco Use: None Does any household member use tobacco: No Alcohol Use: None Drug Use: None - Medications Home Medications: Doxycycline Hyclate [Vibramycin] 100 mg PO BID 10/21/16 [History Confirmed 10/21] Ipratropium/Albuterol Nebule [DUONEB 0.5 MG/3 MG NEBULE *] 1 inh INH QID PRN [History Confirmed 10/21/16] Levocetirizine Dihydrochloride [Xyzal] 1 tab PO DAILY 10/21/16 [History Confirmed 10/21/16] Magnesium Hydroxide [Milk of Magnesia] 30 ml PO DAILY 10/21/16 [History Confirmed 10/21/16] Ondansetron HCl [ZOFRAN TAB 4 MG *] 1 tab PO PRN PRN 10/21/16 [History Confirmed 10/21/16] - Review of Systems Constitutional: Weakness Eyes: No Symptoms Reported ENT: No Symptoms Reported Respiratory: Shortness of Breath, Wheezing Cardiovascular: No Symptoms Reported Gastrointestinal: No Symptoms Reported Genitourinary: Incontinence Musculoskeletal: Back Pain, Leg Pain Skin: Bruising Neurological: Weakness, Confusion - Physical Exam Vital Signs: Temperature 97.6 F Pulse Rate [Brachial] 41 Pulse Rate 45 Respiratory Rate 15 Blood Pressure [Right Arm] 101/46 O2 Sat by Pulse Oximetry 99 Oriented: Person, Other (VERY HARD OF HEARING) Eyes: Normal Ear: Normal Nose: Normal Throat: Normal Respiratory: Diminished Throughout, Wheezes Throughout Cardiovascular: Bradycardia, Edema Tenderness: Epigastric Skin: Decreased Turgur, Wound Musculoskeletal: Back:Lumbar, Motor Deficit Psychiatric: Anxiety Affect: Anxious - Assessment/Plan (1) Altered mental status Qualifiers: Altered mental status type: A Coma depth: C Coma timing: C Status: Acute Plan: ADMIT ICU, CARDIAC MONITORING, CXR, BP MONITORING. HYDRATION, REPEAT AM LABS, RESUME HOME MEDS, RESP CONSULT, SUPPLEMENTAL O2. INR, SPUTUM CULTURE. CBC CMP UA ON ADMISSION (2) Hyponatremia Status: Acute (3) Bradycardia Status: Acute (4) Acute respiratory distress Status: Acute (5) Degenerative joint disease of knee, left Qualifiers: Osteoarthritis type: O Status: Chronic (6) Depression Qualifiers: Depression Type: D Major depression recurrence: M Active/Remission status : A Major depression episode severity: M Psychotic features: P Trimester: T Status: Chronic (7) History of atrial fibrillation Status: Chronic (8) Hypothyroidism Qualifiers: Hypothyroidism type: H Status: Chronic (9) Parkinson disease Status: Chronic
--- NOTE | 2016-10-22 13:39 | PCM.PROG ---
Progress Note - Progress Note for Day of Date: 10/22/16 - Subjective Subjective: 89 WF ADMITTED ON 10/21 FOR HYPONATREMIA, DEHYDRATION, RESP DISTRESS , AMS, WEAKNESS. HOLDING BB DUE TO BRADYCARDIA, CONTINUE CARDIAC MONITORING AND AM CXR, GENTLE HYDRATION DUE TO CHF, RESP THERAPY. INR THIS AM - Past Medical Family Social History Past Med/Fam/Surg Hx: No changes since H&P Allergies: Allergies clindamycin Allergy (Intermediate, Verified 10/21/16 11:51) RASH Sulfa (Sulfonamide Antibiotics) Allergy (Verified 10/21/16 11:51) - Review of Systems ROS: No change since H&P - Vital Signs and I&O's Vital Signs: Temperature 97.6 F Pulse Rate [Brachial] 41 Pulse Rate 45 Respiratory Rate 15 Blood Pressure [Right Arm] 101/46 O2 Sat by Pulse Oximetry 99 Intake and Output: Intake & Output 10/20/16 10/21/16 10/22/16 10/23/16 11:59 11:59 11:59 11:59 Intake Total 1156 Output Total 2600 Balance -1444 - Physical Exam Oriented: Person, Other (VERY HARD OF HEARING) Eyes: Normal Ear: Normal Nose: Normal Throat: Normal Respiratory: Diminished, Rales (MILD TO BASES) Cardiovascular: Bradycardia, Edema Tenderness: Epigastric Skin: Decreased Turgur, Wound Musculoskeletal: Back:Lumbar, Motor Deficit Psychiatric: Anxiety Affect: Anxious Speech Pattern: Clear, Appropriate - Laboratory and Diagnostics Result Diagrams: 10/22/16 04:45 10/22/16 04:45 Labs: Laboratory WBC 5.6 X10^3/uL (3.6-10.0) 10/22/16 04:45 RBC 3.47 X10^6/uL (3.5-5.4) L 10/22/16 04:45 Hgb 10.6 g/dL (12.0-16.0) L 10/22/16 04:45 Hct 31.2 % (36.0-47.0) L 10/22/16 04:45 MCV 89.8 fL (80.0-100.0) 10/22/16 04:45 MCH 30.5 pg (27.0-34.0) 10/22/16 04:45 MCHC 33.9 g/dL (33.0-35.0) 10/22/16 04:45 RDW 15.2 % (11.6-16.5) 10/22/16 04:45 Plt Count 131 X10^3/uL (150.0-450.0) L 10/22/16 04:45 MPV 7.9 fL (7.4-11.0) 10/22/16 04:45 Neut % 71.6 % (42.0-75.0) 10/22/16 04:45 Lymph % 11.9 % (21.0-51.0) L 10/22/16 04:45 [place] % 9.7 % (0.0-13.0) 10/22/16 04:45 Eos % 5.8 % (0.9-2.9) H 10/22/16 04:45 Baso % 1.0 % (0.2-1.0) 10/22/16 04:45 Neut # 4.0 x10^3/uL (2.2-4.8) 10/22/16 04:45 Lymph # 0.7 X10^3/uL (1.3-2.9) L 10/22/16 04:45 [place] # 0.5 x10^3/uL (0.3-0.8) 10/22/16 04:45 Eos # 0.3 x10^3/uL (0.0-0.2) H 10/22/16 04:45 Baso # 0.1 X10^3/uL (0.0-0.1) 10/22/16 04:45 Absolute Nucleated RBC 0.0 /100WBC 10/22/16 04:45 INR Target Range - 10/22/16 11:45 INR 2.67 (0.8-1.3) H 10/22/16 11:45 Sodium 126 mmol/L (136-145) L 10/22/16 04:45 Corrected Sodium TNP 10/22/16 04:45 Potassium 4.7 mmol/L (3.5-5.1) 10/22/16 04:45 Chloride 91 mmol/L (98-107) L 10/22/16 04:45 Carbon Dioxide 31.6 mmol/L (21-32) 10/22/16 04:45 BUN 22 mg/dL (7-18) H 10/22/16 04:45 Creatinine 0.90 mg/dL (0.55-1.02) 10/22/16 04:45 Est GFR (MDRD) Af Amer > 60 (>60) 10/22/16 04:45 Est GFR (MDRD) Non-Af > 60 (>60) 10/22/16 04:45 Glucose 79 mg/dL (65-99) 10/22/16 04:45 Calcium 8.6 mg/dL (8.5-10.1) 10/22/16 04:45 Corrected Calcium 9.6 mg/dL (8.5-10.1) 10/22/16 04:45 Total Bilirubin 0.50 mg/dL (0.2-1.0) 10/22/16 04:45 AST 14 Units/L (15-37) L 10/22/16 04:45 ALT 11 Units/L (12-78) L 10/22/16 04:45 Alkaline Phosphatase 62 Units/L (46-116) 10/22/16 04:45 Creatine Kinase 137 Units/L (26-192) 10/22/16 00:20 CK-MB (CK-2) < 1.0 ng/mL (0-4.0) 10/22/16 00:20 CK/CKMB % Calc 0.7 % (<4) 10/22/16 00:20 Troponin I < 0.02 ng/mL (0-1.5) 10/22/16 00:20 Total Protein 6.0 g/dL (6.4-8.2) L 10/22/16 04:45 Albumin 2.7 g/dL (3.4-5.0) L 10/22/16 04:45 Globulin 3.3 g/dL (2.5-4.5) 10/22/16 04:45 Albumin/Globulin Ratio 0.8 Ratio (1.1-2.1) L 10/22/16 04:45 Specimen Type Clean catch urine 10/21/16 12:19 Urine Color Yellow (YELLOW) 10/21/16 12:19 Urine Appearance Hazy (CLEAR) 10/21/16 12:19 Urine pH 6.0 (5.0 - 8.0) 10/21/16 12:19 Ur Specific [place] 1.010 (1.000-1.030) 10/21/16 12:19 Urine Protein 1+ (NEGATIVE) 10/21/16 12:19 Urine Glucose (UA) Negative (NEGATIVE) 10/21/16 12:19 Urine Ketones Negative (NEGATIVE) 10/21/16 12:19 Urine Occult Blood Negative (NEGATIVE) 10/21/16 12:19 Urine Nitrite Negative (NEGATIVE) 10/21/16 12:19 Urine Bilirubin Negative (NEGATIVE) 10/21/16 12:19 Urine Urobilinogen Normal (NORMAL) 10/21/16 12:19 Ur Leukocyte Esterase 1+ (NEGATIVE) 10/21/16 12:19 Urine RBC 0-2 /HPF (NEGATIVE) 10/21/16 12:19 Urine WBC 3-5 /HPF (NEGATIVE) 10/21/16 12:19 Ur Squamous Epith Cells Negative /HPF (NEGATIVE) 10/21/16 12:19 Urine Bacteria Trace /HPF (NEGATIVE) 10/21/16 12:19 Ur Culture Indicated? No/not indicated 10/21/16 12:19 - Plan (1) Altered mental status Status: Acute Qualifiers: Altered mental status type: A Coma depth: C Coma timing: C Plan: DIFFUSE WEAKNESS, GENTLE HYDRATION. STRIC TI & OS. 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 AM CXR, SUPPLEMENTAL O2, RESP THERAPY. STRICT I & OS (8) History of atrial fibrillation Status: Chronic Plan: COUMADIN THERAPY (9) Hypothyroidism Status: Chronic Qualifiers: Hypothyroidism type: H (10) Parkinson disease Status: Chronic
[2016-10-22] MEDS: SOLU-Medrol 40 MG VIAL IVP SCH ×2 (13:44→21:56)
[2016-10-22] MEDS ORDERED: SOLU-Medrol 40 MG VIAL IVP SCH (14:00)
[2016-10-22] MEDS: COUMADIN TAB 2 MG PO SCH (21:55)
[2016-10-22] MEDS: CELEXA PO SCH (21:55)
[2016-10-23] MEDS: NS 1000 ML 1,000 ML IV SCH (04:16)
[2016-10-23] MEDS: LYRICA CAP 50 MG PO SCH ×3 (05:48→23:01)
[2016-10-23] MEDS: SINEMET (PLAIN) 25/100 MG PO SCH ×3 (05:48→23:01)
[2016-10-23] MEDS: SOLU-Medrol 40 MG VIAL IVP SCH (05:48)
[2016-10-23 06:05] LABS: ALANINE AMINOTRANSFERASE 12 Units/L (12-78); ALKALINE PHOSPHATASE 68 Units/L (46-116); ASPARTATE AMINO TRANSFERASE 15 Units/L (15-37); BASOPHILS % (AUTO) 0.2 % (0.2-1.0); BLOOD UREA NITROGEN 17 mg/dL (7-18); CALCIUM 8.9 mg/dL (8.5-10.1); CARBON DIOXIDE 29.4 mmol/L (21-32); CHLORIDE 93 mmol/L (98-107); COR CA(FOR HYPOALB) 9.7 mg/dL (8.5-10.1); COR NA(FOR HYPERGLY) 129 mmol/L (136-145); CREATININE 0.88 mg/dL (0.55-1.02); EOSINOPHILS % (AUTO) 0.1 % (0.9-2.9); GLUCOSE 158 mg/dL (65-99); HEMATOCRIT 33.8 % (36.0-47.0); HEMOGLOBIN 11.4 g/dL (12.0-16.0); LYMPHOCYTES # (AUTO) 0.4 X10^3/uL (1.3-2.9); LYMPHOCYTES % (AUTO) 9.6 % (21.0-51.0); MAGNESIUM 1.5 mg/dL (1.7-2.9); MEAN CORPUSCULAR HEMOGLOBIN 30.2 pg (27.0-34.0); MEAN CORPUSCULAR HGB CONC 33.8 g/dL (33.0-35.0); MEAN CORPUSCULAR VOLUME 89.6 fL (80.0-100.0); MEAN PLATELET VOLUME 7.6 fL (7.4-11.0); MONOCYTES # (AUTO) 0.1 x10^3/uL (0.3-0.8); MONOCYTES % (AUTO) 2.5 % (0.0-13.0); NEUTROPHILS # (AUTO) 3.4 x10^3/uL (2.2-4.8); NEUTROPHILS % (AUTO) 87.6 % (42.0-75.0); PLATELET COUNT 130 X10^3/uL (150.0-450.0); RED BLOOD COUNT 3.78 X10^6/uL (3.5-5.4); RED CELL DISTRIBUTION WIDTH 15.2 % (11.6-16.5); SODIUM 128 mmol/L (136-145); TOTAL PROTEIN 6.8 g/dL (6.4-8.2); WHITE BLOOD COUNT 3.9 X10^3/uL (3.6-10.0); eGFR BLACK RACES > 60 (>60); eGFR NON BLACK RACES > 60 (>60)
[2016-10-23] MEDS: SYNTHROID 150 mcg TAB PO SCH (06:33)
[2016-10-23] MEDS: MILK OF MAGNESIA PO SCH (08:08)
[2016-10-23] MEDS: MAXIPIME 2 GM in NS 100 ML IV + SPIKE MINIBAG* 100 ML IV SCH ×2 (08:08→15:38)
[2016-10-23] MEDS: VITAMIN C PO SCH (08:08)
[2016-10-23] MEDS: TAB-A-VITE PO SCH (08:08)
[2016-10-23] MEDS: LASIX IVP SCH ×2 (08:08→20:13)
[2016-10-23] MEDS: MICRO K EXTEN CAP 10 MEQ PO SCH ×2 (08:08→20:13)
[2016-10-23] MEDS: WELCHOL PO SCH ×2 (08:09→20:15)
[2016-10-23] MEDS: HYDROCHLOROTHIAZIDE 12.5 MG CAP PO SCH (08:09)
[2016-10-23] MEDS: VIBRAMYCIN PO SCH ×2 (08:09→20:13)
--- NOTE | 2016-10-23 13:22 | PCM.PROG ---
Progress Note - Progress Note for Day of Date: 10/23/16 - Subjective Subjective: 89 WF ADMITTED ON 10/21 FOR HYPONATREMIA, DEHYDRATION, RESP DISTRESS , AMS, WEAKNESS. THIS AM PT HAS IMPROVING ALERTNESS, CONTINUE DIFFUSE EXP RALES AND DIMINISHED BASES. DISCUSSED IN LENGTH WITH DAUGHTER ABOUT TRANSFER TO [facility], SHE REFUSED PT TRANSFER AT THIS TIME, EXPLAINED MOTHER DECLINING, CRITICAL HEALTH STATUS. DAUGHTER DID SAY SHE DID NOT WANT HER MOTHER TO BE ON VENTILATOR , DISCUSSED LIMITED DNR. WE WILL CONTINUE VERY GENTLE IV HYDRATION, STRICT I & OS, DAILY CXR. CARDIAC MONITORING, ECHO FOR SATURDAY AND CT HEAD. - Past Medical Family Social History Past Med/Fam/Surg Hx: No changes since H&P Allergies: Allergies clindamycin Allergy (Intermediate, Verified 10/21/16 11:51) RASH Sulfa (Sulfonamide Antibiotics) Allergy (Verified 10/21/16 11:51) - Review of Systems ROS: No change since H&P - Vital Signs and I&O's Vital Signs: Temperature 97 F Pulse Rate [Brachial] 69 Pulse Rate 45 Respiratory Rate 18 Blood Pressure [Right Arm] 142/62 O2 Sat by Pulse Oximetry 98 Intake and Output: Intake & Output 10/21/16 10/22/16 10/23/16 10/24/16 11:59 11:59 11:59 11:59 Intake Total 1156 1412 Output Total 2600 2150 Balance -0289 -730 - Physical Exam Oriented: Person, Other (VERY HARD OF HEARING) Eyes: Normal Ear: Normal Nose: Normal Throat: Normal Respiratory: Diminished, Rales (MILD TO BASES) Cardiovascular: Bradycardia, Edema Tenderness: Epigastric Skin: Decreased Turgur, Wound Musculoskeletal: Back:Lumbar, Motor Deficit Psychiatric: Anxiety Affect: Anxious Speech Pattern: Clear, Appropriate - Laboratory and Diagnostics Result Diagrams: 10/23/16 05:31 10/23/16 05:31 Labs: Laboratory WBC 3.9 X10^3/uL (3.6-10.0) 10/23/16 05:31 RBC 3.78 X10^6/uL (3.5-5.4) 10/23/16 05:31 Hgb 11.4 g/dL (12.0-16.0) L 10/23/16 05:31 Hct 33.8 % (36.0-47.0) L 10/23/16 05:31 MCV 89.6 fL (80.0-100.0) 10/23/16 05:31 MCH 30.2 pg (27.0-34.0) 10/23/16 05:31 MCHC 33.8 g/dL (33.0-35.0) 10/23/16 05:31 RDW 15.2 % (11.6-16.5) 10/23/16 05:31 Plt Count 130 X10^3/uL (150.0-450.0) L 10/23/16 05:31 MPV 7.6 fL (7.4-11.0) 10/23/16 05:31 Neut % 87.6 % (42.0-75.0) H 10/23/16 05:31 Lymph % 9.6 % (21.0-51.0) L 10/23/16 05:31 [place] % 2.5 % (0.0-13.0) 10/23/16 05:31 Eos % 0.1 % (0.9-2.9) L 10/23/16 05:31 Baso % 0.2 % (0.2-1.0) 10/23/16 05:31 Neut # 3.4 x10^3/uL (2.2-4.8) 10/23/16 05:31 Lymph # 0.4 X10^3/uL (1.3-2.9) L 10/23/16 05:31 [place] # 0.1 x10^3/uL (0.3-0.8) L 10/23/16 05:31 Eos # 0.0 x10^3/uL (0.0-0.2) 10/23/16 05:31 Baso # 0.0 X10^3/uL (0.0-0.1) 10/23/16 05:31 Absolute Nucleated RBC 0.1 /100WBC 10/23/16 05:31 INR Target Range - 10/22/16 11:45 INR 2.67 (0.8-1.3) H 10/22/16 11:45 Sodium 128 mmol/L (136-145) L 10/23/16 05:31 Corrected Sodium 129 mmol/L (136-145) L 10/23/16 05:31 Potassium 4.8 mmol/L (3.5-5.1) 10/23/16 05:31 Chloride 93 mmol/L (98-107) L 10/23/16 05:31 Carbon Dioxide 29.4 mmol/L (21-32) 10/23/16 05:31 BUN 17 mg/dL (7-18) 10/23/16 05:31 Creatinine 0.88 mg/dL (0.55-1.02) 10/23/16 05:31 Est GFR (MDRD) Af Amer > 60 (>60) 10/23/16 05:31 Est GFR (MDRD) Non-Af > 60 (>60) 10/23/16 05:31 Glucose 158 mg/dL (65-99) H 10/23/16 05:31 Calcium 8.9 mg/dL (8.5-10.1) 10/23/16 05:31 Corrected Calcium 9.7 mg/dL (8.5-10.1) 10/23/16 05:31 Magnesium 1.5 mg/dL (1.7-2.9) L 10/23/16 05:31 Total Bilirubin 0.40 mg/dL (0.2-1.0) 10/23/16 05:31 AST 15 Units/L (15-37) 10/23/16 05:31 ALT 12 Units/L (12-78) 10/23/16 05:31 Alkaline Phosphatase 68 Units/L (46-116) 10/23/16 05:31 Creatine Kinase 137 Units/L (26-192) 10/22/16 00:20 CK-MB (CK-2) < 1.0 ng/mL (0-4.0) 10/22/16 00:20 CK/CKMB % Calc 0.7 % (<4) 10/22/16 00:20 Troponin I < 0.02 ng/mL (0-1.5) 10/22/16 00:20 Total Protein 6.8 g/dL (6.4-8.2) 10/23/16 05:31 Albumin 3.0 g/dL (3.4-5.0) L 10/23/16 05:31 Globulin 3.8 g/dL (2.5-4.5) 10/23/16 05:31 Albumin/Globulin Ratio 0.8 Ratio (1.1-2.1) L 10/23/16 05:31 Specimen Type Clean catch urine 10/21/16 12:19 Urine Color Yellow (YELLOW) 10/21/16 12:19 Urine Appearance Hazy (CLEAR) 10/21/16 12:19 Urine pH 6.0 (5.0 - 8.0) 10/21/16 12:19 Ur Specific [place] 1.010 (1.000-1.030) 10/21/16 12:19 Urine Protein 1+ (NEGATIVE) 10/21/16 12:19 Urine Glucose (UA) Negative (NEGATIVE) 10/21/16 12:19 Urine Ketones Negative (NEGATIVE) 10/21/16 12:19 Urine Occult Blood Negative (NEGATIVE) 10/21/16 12:19 Urine Nitrite Negative (NEGATIVE) 10/21/16 12:19 Urine Bilirubin Negative (NEGATIVE) 10/21/16 12:19 Urine Urobilinogen Normal (NORMAL) 10/21/16 12:19 Ur Leukocyte Esterase 1+ (NEGATIVE) 10/21/16 12:19 Urine RBC 0-2 /HPF (NEGATIVE) 10/21/16 12:19 Urine WBC 3-5 /HPF (NEGATIVE) 10/21/16 12:19 Ur Squamous Epith Cells Negative /HPF (NEGATIVE) 10/21/16 12:19 Urine Bacteria Trace /HPF (NEGATIVE) 10/21/16 12:19 Ur Culture Indicated? No/not indicated 10/21/16 12:19 - Plan (1) Altered mental status Status: Acute Qualifiers: Altered mental status type: A Coma depth: C Coma timing: C Plan: DIFFUSE WEAKNESS, GENTLE HYDRATION. STRICT I & OS, CT HEAD. 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 AM CXR, SUPPLEMENTAL O2, RESP THERAPY. STRICT I & OS (8) History of atrial fibrillation Status: Chronic Plan: COUMADIN THERAPY (9) Hypothyroidism Status: Chronic Qualifiers: Hypothyroidism type: H (10) Parkinson disease Status: Chronic
--- NOTE | 2016-10-23 15:46 | CT ---
STUDY: CT HEAD WITHOUT CONTRAST HISTORY: Altered mental status. COMPARISON: Head CT dated April 07, 2011. TECHNIQUE: Multiple axial images of the head were obtained from the skull base to the vertex without administration of IV contrast. Automated exposure control (AEC) was utilized to adjust the MA and/o r kV. Findings: The sulci, cisterns and ventricles are prominent consistent with diffuse volume loss. There are confluent and scattered foci of low attenuation in the periventricular and subcortical whi te matter of both hemispheres. This is a nonspecific finding which likely represents microangiopathi c change in a patient of this age. There is no evidence of acute territorial infarction, hemorrhage, mass, mass effect or midline shift . There are no abnormal extra-axial fluid collections. There is no evidence of acute osseous abnormality or significant soft tissue swelling. IMPRESSION: 1. No evidence of acute intracranial abnormality. 2. Nonspecific white matter change and volume loss as described. 3. If there remains strong clinical concern for acute intracranial abnormality, then an MRI examinat ion should be considered for further evaluation. Reported By:
[2016-10-23] MEDS: COUMADIN TAB 2 MG PO SCH (20:13)
[2016-10-23] MEDS: CELEXA PO SCH (20:15)
[2016-10-24 05:30] LABS: BASOPHILS % (AUTO) 0.1 % (0.2-1.0); EOSINOPHILS % (AUTO) 0.1 % (0.9-2.9); HEMATOCRIT 30.4 % (36.0-47.0); HEMOGLOBIN 10.5 g/dL (12.0-16.0); LYMPHOCYTES # (AUTO) 0.6 X10^3/uL (1.3-2.9); LYMPHOCYTES % (AUTO) 10.2 % (21.0-51.0); MEAN CORPUSCULAR HEMOGLOBIN 30.6 pg (27.0-34.0); MEAN CORPUSCULAR HGB CONC 34.5 g/dL (33.0-35.0); MEAN CORPUSCULAR VOLUME 88.8 fL (80.0-100.0); MEAN PLATELET VOLUME 7.3 fL (7.4-11.0); MONOCYTES # (AUTO) 0.4 x10^3/uL (0.3-0.8); NEUTROPHILS # (AUTO) 5.1 x10^3/uL (2.2-4.8); NEUTROPHILS % (AUTO) 82.6 % (42.0-75.0); PLATELET COUNT 133 X10^3/uL (150.0-450.0); RED BLOOD COUNT 3.42 X10^6/uL (3.5-5.4); RED CELL DISTRIBUTION WIDTH 15.2 % (11.6-16.5); WHITE BLOOD COUNT 6.2 X10^3/uL (3.6-10.0)
[2016-10-24 05:38] LABS: ALANINE AMINOTRANSFERASE 12 Units/L (12-78); ALBUMIN 2.8 g/dL (3.4-5.0); ALKALINE PHOSPHATASE 53 Units/L (46-116); ASPARTATE AMINO TRANSFERASE 12 Units/L (15-37); BLOOD UREA NITROGEN 16 mg/dL (7-18); CALCIUM 8.6 mg/dL (8.5-10.1); CARBON DIOXIDE 31.5 mmol/L (21-32); CHLORIDE 95 mmol/L (98-107); COR CA(FOR HYPOALB) 9.6 mg/dL (8.5-10.1); COR NA(FOR HYPERGLY) 129 mmol/L (136-145); CREATININE 0.73 mg/dL (0.55-1.02); GLUCOSE 111 mg/dL (65-99); SODIUM 129 mmol/L (136-145); eGFR BLACK RACES > 60 (>60); eGFR NON BLACK RACES > 60 (>60)
[2016-10-24] MEDS: SYNTHROID 150 mcg TAB PO SCH (06:18)
[2016-10-24] MEDS: SINEMET (PLAIN) 25/100 MG PO SCH ×3 (06:18→21:06)
[2016-10-24] MEDS: LYRICA CAP 50 MG PO SCH ×3 (06:18→21:06)
--- NOTE | 2016-10-24 06:19 | RAD ---
HISTORY: Follow up congestive heart failure Study: Chest one view Comparison: October 22, 2016 Findings: There is a port present on the right. The patient is rotated to the left. The enlarged. No definite congestive heart failure is present on today's examination. No definite acute alveolar infiltrates a re present . haziness in the right lung base may be due to right pleural effusion. No left pleural e ffusion is identified. The bony thorax is unremarkable. IMPRESSION: Cardiomegaly without definite congestive heart failure No definite infiltrates Suspect right pleural effusion Reported By:
[2016-10-24] MEDS: VITAMIN C PO SCH (09:39)
[2016-10-24] MEDS: VIBRAMYCIN PO SCH ×2 (09:39→21:06)
[2016-10-24] MEDS: COZAAR PO SCH (09:39)
[2016-10-24] MEDS: MILK OF MAGNESIA PO SCH (09:39)
[2016-10-24] MEDS: MICRO K EXTEN CAP 10 MEQ PO SCH ×2 (09:39→21:06)
[2016-10-24] MEDS: WELCHOL PO SCH ×2 (09:39→21:05)
[2016-10-24] MEDS: LASIX IVP SCH ×2 (09:40→21:06)
[2016-10-24] MEDS: TAB-A-VITE PO SCH (09:40)
[2016-10-24] MEDS: MAXIPIME 2 GM in NS 100 ML IV + SPIKE MINIBAG* 100 ML IV SCH (10:30)
[2016-10-24] MEDS: NS 1000 ML 1,000 ML IV SCH (17:03)
[2016-10-24] MEDS: COUMADIN TAB 2 MG PO SCH (21:07)
[2016-10-24] MEDS: CELEXA PO SCH (21:07)
[2016-10-25] MEDS: NS 1000 ML 1,000 ML IV SCH ×2 (04:55→23:01)
[2016-10-25] MEDS: LYRICA CAP 50 MG PO SCH ×3 (06:02→21:05)
[2016-10-25] MEDS: SYNTHROID 150 mcg TAB PO SCH (06:02)
[2016-10-25] MEDS: SINEMET (PLAIN) 25/100 MG PO SCH ×3 (06:02→21:07)
[2016-10-25 06:16] LABS: BASOPHILS % (AUTO) 0.2 % (0.2-1.0); EOSINOPHILS # (AUTO) 0.1 x10^3/uL (0.0-0.2); EOSINOPHILS % (AUTO) 1.7 % (0.9-2.9); HEMATOCRIT 32.2 % (36.0-47.0); LYMPHOCYTES % (AUTO) 14.8 % (21.0-51.0); MEAN CORPUSCULAR HEMOGLOBIN 30.4 pg (27.0-34.0); MEAN CORPUSCULAR VOLUME 89.5 fL (80.0-100.0); MEAN PLATELET VOLUME 7.3 fL (7.4-11.0); MONOCYTES # (AUTO) 0.7 x10^3/uL (0.3-0.8); MONOCYTES % (AUTO) 10.8 % (0.0-13.0); NEUTROPHILS % (AUTO) 72.5 % (42.0-75.0); PLATELET COUNT 144 X10^3/uL (150.0-450.0); RED CELL DISTRIBUTION WIDTH 15.2 % (11.6-16.5); WHITE BLOOD COUNT 6.9 X10^3/uL (3.6-10.0)
[2016-10-25 06:58] LABS: ALANINE AMINOTRANSFERASE 9 Units/L (12-78); ALBUMIN 2.8 g/dL (3.4-5.0); ALKALINE PHOSPHATASE 51 Units/L (46-116); ASPARTATE AMINO TRANSFERASE 18 Units/L (15-37); BLOOD UREA NITROGEN 16 mg/dL (7-18); CALCIUM 8.5 mg/dL (8.5-10.1); CARBON DIOXIDE 32.1 mmol/L (21-32); CHLORIDE 95 mmol/L (98-107); COR CA(FOR HYPOALB) 9.5 mg/dL (8.5-10.1); CREATININE 0.72 mg/dL (0.55-1.02); GLUCOSE 75 mg/dL (65-99); SODIUM 130 mmol/L (136-145); TOTAL PROTEIN 6.2 g/dL (6.4-8.2); eGFR BLACK RACES > 60 (>60); eGFR NON BLACK RACES > 60 (>60)
[2016-10-25] MEDS: WELCHOL PO SCH ×2 (08:10→21:07)
[2016-10-25] MEDS: MICRO K EXTEN CAP 10 MEQ PO SCH ×2 (08:37→21:05)
[2016-10-25] MEDS: VIBRAMYCIN PO SCH ×2 (08:37→21:07)
[2016-10-25] MEDS: LASIX IVP SCH ×2 (08:37→21:06)
[2016-10-25] MEDS: MILK OF MAGNESIA PO SCH (08:37)
[2016-10-25] MEDS: VITAMIN C PO SCH (08:38)
[2016-10-25] MEDS: TAB-A-VITE PO SCH (08:38)
[2016-10-25] MEDS: COZAAR PO SCH (08:38)
[2016-10-25] MEDS: MAXIPIME 2 GM in NS 100 ML IV + SPIKE MINIBAG* 100 ML IV SCH ×2 (08:38→18:17)
--- NOTE | 2016-10-25 12:50 | DR.H&P ---
H&P - History & Physical for Day of: H&P Date: 10/25/16 - Chief Complaint Chief Complaint: Mrs. Naik is a 89-year-old white female who was admitted on 813 severe hyponatremia. Patient's sodium gradually improved 1:30 this a.m. Patient continues with moderate diffuse weakness. Patient is more awake and alert. Patient and family refused to be transferred to [place] earlier in the week. Patient and family agreed on a limited DNR. Patient's condition is gradually improving. We'll discuss with case management and PT referral and discharged back to [facility] when stable - Allergies Allergies/Adverse Reactions: Allergies Allergy/AdvReac Type Severity Reaction Status Date / Time clindamycin Allergy Intermediate RASH Verified 10/21/16 11:51 Sulfa (Sulfonamide Allergy Verified 10/21/16 11:51 Antibiotics) - Past Medical History Past Medical History: Anxiety, Arthritis, Asthma, CHF, COPD, Coronary Artery Disease, Depression, Dyslipidemia, Hypertension, Hypothyroidism Additional Medical History: Parkinson's, Atrial Fibrillation - Past Surgical History Surgical History: Hysterectomy, Mastectomy Additional Surgical History: Hernia Repair, Left Mastectomy, toe surgery - Family History Family Medical History: Hypertension - Social History Does patient currently use any type of tobacco product: No Have you used tobacco products in the last 12 months: No Type of Tobacco Use: None Does any household member use tobacco: No Alcohol Use: None Drug Use: None - Medications Home Medications: Doxycycline Hyclate [Vibramycin] 100 mg PO BID 10/21/16 [History Confirmed 10/21] Ipratropium/Albuterol Nebule [DUONEB 0.5 MG/3 MG NEBULE *] 1 inh INH QID PRN [History Confirmed 10/21/16] Levocetirizine Dihydrochloride [Xyzal] 1 tab PO DAILY 10/21/16 [History Confirmed 10/21/16] Magnesium Hydroxide [Milk of Magnesia] 30 ml PO DAILY 10/21/16 [History Confirmed 10/21/16] Ondansetron HCl [ZOFRAN TAB 4 MG *] 1 tab PO PRN PRN 10/21/16 [History Confirmed 10/21/16] - Physical Exam Vital Signs: Temperature 97.5 F Pulse Rate [Apical] 75 Pulse Rate [Brachial] 74 Pulse Rate 58 Respiratory Rate 14 Blood Pressure [Right Arm] 153/88 O2 Sat by Pulse Oximetry 98 Oriented: Person, Other (VERY HARD OF HEARING) - Assessment/Plan (1) Altered mental status Qualifiers: Altered mental status type: A Coma depth: C Coma timing: C Status: Acute (2) Hyponatremia Status: Acute (3) Bradycardia Status: Acute (4) Acute respiratory distress Status: Acute (5) Degenerative joint disease of knee, left Qualifiers: Osteoarthritis type: O Status: Chronic (6) Depression Qualifiers: Depression Type: D Major depression recurrence: M Active/Remission status : A Major depression episode severity: M Psychotic features: P Trimester: T Status: Chronic (7) CHF (congestive heart failure) Qualifiers: Congestive heart failure type: C Congestive heart failure chronicity: C Status: Acute (8) History of atrial fibrillation Status: Chronic (9) Hypothyroidism Qualifiers: Hypothyroidism type: H Status: Chronic (10) Parkinson disease Status: Chronic
--- NOTE | 2016-10-25 12:53 | PCM.PROG ---
Progress Note - Progress Note for Day of Date: 10/25/16 - Subjective Subjective: hisallMrs. Feliz a 89-year-old white female who was admitted on severe hyponatremia. Patient's sodium gradually improved 1:30 this a.m. Patient continues with moderate diffuse weakness. Patient is more awake and alert. Patient and family refused to be transferred to [place] earlier in the week. Patient and family agreed on a limited DNR. Patient's condition is gradually improving. We'll discuss with case management and PT referral and discharged back to group home when stable - Past Medical Family Social History Past Med/Fam/Surg Hx: No changes since H&P Allergies: Allergies clindamycin Allergy (Intermediate, Verified 10/21/16 11:51) RASH Sulfa (Sulfonamide Antibiotics) Allergy (Verified 10/21/16 11:51) - Review of Systems ROS: No change since H&P - Vital Signs and I&O's Vital Signs: Temperature 97.5 F Pulse Rate [Apical] 75 Pulse Rate [Brachial] 74 Pulse Rate 58 Respiratory Rate 14 Blood Pressure [Right Arm] 153/88 O2 Sat by Pulse Oximetry 98 Intake and Output: Intake & Output 10/23/16 10/24/16 10/25/16 10/26/16 11:59 11:59 11:59 11:59 Intake Total 1412 1803 1529 Output Total 2150 3150 3250 Balance -924 -9063 -2202 - Physical Exam Oriented: Person, Other (VERY HARD OF HEARING) Eyes: Normal Ear: Normal Nose: Normal Throat: Normal Respiratory: Diminished, Rales (MILD TO BASES) Cardiovascular: Bradycardia, Edema Tenderness: Epigastric Skin: Decreased Turgur, Wound Musculoskeletal: Back:Lumbar, Motor Deficit Psychiatric: Anxiety Affect: Anxious Speech Pattern: Clear, Appropriate - Laboratory and Diagnostics Result Diagrams: 10/25/16 05:28 10/25/16 05:28 Labs: Laboratory WBC 6.9 X10^3/uL (3.6-10.0) 10/25/16 05:28 RBC 3.60 X10^6/uL (3.5-5.4) 10/25/16 05:28 Hgb 11.0 g/dL (12.0-16.0) L 10/25/16 05:28 Hct 32.2 % (36.0-47.0) L 10/25/16 05:28 MCV 89.5 fL (80.0-100.0) 10/25/16 05:28 MCH 30.4 pg (27.0-34.0) 10/25/16 05:28 MCHC 34.0 g/dL (33.0-35.0) 10/25/16 05:28 RDW 15.2 % (11.6-16.5) 10/25/16 05:28 Plt Count 144 X10^3/uL (150.0-450.0) L 10/25/16 05:28 MPV 7.3 fL (7.4-11.0) L 10/25/16 05:28 Neut % 72.5 % (42.0-75.0) 10/25/16 05:28 Lymph % 14.8 % (21.0-51.0) L 10/25/16 05:28 [place] % 10.8 % (0.0-13.0) 10/25/16 05:28 Eos % 1.7 % (0.9-2.9) 10/25/16 05:28 Baso % 0.2 % (0.2-1.0) 10/25/16 05:28 Neut # 5.0 x10^3/uL (2.2-4.8) H 10/25/16 05:28 Lymph # 1.0 X10^3/uL (1.3-2.9) L 10/25/16 05:28 [place] # 0.7 x10^3/uL (0.3-0.8) 10/25/16 05:28 Eos # 0.1 x10^3/uL (0.0-0.2) 10/25/16 05:28 Baso # 0.0 X10^3/uL (0.0-0.1) 10/25/16 05:28 Absolute Nucleated RBC 0.0 /100WBC 10/25/16 05:28 INR Target Range - 10/25/16 05:28 INR 3.38 (0.8-1.3) H 10/25/16 05:28 Sodium 130 mmol/L (136-145) L 10/25/16 05:28 Corrected Sodium TNP 10/25/16 05:28 Potassium 3.9 mmol/L (3.5-5.1) 10/25/16 05:28 Chloride 95 mmol/L (98-107) L 10/25/16 05:28 Carbon Dioxide 32.1 mmol/L (21-32) H 10/25/16 05:28 BUN 16 mg/dL (7-18) 10/25/16 05:28 Creatinine 0.72 mg/dL (0.55-1.02) 10/25/16 05:28 Est GFR (MDRD) Af Amer > 60 (>60) 10/25/16 05:28 Est GFR (MDRD) Non-Af > 60 (>60) 10/25/16 05:28 Glucose 75 mg/dL (65-99) 10/25/16 05:28 Calcium 8.5 mg/dL (8.5-10.1) 10/25/16 05:28 Corrected Calcium 9.5 mg/dL (8.5-10.1) 10/25/16 05:28 Magnesium 1.5 mg/dL (1.7-2.9) L 10/23/16 05:31 Total Bilirubin 0.50 mg/dL (0.2-1.0) 10/25/16 05:28 AST 18 Units/L (15-37) 10/25/16 05:28 ALT 9 Units/L (12-78) L 10/25/16 05:28 Alkaline Phosphatase 51 Units/L (46-116) 10/25/16 05:28 Creatine Kinase 137 Units/L (26-192) 10/22/16 00:20 CK-MB (CK-2) < 1.0 ng/mL (0-4.0) 10/22/16 00:20 CK/CKMB % Calc 0.7 % (<4) 10/22/16 00:20 Troponin I < 0.02 ng/mL (0-1.5) 10/22/16 00:20 Total Protein 6.2 g/dL (6.4-8.2) L 10/25/16 05:28 Albumin 2.8 g/dL (3.4-5.0) L 10/25/16 05:28 Globulin 3.4 g/dL (2.5-4.5) 10/25/16 05:28 Albumin/Globulin Ratio 0.8 Ratio (1.1-2.1) L 10/25/16 05:28 Specimen Type Clean catch urine 10/21/16 12:19 Urine Color Yellow (YELLOW) 10/21/16 12:19 Urine Appearance Hazy (CLEAR) 10/21/16 12:19 Urine pH 6.0 (5.0 - 8.0) 10/21/16 12:19 Ur Specific [place] 1.010 (1.000-1.030) 10/21/16 12:19 Urine Protein 1+ (NEGATIVE) 10/21/16 12:19 Urine Glucose (UA) Negative (NEGATIVE) 10/21/16 12:19 Urine Ketones Negative (NEGATIVE) 10/21/16 12:19 Urine Occult Blood Negative (NEGATIVE) 10/21/16 12:19 Urine Nitrite Negative (NEGATIVE) 10/21/16 12:19 Urine Bilirubin Negative (NEGATIVE) 10/21/16 12:19 Urine Urobilinogen Normal (NORMAL) 10/21/16 12:19 Ur Leukocyte Esterase 1+ (NEGATIVE) 10/21/16 12:19 Urine RBC 0-2 /HPF (NEGATIVE) 10/21/16 12:19 Urine WBC 3-5 /HPF (NEGATIVE) 10/21/16 12:19 Ur Squamous Epith Cells Negative /HPF (NEGATIVE) 10/21/16 12:19 Urine Bacteria Trace /HPF (NEGATIVE) 10/21/16 12:19 Ur Culture Indicated? No/not indicated 10/21/16 12:19 - Plan (1) Altered mental status Status: Acute Qualifiers: Altered mental status type: A Coma depth: C Coma timing: C Plan: DIFFUSE WEAKNESS, GENTLE HYDRATION. STRICT I & OS, CT HEAD. 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 AM CXR, SUPPLEMENTAL O2, RESP THERAPY. STRICT I & OS, ECHO REPORT ON CHART, STABLE (8) History of atrial fibrillation Status: Chronic Plan: COUMADIN THERAPY (9) Hypothyroidism Status: Chronic Qualifiers: Hypothyroidism type: H (10) Parkinson disease Status: Chronic
[2016-10-25] MEDS: ULTRAM PO PRN (15:27)
[2016-10-25] MEDS: CELEXA PO SCH (21:05)
[2016-10-25] MEDS: COUMADIN TAB 2 MG PO SCH (23:01)
[2016-10-26] MEDS: NS 1000 ML 1,000 ML IV SCH ×2 (01:40→13:39)
[2016-10-26] MEDS: LYRICA CAP 50 MG PO SCH ×3 (05:57→21:36)
[2016-10-26] MEDS: SINEMET (PLAIN) 25/100 MG PO SCH ×3 (05:58→21:36)
[2016-10-26] MEDS: SYNTHROID 150 mcg TAB PO SCH (05:59)
[2016-10-26 06:32] LABS: ALANINE AMINOTRANSFERASE 16 Units/L (12-78); ALBUMIN 2.8 g/dL (3.4-5.0); ALKALINE PHOSPHATASE 50 Units/L (46-116); ASPARTATE AMINO TRANSFERASE 23 Units/L (15-37); BLOOD UREA NITROGEN 14 mg/dL (7-18); CALCIUM 8.8 mg/dL (8.5-10.1); CARBON DIOXIDE 34.3 mmol/L (21-32); CHLORIDE 96 mmol/L (98-107); COR CA(FOR HYPOALB) 9.8 mg/dL (8.5-10.1); CREATININE 0.66 mg/dL (0.55-1.02); GLUCOSE 86 mg/dL (65-99); SODIUM 132 mmol/L (136-145); eGFR BLACK RACES > 60 (>60); eGFR NON BLACK RACES > 60 (>60)
[2016-10-26 06:58] LABS: BASOPHILS % (AUTO) 0.6 % (0.2-1.0); EOSINOPHILS # (AUTO) 0.3 x10^3/uL (0.0-0.2); EOSINOPHILS % (AUTO) 3.7 % (0.9-2.9); HEMATOCRIT 32.1 % (36.0-47.0); LYMPHOCYTES # (AUTO) 0.9 X10^3/uL (1.3-2.9); LYMPHOCYTES % (AUTO) 13.3 % (21.0-51.0); MEAN CORPUSCULAR HEMOGLOBIN 30.4 pg (27.0-34.0); MEAN CORPUSCULAR HGB CONC 34.3 g/dL (33.0-35.0); MEAN CORPUSCULAR VOLUME 88.7 fL (80.0-100.0); MEAN PLATELET VOLUME 6.8 fL (7.4-11.0); MONOCYTES # (AUTO) 0.8 x10^3/uL (0.3-0.8); MONOCYTES % (AUTO) 11.2 % (0.0-13.0); NEUTROPHILS # (AUTO) 5.1 x10^3/uL (2.2-4.8); NEUTROPHILS % (AUTO) 71.2 % (42.0-75.0); PLATELET COUNT 161 X10^3/uL (150.0-450.0); RED BLOOD COUNT 3.62 X10^6/uL (3.5-5.4); RED CELL DISTRIBUTION WIDTH 15.1 % (11.6-16.5); WHITE BLOOD COUNT 7.1 X10^3/uL (3.6-10.0)
--- NOTE | 2016-10-26 08:00 | RAD ---
HISTORY: CHF Study: Single-view chest, done portably Comparison: October 24, 2016 Findings: Cardiac monitoring electrodes are noted on the chest. Port-A-Cath is seen inserted via a subclavian approach with the tip in the lower SVC. There are multiple surgical clips present involving the sudhir on of the left breast. Trachea is midline. There is cardiomegaly with mild pulmonary vascular conges tion. This has improved. Improved aeration is seen involving the right lung with still a small pleur al effusion suspected. The left retrocardiac region is not well penetrated. Osseous structures displ ay no acute abnormality. There is evidence of rotator cuff insufficiency on the right side. IMPRESSION: Cardiomegaly with improving pulmonary vascular congestion. Improved aeration of the right lung is se en with a small pleural effusion. Reported By:
[2016-10-26] MEDS: WELCHOL PO SCH ×2 (08:37→21:36)
[2016-10-26] MEDS: COZAAR PO SCH (08:37)
[2016-10-26] MEDS: MILK OF MAGNESIA PO SCH (08:37)
[2016-10-26] MEDS: VITAMIN C PO SCH (08:37)
[2016-10-26] MEDS: MICRO K EXTEN CAP 10 MEQ PO SCH ×2 (08:37→21:36)
[2016-10-26] MEDS: TAB-A-VITE PO SCH (08:39)
[2016-10-26] MEDS: LASIX IVP SCH ×2 (08:41→21:36)
[2016-10-26] MEDS: VIBRAMYCIN PO SCH ×2 (08:41→21:39)
[2016-10-26] MEDS: MAXIPIME 2 GM in NS 100 ML IV + SPIKE MINIBAG* 100 ML IV SCH (10:09)
[2016-10-26] MEDS: ULTRAM PO PRN (16:32)
[2016-10-26] MEDS: COUMADIN TAB 2 MG PO SCH (21:37)
[2016-10-26] MEDS: CELEXA PO SCH (21:37)
[2016-10-27] MEDS: NS 1000 ML 1,000 ML IV SCH ×2 (06:05→13:50)
[2016-10-27] MEDS: LYRICA CAP 50 MG PO SCH ×4 (06:06→21:00)
[2016-10-27] MEDS: SYNTHROID 150 mcg TAB PO SCH (06:07)
[2016-10-27] MEDS: SINEMET (PLAIN) 25/100 MG PO SCH ×3 (06:07→20:59)
[2016-10-27 06:32] LABS: BASOPHILS # (AUTO) 0.1 X10^3/uL (0.0-0.1); EOSINOPHILS # (AUTO) 0.3 x10^3/uL (0.0-0.2); EOSINOPHILS % (AUTO) 4.5 % (0.9-2.9); HEMATOCRIT 33.7 % (36.0-47.0); HEMOGLOBIN 11.5 g/dL (12.0-16.0); LYMPHOCYTES # (AUTO) 0.9 X10^3/uL (1.3-2.9); LYMPHOCYTES % (AUTO) 13.6 % (21.0-51.0); MEAN CORPUSCULAR HEMOGLOBIN 30.5 pg (27.0-34.0); MEAN CORPUSCULAR HGB CONC 34.2 g/dL (33.0-35.0); MEAN CORPUSCULAR VOLUME 89.3 fL (80.0-100.0); MEAN PLATELET VOLUME 7.1 fL (7.4-11.0); MONOCYTES # (AUTO) 0.7 x10^3/uL (0.3-0.8); MONOCYTES % (AUTO) 11.3 % (0.0-13.0); NEUTROPHILS # (AUTO) 4.5 x10^3/uL (2.2-4.8); NEUTROPHILS % (AUTO) 69.6 % (42.0-75.0); PLATELET COUNT 187 X10^3/uL (150.0-450.0); RED BLOOD COUNT 3.78 X10^6/uL (3.5-5.4); RED CELL DISTRIBUTION WIDTH 15.1 % (11.6-16.5); WHITE BLOOD COUNT 6.5 X10^3/uL (3.6-10.0)
[2016-10-27 06:37] LABS: ALANINE AMINOTRANSFERASE 12 Units/L (12-78); ALBUMIN 2.8 g/dL (3.4-5.0); ALKALINE PHOSPHATASE 50 Units/L (46-116); ASPARTATE AMINO TRANSFERASE 18 Units/L (15-37); BLOOD UREA NITROGEN 13 mg/dL (7-18); CALCIUM 8.5 mg/dL (8.5-10.1); CARBON DIOXIDE 35.7 mmol/L (21-32); CHLORIDE 94 mmol/L (98-107); COR CA(FOR HYPOALB) 9.5 mg/dL (8.5-10.1); GLUCOSE 102 mg/dL (65-99); SODIUM 134 mmol/L (136-145); eGFR BLACK RACES > 60 (>60); eGFR NON BLACK RACES > 60 (>60)
[2016-10-27] MEDS: MAXIPIME 2 GM in NS 100 ML IV + SPIKE MINIBAG* 100 ML IV SCH (09:03)
[2016-10-27] MEDS: LASIX IVP SCH ×2 (09:03→20:59)
[2016-10-27] MEDS: MICRO K EXTEN CAP 10 MEQ PO SCH ×2 (09:04→20:57)
[2016-10-27] MEDS: COZAAR PO SCH (09:04)
[2016-10-27] MEDS: VIBRAMYCIN PO SCH ×2 (09:04→20:56)
[2016-10-27] MEDS: MILK OF MAGNESIA PO SCH (09:05)
[2016-10-27] MEDS: VITAMIN C PO SCH (09:05)
[2016-10-27] MEDS: WELCHOL PO SCH ×2 (09:05→20:57)
[2016-10-27] MEDS: TAB-A-VITE PO SCH (09:05)
[2016-10-27] MEDS: ULTRAM PO PRN (19:02)
[2016-10-27] MEDS: CELEXA PO SCH (20:56)
[2016-10-27] MEDS: COUMADIN TAB 2 MG PO SCH (21:00)
[2016-10-27 21:35] VITALS: BP 144/66
== END 2016-10-27 21:18 | DRG 641 ==
LOC: ER 11:52 → ICU 15:11
PROVIDERS: ADMIT Obstetrics & Gynecology Obstetrics; ATTEND Internal Medicine
DX: E87.1 Hypo-osmolality and hyponatremia (principal); E87.5 Hyperkalemia; R41.82 Altered mental status, unspecified; R00.1 Bradycardia, unspecified; L03.115 Cellulitis of right lower limb; L03.116 Cellulitis of left lower limb; E78.2 Mixed hyperlipidemia; I10 Essential (primary) hypertension; E03.8 Other specified hypothyroidism; M13.89 Other specified arthritis, multiple sites; R94.31 Abnormal electrocardiogram [ECG] [EKG]; R53.1 Weakness; R06.00 Dyspnea, unspecified; F32.89 Other specified depressive episodes; M17.12 Unilateral primary osteoarthritis, left knee; G20 Parkinson's disease; I50.9 Heart failure, unspecified; E86.0 Dehydration; I95.89 Other hypotension; R26.89 Other abnormalities of gait and mobility; R13.11 Dysphagia, oral phase; Z79.01 Long term (current) use of anticoagulants
CPT/HCPCS: 36415; 51702; 70450; 71010; 80053; 81001; 82550; 82553; 83735; 84132; 84484; 85025; 85610; 93005; 93010; 93041; 93306; 94640; 96365; 96367; 99284; 99285; A4216; A4222; S0181; J0692; J1940; J2920; J7613; J7620

== ENCOUNTER → 2016-11-21 | Outpatient (CLI) | payer OTHER, MEDICAID ==
[2016-10-27 21:35] VITALS: BP 144/66
--- NOTE | 2016-11-21 14:44 | RAD ---
HISTORY: Cough, congestion Study: Single view of the chest Comparison: October 26, 2016 Findings: The patient is slightly rotated. The cardiac silhouette is unremarkable. The lungs are clear withou t focal infiltrate or effusion. A right-sided port is again noted. IMPRESSION: 1. No acute cardiopulmonary disease. Reported By:
== END | disposition home or self-care (01) | DRG 204 ==
LOC: RAD 13:35
PROVIDERS: ATTEND Internal Medicine
DX: R05 Cough (principal); R09.89 Other specified symptoms and signs involving the circulatory and respiratory systems
CPT/HCPCS: 71010

== ENCOUNTER 2016-12-13 03:51 | Emergency (ER) | payer OTHER, MEDICAID ==
[2016-12-13 04:02] VITALS: BP 153/74; BMI 36.8
[2016-12-13] MEDS ORDERED: SOLU-Medrol 125 MG VIAL IVP ONE (04:05)
[2016-12-13] MEDS ORDERED: DUONEB 0.5 MG/3 MG ONE ×2 (04:07→06:09)
[2016-12-13] MEDS ORDERED: DECADRON JET NEB (RESP USE) NEB ONE ×2 (04:07→04:14)
[2016-12-13] MEDS ORDERED: SOLU-Medrol 125 MG VIAL ONE (04:08)
[2016-12-13] MEDS: DUONEB 0.5 MG/3 MG NEB SCH ×2 (04:14→04:37)
[2016-12-13] MEDS ORDERED: DUONEB 0.5 MG/3 MG NEB ONE ×2 (04:14→06:03)
[2016-12-13] MEDS: DECADRON JET NEB (RESP USE) NEB SCH ×2 (04:14→04:36)
[2016-12-13 04:37] LABS: ALANINE AMINOTRANSFERASE 12 Units/L (12-78); ALBUMIN 2.7 g/dL (3.4-5.0); ALKALINE PHOSPHATASE 80 Units/L (46-116); ASPARTATE AMINO TRANSFERASE 19 Units/L (15-37); BLOOD UREA NITROGEN 9 mg/dL (7-18); CARBON DIOXIDE 33.8 mmol/L (21-32); CHLORIDE 94 mmol/L (98-107); COR NA(FOR HYPERGLY) 130 mmol/L (136-145); CREATININE 0.68 mg/dL (0.55-1.02); SODIUM 129 mmol/L (136-145); TOTAL PROTEIN 6.7 g/dL (6.4-8.2); eGFR BLACK RACES > 60 (>60); eGFR NON BLACK RACES > 60 (>60)
[2016-12-13 04:38] LABS: BASOPHILS # (AUTO) 0.1 X10^3/uL (0.0-0.1); BASOPHILS % (AUTO) 0.6 % (0.2-1.0); EOSINOPHILS % (AUTO) 5.5 % (0.9-2.9); HEMOGLOBIN 12.3 g/dL (12.0-16.0); LYMPHOCYTES # (AUTO) 0.8 X10^3/uL (1.3-2.9); LYMPHOCYTES % (AUTO) 4.4 % (21.0-51.0); MEAN CORPUSCULAR HEMOGLOBIN 29.2 pg (27.0-34.0); MEAN CORPUSCULAR HGB CONC 33.2 g/dL (33.0-35.0); MEAN PLATELET VOLUME 7.8 fL (7.4-11.0); MONOCYTES % (AUTO) 5.5 % (0.0-13.0); PLATELET COUNT 288 X10^3/uL (150.0-450.0); RED CELL DISTRIBUTION WIDTH 15.3 % (11.6-16.5); WHITE BLOOD COUNT 17.8 X10^3/uL (3.6-10.0)
--- NOTE | 2016-12-13 05:15 | RAD ---
EXAM: Chest X-ray INDICATION: Wheezing COMPARISION: No prior TECHNIQUE: AP, single view FINDINGS: The lungs are clear in the lung volumes are within normal limits. No pleural effusion or pneumothorax . The cardiac silhouette and mediastinum are normal. The regional skeleton is intact. Right port cat heter tip is in superior vena cava. IMPRESSION: Normal Chest X-Ray Reported By:
--- NOTE | 2016-12-13 05:23 | DR.GENAD ---
HPI - PCP Primary Care Physician: LIT - Complaint/Symptoms Chief Complaint:: "PATIENT OXYGEN SATURATION IS ANYWHERE FROM 69-92% ON 2 1/2 LITERS NASAL CANNULA. PATIENT HAS EXPIRATORY WHEEZING. PATIENT JUST WOKE UP SAYING SHE COULDN'T BREATHE." - Source History Provided: Custodial - Mode of Arrival Mode of Arrival: Stretcher - Timing Onset of Chief Complaint: 12/13/16 PMH - PMH Past Medical History: Yes Past Medical History: Arthritis, COPD, Depression, Dyslipidemia, Hypertension, Hypothyroidism Past Surgical History: Yes Surgical History: Hysterectomy, Mastectomy - Family History History of Family Medical Conditions: Yes Family Medical History: Hypertension - Social History Does patient currently use any type of tobacco product: No Have you used tobacco products in the last 12 months: No Type of Tobacco Use: None Alcohol Use: None Do you use any recreational Drugs:: No Lives With: Other Lives Where: Custodial - infectious screening Have you traveled outside the country in the last 6 months?: No Isolation: Standard ROS - Review of Systems Eyes: No Symptoms Reported ENTM: No Symptoms Reported Respiratoy: Wheezing Cardiovascular: No Symptoms Reported Gastrointestinal/Abdominal: No Symptoms Reported Genitourinary: No Symptoms Reported Neurological: No Symptoms Reported Musculoskeletal: No Symptoms Reported Integumentary: No Symptoms Reported Hematologic/Lymphatic: No Symptoms Reported Endocrine: No Symptoms Reported Psychiatric: No Symptoms Reported All Other Systems: Reviewed and Negative PE - Vital Signs Vitals: Temperature 97.7 F Pulse Rate 75 Respiratory Rate 22 Blood Pressure [Right Calf] 123/72 Blood Pressure [Left Calf] 131/59 Blood Pressure [Right Thigh] 109/58 Blood Pressure [Right Arm] 144/66 Blood Pressure 153/74 O2 Sat by Pulse Oximetry 95 - General General Appearance: Alert - Head Head Exam: Normal Inspection, Atraumatic - Eyes Eye exam: Normal Appearance, PERRL, EOMI - ENT ENT Exam: Normal Exam External Ear Exam: Normal External Inspection TM/Canal Exam: Bilateral Normal Nose Exam: Normal Nose Exam Mouth Exam: Normal Inspection Throat Exam: Normal Inspection - Neck Neck Exam: Normal Inspection, Full ROM - Chest Chest Inspection: Normal Inspection - Respiratory Respiratory Exam: Normal Lung Sounds Bilat Respiratory Exam: Bilateral Clear to Auscultation - Cardiovascular Cardiovascular Exam: Regular Rate, Normal Rhythm - Abdominal Exam Abdominal Exam: Normal Inspection, Normal Bowel Sounds Abdominal Tenderness: negative: RUQ, RLQ, LUQ, LLQ, Epigastrium, Suprapubic, Diffuse, Mild, Moderate, Severe, Other - Extremities Extremities Exam: Normal Inspection, Full ROM - Back Back Exam: Normal Inspection, Full ROM - Neurologic Neurological Exam: Alert, Oriented X3, CN II-XII Intact - Psychiatric Psychiatric Exam: Normal Affect, Normal Mood - Skin Skin Exam: Warm, Dry, Intact Course - Treatment Treatment: Duo neb x 2, pulse increased to 98-99 % s/p treatment on 2.5L (her baseline) - Reevaluation 1st: Improved ROR - Labs Reviewed Laboratory Results Reviewed?: Yes (Hyponatremia corrected to 130) Result Diagrams: 12/13/16 04:15 12/13/16 04:15 Laboratory: WBC 17.8 X10^3/uL (3.6-10.0) H 12/13/16 04:15 RBC 4.20 X10^6/uL (3.5-5.4) 12/13/16 04:15 Hgb 12.3 g/dL (12.0-16.0) 12/13/16 04:15 Hct 37.0 % (36.0-47.0) 12/13/16 04:15 MCV 88.0 fL (80.0-100.0) 12/13/16 04:15 MCH 29.2 pg (27.0-34.0) 12/13/16 04:15 MCHC 33.2 g/dL (33.0-35.0) 12/13/16 04:15 RDW 15.3 % (11.6-16.5) 12/13/16 04:15 Plt Count 288 X10^3/uL (150.0-450.0) 12/13/16 04:15 MPV 7.8 fL (7.4-11.0) 12/13/16 04:15 Neut % 84.0 % (42.0-75.0) H 12/13/16 04:15 Lymph % 4.4 % (21.0-51.0) L 12/13/16 04:15 [place] % 5.5 % (0.0-13.0) 12/13/16 04:15 Eos % 5.5 % (0.9-2.9) H 12/13/16 04:15 Baso % 0.6 % (0.2-1.0) 12/13/16 04:15 Neut # 15.0 x10^3/uL (2.2-4.8) H 12/13/16 04:15 Lymph # 0.8 X10^3/uL (1.3-2.9) L 12/13/16 04:15 [place] # 1.0 x10^3/uL (0.3-0.8) H 12/13/16 04:15 Eos # 1.0 x10^3/uL (0.0-0.2) H 12/13/16 04:15 Baso # 0.1 X10^3/uL (0.0-0.1) 12/13/16 04:15 Absolute Nucleated RBC 0.0 /100WBC 12/13/16 04:15 Sodium 129 mmol/L (136-145) L 12/13/16 04:15 Corrected Sodium 130 mmol/L (136-145) L 12/13/16 04:15 Potassium 4.0 mmol/L (3.5-5.1) 12/13/16 04:15 Chloride 94 mmol/L (98-107) L 12/13/16 04:15 Carbon Dioxide 33.8 mmol/L (21-32) H 12/13/16 04:15 BUN 9 mg/dL (7-18) 12/13/16 04:15 Creatinine 0.68 mg/dL (0.55-1.02) 12/13/16 04:15 Est GFR (MDRD) Af Amer > 60 (>60) 12/13/16 04:15 Est GFR (MDRD) Non-Af > 60 (>60) 12/13/16 04:15 Glucose 139 mg/dL (65-99) H 12/13/16 04:15 Calcium 9.0 mg/dL (8.5-10.1) 12/13/16 04:15 Corrected Calcium 10.0 mg/dL (8.5-10.1) 12/13/16 04:15 Total Bilirubin 0.40 mg/dL (0.2-1.0) 12/13/16 04:15 AST 19 Units/L (15-37) 12/13/16 04:15 ALT 12 Units/L (12-78) 12/13/16 04:15 Alkaline Phosphatase 80 Units/L (46-116) 12/13/16 04:15 Total Protein 6.7 g/dL (6.4-8.2) 12/13/16 04:15 Albumin 2.7 g/dL (3.4-5.0) L 12/13/16 04:15 Globulin 4.0 g/dL (2.5-4.5) 12/13/16 04:15 Albumin/Globulin Ratio 0.7 Ratio (1.1-2.1) L 12/13/16 04:15 - XRAY XRAY Interpreted by: Radiologist (Chest: clear) - Diagnosis Discharge Problem: Acute bronchospasm, Hyponatremia - Discharge Plan Condition: Stable - Follow ups/Referrals Follow ups/Referrals: GLADYS MURRIETA [Primary Care Provider] - 3 days - Instructions Instructions: Bronchospasm, Adult
== END 2016-12-13 07:49 | disposition home or self-care (01) ==
LOC: ER 03:51
DX: J98.01 Acute bronchospasm (principal); E87.1 Hypo-osmolality and hyponatremia
CPT/HCPCS: 36415; 36591; 71010; 80048; 80053; 85025; 94640; 96365; 96374; 99283; A4222; J2930; J7620

== ENCOUNTER → 2016-12-20 | Outpatient (CLI) | payer OTHER, MEDICAID ==
[2016-12-13 04:02] VITALS: BP 153/74
--- NOTE | 2016-12-20 16:32 | VAS ---
HISTORY: Redness and pain of the right arm Study: Right upper extremity venous Doppler ultrasound Comparison: No priors Technique: Grayscale, color and duplex Doppler imaging of the veins of the right upper extremity are provided. Within the veins is amenable to compression, compression and augmentation maneuvers were al so performed. Findings: No evidence of venous thrombosis is seen. IMPRESSION: As above. Reported By:
== END | disposition home or self-care (01) ==
LOC: RAD 13:39
PROVIDERS: ATTEND Internal Medicine
DX: M79.621 Pain in right upper arm (principal); L53.8 Other specified erythematous conditions
CPT/HCPCS: 93971

== ENCOUNTER 2016-12-26 16:35 | Inpatient (IN) | payer OTHER, MEDICAID ==
--- NOTE | 2016-12-26 18:30 | DR.H&P ---
H&P - History & Physical for Day of: H&P Date: 12/26/16 - Chief Complaint Chief Complaint: cough, mild resp distress - Allergies Allergies/Adverse Reactions: Allergies Allergy/AdvReac Type Severity Reaction Status Date / Time clindamycin Allergy Intermediate RASH Verified 12/13/16 03:59 Sulfa (Sulfonamide Allergy Verified 12/13/16 03:59 Antibiotics) - History of Present Illness History of Present Illness: patient is a 89-year-old white female, resident of [facility]. Patient is a direct admit after failing to improve with outpatient therapy for bronchitis-like symptoms. Patient has had cough and congestion for over a week. Patient is on respiratory therapy as well as Robitussin cough syrup without improvement. Patient had a chest x-ray which revealed an infiltrate suggesting possible pneumonia. Plan to admit for further evaluation. Will obtain blood cultures and sputum culture. We'll start IV antibiotics as well as respiratory therapy. Obtain admission labs and chest x-ray. We will resume patient's home medication regimen - Past Medical History Past Medical History: Arthritis, COPD, Depression, Dyslipidemia, Hypertension, Hypothyroidism Additional Medical History: Parkinson's, Atrial Fibrillation - Past Surgical History Surgical History: Hysterectomy, Mastectomy Additional Surgical History: Hernia Repair, Left Mastectomy, toe surgery - Family History Family Medical History: Hypertension - Social History Does patient currently use any type of tobacco product: No Have you used tobacco products in the last 12 months: No Type of Tobacco Use: None Does any household member use tobacco: No Alcohol Use: None Drug Use: None - Review of Systems Constitutional: Weakness Eyes: No Symptoms Reported ENT: No Symptoms Reported Respiratory: Cough, Wheezing Cardiovascular: No Symptoms Reported Gastrointestinal: No Symptoms Reported Genitourinary: Incontinence Musculoskeletal: Shoulder Pain, Back Pain, Leg Pain Skin: No Symptoms Reported Neurological: Weakness - Physical Exam Vital Signs: Blood Pressure [Right Calf] 123/72 Blood Pressure [Left Calf] 131/59 Blood Pressure [Right Thigh] 109/58 Blood Pressure [Right Arm] 144/66 Blood Pressure 153/74 Oriented: Person Eyes: Normal Ear: Normal Nose: Normal Throat: Normal Respiratory: Rhonchi Throughout Cardiovascular: Normal Auscultation: Bowel Sounds: Normal Palpation: Normal Tenderness: Normal Skin: Decreased Turgur Musculoskeletal: Back:Lumbar, Motor Deficit, Sensory Deficit, Instability Mood Description: Calm Speech Pattern: Appropriate - Assessment/Plan (1) Pneumonia Status: Acute Plan: plan to admit, pneumonia pathway, admission labs sputum and blood cultures , respiratory therapy and IV antibiotics. Repeat a.m. labs and resume home medication. (2) Acute respiratory distress Status: Acute (3) CHF (congestive heart failure) Status: Acute (4) Degenerative joint disease of knee, left Status: Chronic (5) Essential hypertension Status: Chronic (6) Parkinson disease Status: Chronic
[2016-12-26] MEDS ORDERED: TUSSIONEX PENNKINETIC SUSP PO PRN (19:13)
[2016-12-26 20:12] VITALS: BMI 35.3
[2016-12-26 20:12] LABS: BASOPHILS # (AUTO) 0.1 X10^3/uL (0.0-0.1); BASOPHILS % (AUTO) 0.7 % (0.2-1.0); EOSINOPHILS # (AUTO) 1.2 x10^3/uL (0.0-0.2); EOSINOPHILS % (AUTO) 10.9 % (0.9-2.9); HEMATOCRIT 32.2 % (36.0-47.0); HEMOGLOBIN 10.9 g/dL (12.0-16.0); LYMPHOCYTES # (AUTO) 1.3 X10^3/uL (1.3-2.9); LYMPHOCYTES % (AUTO) 11.7 % (21.0-51.0); MEAN CORPUSCULAR HEMOGLOBIN 29.5 pg (27.0-34.0); MEAN CORPUSCULAR HGB CONC 33.8 g/dL (33.0-35.0); MEAN CORPUSCULAR VOLUME 87.3 fL (80.0-100.0); MEAN PLATELET VOLUME 7.7 fL (7.4-11.0); MONOCYTES # (AUTO) 1.1 x10^3/uL (0.3-0.8); MONOCYTES % (AUTO) 9.9 % (0.0-13.0); NEUTROPHILS # (AUTO) 7.3 x10^3/uL (2.2-4.8); NEUTROPHILS % (AUTO) 66.8 % (42.0-75.0); PLATELET COUNT 268 X10^3/uL (150.0-450.0); RED BLOOD COUNT 3.69 X10^6/uL (3.5-5.4); RED CELL DISTRIBUTION WIDTH 16.2 % (11.6-16.5); WHITE BLOOD COUNT 10.8 X10^3/uL (3.6-10.0)
[2016-12-26 20:24] LABS: ALANINE AMINOTRANSFERASE 6 Units/L (12-78); ALBUMIN 2.4 g/dL (3.4-5.0); ALKALINE PHOSPHATASE 69 Units/L (46-116); ASPARTATE AMINO TRANSFERASE 15 Units/L (15-37); BLOOD UREA NITROGEN 7 mg/dL (7-18); CALCIUM 8.8 mg/dL (8.5-10.1); CHLORIDE 91 mmol/L (98-107); COR CA(FOR HYPOALB) 10.1 mg/dL (8.5-10.1); COR NA(FOR HYPERGLY) 129 mmol/L (136-145); CREATININE 0.81 mg/dL (0.55-1.02); SODIUM 128 mmol/L (136-145); TOTAL PROTEIN 6.3 g/dL (6.4-8.2); eGFR BLACK RACES > 60 (>60); eGFR NON BLACK RACES > 60 (>60)
[2016-12-26] MEDS: DUONEB 0.5 MG/3 MG NEB SCH ×2 (20:28→21:20)
[2016-12-26] MEDS ORDERED: BUTT CREAM (COMPOUND) TOP PRN (20:38)
[2016-12-26] MEDS: ROBITUSSIN DM PO SCH (21:07)
[2016-12-26] MEDS: ZOSYN VIAL 4.5 GM 4.5 GM in NS 100 ML IV + SPIKE MINIBAG* 100 ML IV SCH ×2 (21:07→23:22)
[2016-12-26] MEDS ORDERED: NS 1/2 1000 ML IV 1,000 ML IV ONE (21:11)
[2016-12-26] MEDS: NS 1/2 1000 ML IV 1,000 ML IV SCH (21:12)
[2016-12-26] MEDS ORDERED: SALINE 3% 15 ML NEB TX NEB ONE ×2 (21:22→21:30)
[2016-12-27] MEDS: DUONEB 0.5 MG/3 MG NEB SCH ×6 (01:05→20:14)
[2016-12-27 04:39] LABS: BILIRUBIN,URINE NEGATIVE (NEGATIVE); BLOOD/HEMOGLOBIN,URINE NEGATIVE (NEGATIVE); GLUCOSE, URINE NEGATIVE (NEGATIVE); KETONES,URINE NEGATIVE (NEGATIVE); LEUKOCYTE ESTERASE ,URINE NEGATIVE (NEGATIVE); NITRITES,URINE NEGATIVE (NEGATIVE); PROTEIN,URINE NEGATIVE (NEGATIVE); UROBILINOGEN,URINE NORMAL (NORMAL)
[2016-12-27 04:49] LABS: APPEARANCE,URINE CLEAR (CLEAR); BACTERIA,URINE NEGATIVE /HPF (NEGATIVE); COLOR,URINE PALE YELLOW (YELLOW); RBC,URINE 0-3 /HPF (NEGATIVE); SQUAMOUS EPITHELIAL CELL,UR NEGATIVE /HPF (NEGATIVE)
[2016-12-27 05:16] LABS: BASOPHILS # (AUTO) 0.1 X10^3/uL (0.0-0.1); EOSINOPHILS # (AUTO) 0.9 x10^3/uL (0.0-0.2); EOSINOPHILS % (AUTO) 9.5 % (0.9-2.9); HEMOGLOBIN 11.1 g/dL (12.0-16.0); LYMPHOCYTES # (AUTO) 0.8 X10^3/uL (1.3-2.9); LYMPHOCYTES % (AUTO) 8.3 % (21.0-51.0); MEAN CORPUSCULAR HEMOGLOBIN 29.4 pg (27.0-34.0); MEAN CORPUSCULAR HGB CONC 33.6 g/dL (33.0-35.0); MEAN CORPUSCULAR VOLUME 87.5 fL (80.0-100.0); MEAN PLATELET VOLUME 7.9 fL (7.4-11.0); NEUTROPHILS # (AUTO) 6.6 x10^3/uL (2.2-4.8); NEUTROPHILS % (AUTO) 70.2 % (42.0-75.0); PLATELET COUNT 252 X10^3/uL (150.0-450.0); RED BLOOD COUNT 3.78 X10^6/uL (3.5-5.4); RED CELL DISTRIBUTION WIDTH 16.2 % (11.6-16.5); WHITE BLOOD COUNT 9.4 X10^3/uL (3.6-10.0)
[2016-12-27 05:28] LABS: ALANINE AMINOTRANSFERASE 21 Units/L (12-78); ALBUMIN 2.4 g/dL (3.4-5.0); ALKALINE PHOSPHATASE 67 Units/L (46-116); ASPARTATE AMINO TRANSFERASE 18 Units/L (15-37); BLOOD UREA NITROGEN 8 mg/dL (7-18); CARBON DIOXIDE 35.5 mmol/L (21-32); CHLORIDE 94 mmol/L (98-107); COR CA(FOR HYPOALB) 10.3 mg/dL (8.5-10.1); SODIUM 131 mmol/L (136-145); TOTAL PROTEIN 6.3 g/dL (6.4-8.2); eGFR BLACK RACES > 60 (>60); eGFR NON BLACK RACES > 60 (>60)
[2016-12-27] MEDS: ZOSYN VIAL 4.5 GM 4.5 GM in NS 100 ML IV + SPIKE MINIBAG* 100 ML IV SCH ×3 (05:37→21:47)
--- NOTE | 2016-12-27 06:45 | RAD ---
HISTORY: Fever, shortness of breath Study: Chest AP portable Comparison: 12/25/2016 Findings: The patient is rotated to the left. There is poor present on the right. The heart is mildly enlarged. No congestive heart failure is noted. The lungs are well inflated. No definite infiltrates are ident ified. The right upper lobe is clear. No pleural effusions are identified. The bony thorax is unremar kable with the exception of bilateral glenohumeral degenerative joint disease and bilateral chronic r otator cuff disease. IMPRESSION: Mild cardiomegaly without congestive heart failure Lungs clear Reported By:
[2016-12-27] MEDS: PULMICORT NEB TX 0.5 MG NEB SCH ×2 (08:28→20:14)
[2016-12-27] MEDS ORDERED: PULMICORT NEB TX 0.5 MG NEB SCH (09:00)
[2016-12-27] MEDS: LEVAQUIN PREMIX IV 750 MG 750 MG/150 ML BAG IV SCH (09:37)
[2016-12-27] MEDS: ROBITUSSIN DM PO SCH ×4 (09:37→21:46)
[2016-12-27] MEDS ORDERED: LANTISEPTIC ONE (10:42)
[2016-12-27] MEDS ORDERED: NYSTATIN POWDER ONE (10:43)
[2016-12-27] MEDS ORDERED: TRAMADOL HCL 50 MG PO PRN (13:17)
[2016-12-27] MEDS ORDERED: ZOFRAN TAB 4 MG PO PRN (13:17)
[2016-12-27] MEDS ORDERED: XANAX PO PRN (13:17)
[2016-12-27] MEDS ORDERED: DUONEB 0.5 MG/3 MG NEB PRN (13:17)
[2016-12-27] MEDS ORDERED: ULTRAM PO PRN (13:38)
[2016-12-27] MEDS ORDERED: PATIENT'S HOME MEDICATION (Pregabalin [Lyrica] 50 MG) PO SCH (14:00)
[2016-12-27] MEDS: LANTISEPTIC TOP SCH ×2 (14:20→21:50)
[2016-12-27] MEDS: LYRICA CAP 50 MG PO SCH ×2 (14:30→21:41)
[2016-12-27] MEDS: SOLU-Medrol 40 MG VIAL IVP SCH ×2 (14:30→21:43)
[2016-12-27] MEDS: SINEMET (PLAIN) 25/100 MG PO SCH ×2 (14:30→21:48)
[2016-12-27] MEDS ORDERED: POTASSIUM CHLORIDE 10 MEQ PO SCH (21:00)
[2016-12-27] MEDS ORDERED: CELEXA PO SCH (21:00)
[2016-12-27] MEDS ORDERED: CITALOPRAM HYDROBROMIDE 10 MG PO SCH (21:00)
[2016-12-27] MEDS: MICRO K EXTEN CAP 10 MEQ PO SCH (21:41)
[2016-12-27] MEDS: WELCHOL PO SCH (21:43)
[2016-12-27] MEDS: ELIQUIS PO SCH (21:44)
[2016-12-27] MEDS: NYSTATIN POWDER TOP SCH (21:47)
[2016-12-27] MEDS: NS 1/2 1000 ML IV 1,000 ML IV SCH (23:24)
[2016-12-28] MEDS: DUONEB 0.5 MG/3 MG NEB SCH ×4 (01:05→12:06)
[2016-12-28 05:46] LABS: BASOPHILS % (AUTO) 0.1 % (0.2-1.0); EOSINOPHILS % (AUTO) 0.1 % (0.9-2.9); HEMOGLOBIN 11.4 g/dL (12.0-16.0); LYMPHOCYTES # (AUTO) 0.5 X10^3/uL (1.3-2.9); LYMPHOCYTES % (AUTO) 6.4 % (21.0-51.0); MEAN CORPUSCULAR HEMOGLOBIN 29.9 pg (27.0-34.0); MEAN CORPUSCULAR HGB CONC 34.5 g/dL (33.0-35.0); MEAN CORPUSCULAR VOLUME 86.4 fL (80.0-100.0); MEAN PLATELET VOLUME 8.1 fL (7.4-11.0); MONOCYTES # (AUTO) 0.3 x10^3/uL (0.3-0.8); MONOCYTES % (AUTO) 3.8 % (0.0-13.0); NEUTROPHILS # (AUTO) 6.6 x10^3/uL (2.2-4.8); NEUTROPHILS % (AUTO) 89.6 % (42.0-75.0); PLATELET COUNT 262 X10^3/uL (150.0-450.0); RED BLOOD COUNT 3.82 X10^6/uL (3.5-5.4); RED CELL DISTRIBUTION WIDTH 15.9 % (11.6-16.5); WHITE BLOOD COUNT 7.3 X10^3/uL (3.6-10.0)
[2016-12-28] MEDS: ZOSYN VIAL 4.5 GM 4.5 GM in NS 100 ML IV + SPIKE MINIBAG* 100 ML IV SCH ×2 (05:50→14:12)
[2016-12-28] MEDS: SOLU-Medrol 40 MG VIAL IVP SCH ×2 (05:50→14:12)
[2016-12-28] MEDS: SINEMET (PLAIN) 25/100 MG PO SCH ×2 (05:51→14:11)
[2016-12-28] MEDS: LANTISEPTIC TOP SCH ×2 (05:51→14:12)
[2016-12-28] MEDS: LYRICA CAP 50 MG PO SCH ×2 (05:52→14:12)
[2016-12-28 06:00] LABS: ALANINE AMINOTRANSFERASE 13 Units/L (12-78); ALBUMIN 2.6 g/dL (3.4-5.0); ALKALINE PHOSPHATASE 65 Units/L (46-116); ASPARTATE AMINO TRANSFERASE 17 Units/L (15-37); BLOOD UREA NITROGEN 10 mg/dL (7-18); CALCIUM 9.2 mg/dL (8.5-10.1); CARBON DIOXIDE 31.4 mmol/L (21-32); CHLORIDE 93 mmol/L (98-107); COR CA(FOR HYPOALB) 10.3 mg/dL (8.5-10.1); COR NA(FOR HYPERGLY) 132 mmol/L (136-145); SODIUM 130 mmol/L (136-145); TOTAL PROTEIN 6.8 g/dL (6.4-8.2); eGFR BLACK RACES > 60 (>60); eGFR NON BLACK RACES 55 (>60)
[2016-12-28] MEDS ORDERED: SYNTHROID 150 mcg TAB PO SCH (07:00)
[2016-12-28] MEDS ORDERED: PATIENT'S HOME MEDICATION (Multivit-Min/Fa/Lycopen/Lutein [Centrum Silver Tablet] 1 TAB) PO SCH (09:00)
[2016-12-28] MEDS ORDERED: LOSARTAN POTASSIUM 100 MG PO SCH (09:00)
[2016-12-28] MEDS ORDERED: HYDROCHLOROTHIAZIDE 12.5 MG CAP PO SCH (09:00)
[2016-12-28] MEDS ORDERED: ZyrTEC TAB 10 MG PO SCH (09:00)
[2016-12-28] MEDS ORDERED: VITAMIN C PO SCH (09:00)
[2016-12-28] MEDS ORDERED: MILK OF MAGNESIA PO SCH (09:00)
[2016-12-28] MEDS ORDERED: ZINC SULFATE PO SCH (09:00)
[2016-12-28] MEDS ORDERED: PATIENT'S HOME MEDICATION (Levocetirizine Dihydrochloride [Xyzal] 1 TAB) PO SCH (09:00)
[2016-12-28] MEDS ORDERED: ZINC 100 MG PO SCH (09:00)
[2016-12-28] MEDS ORDERED: LEVOTHYROXINE SODIUM 150 MCG PO SCH (09:00)
[2016-12-28] MEDS ORDERED: TAB-A-VITE PO SCH (09:00)
[2016-12-28] MEDS ORDERED: LASIX PO SCH (09:00)
[2016-12-28] MEDS ORDERED: COZAAR PO SCH (09:00)
[2016-12-28] MEDS: PULMICORT NEB TX 0.5 MG NEB SCH (09:06)
[2016-12-28] MEDS: WELCHOL PO SCH (09:12)
[2016-12-28] MEDS: ROBITUSSIN DM PO SCH ×2 (09:13→14:11)
[2016-12-28] MEDS: ELIQUIS PO SCH (09:14)
[2016-12-28] MEDS: NYSTATIN POWDER TOP SCH (09:14)
[2016-12-28] MEDS: MICRO K EXTEN CAP 10 MEQ PO SCH (09:14)
--- NOTE | 2016-12-28 09:20 | RAD ---
HISTORY: Congestive heart failure Study: Chest AP portable Comparison: 12/26/2016 Findings: There is a poor present on the right. The heart is enlarged. No congestive heart failure is noted. No acute alveolar infiltrates or pleural effusions are identified. The bony thorax is unremarkable with the exception of bilateral glenohumeral degenerative joint disease and chronic rotator cuff disease. IMPRESSION: Cardiomegaly without congestive heart failure Lungs clear Reported By:
[2016-12-28] MEDS: LEVAQUIN PREMIX IV 750 MG 750 MG/150 ML BAG IV SCH (09:40)
[2016-12-28 16:07] VITALS: BP 133/67
== END 2016-12-28 16:50 | DRG 194 ==
LOC: MED/SURG 16:35
PROVIDERS: ADMIT Internal Medicine; ATTEND Internal Medicine
DX: J18.8 Other pneumonia, unspecified organism (principal); R06.03 Acute respiratory distress; E78.2 Mixed hyperlipidemia; I10 Essential (primary) hypertension; E03.8 Other specified hypothyroidism; F32.89 Other specified depressive episodes; I50.9 Heart failure, unspecified; M17.12 Unilateral primary osteoarthritis, left knee; G20 Parkinson's disease; E87.1 Hypo-osmolality and hyponatremia; R60.0 Localized edema; R53.1 Weakness; R73.09 Other abnormal glucose; R26.89 Other abnormalities of gait and mobility
CPT/HCPCS: 36415; 71010; 80053; 81001; 85025; 87040; 94640; 94760; 97535; A4222; J1956; J2543; J2920; J7620; J7626

== ENCOUNTER 2017-01-11 18:07 | Inpatient (IN) | payer OTHER, MEDICAID ==
[2017-01-11] MEDS ORDERED: DUONEB 0.5 MG/3 MG ONE (18:23)
[2017-01-11] MEDS ORDERED: DUONEB 0.5 MG/3 MG NEB ONE (18:25)
--- NOTE | 2017-01-11 18:41 | DR.SOBA ---
HPI - Time Seen Time seen: 18:40 - Primary Care Physician Primary Care Physician: LIT - HPI Comment HPI Comment: INCREASING SOB, CHEST PAIN AND CONFUSION. GETTING WORSE. SEE CHIEF COMPLAINT. - Complaints Chief Complaint Doctors Comments: SOB. Chief Complaint:: OSWALDO CINDI JOHNSON, CALLS FROM [place] STATING PT. HAS BEEN EXPERIENCING SHORTNESS OF BREATH WITH ACCESSORY MUSCLE USE WELL GENERALIZED WEAKNESS. SHE STATES PT. HAS COARSE BILATERAL LUNG SOUNDS AND O2 SAT IS 88-91% ON N/C @ 2LPM AND PT. IS COOL AND CLAMMY. SHE SAYS THESE SYMPTOMS OCCUR PERIODICALLY AND THAT PT. WAS A DIRECT ADMIT ON 12/26/16 AND STAYED IN THE HOSPITAL FOR 2 DAYS DUE TO HER CHEST X-RAY. UPON ARRIVAL TO THE ER, PT. IS SHORT OF BREATH WHILE LYING IN BED & HAS A COUGH BUT DENIES ANY OTHER SYMPTOMS. - Reviewed Nurses Notes Reviewed: Yes - Source History Provided: Patient, Family Member, Intermediate - Mode of Arrival Mode of Arrival: Stretcher - Timing Onset of Chief Complaint: 01/11/17 - Duration Duration: Hours - Context Onset:: At Rest PE Risk Factors:: Immobilization History of:: COPD, CHF Currently on:: Inhaled Bronchodilators Prehospital Care:: O2, Inhaled B2 - Modifying Factors Worsens:: Lying Flat Improves:: Sitting Up - Associated Signs and Symptoms Associated Signs and Symptoms: Fever, Wheeze, Cough, Chest Pain, Leg Swelling - If Chest Pain Quality: Pleuritic, Other (TIGHTNESS) Location: Left Lower Chest - If Cough Cough: Productive, Yellow PMH - PMH Past Medical History: Yes Past Medical History: Arthritis, COPD, Depression, Dyslipidemia, Hypertension, Hypothyroidism Past Medical History Comment: HARD OF HEARING Past Surgical History: Yes Surgical History: Hysterectomy, Mastectomy Past Surgical History Comment: LEFT MASTECTOMY - Family History History of Family Medical Conditions: Yes Family Medical History: Hypertension - Social History Does patient currently use any type of tobacco product: No Have you used tobacco products in the last 12 months: No Type of Tobacco Use: None Does any household member use tobacco: No Alcohol Use: None, Rarely Do you use any recreational Drugs:: No Lives Where: Intermediate - infectious screening In the last 2 months have you had wt loss of >10#?: NO Have you had fever, night sweats or hemotysis?: No Have you traveled outside the country in the last 6 months?: No Isolation: Standard ROS - Review of Systems Constitutional: Fever, Weakness, Fatigue. negative: Chills Eyes: negative: Eye Pain ENTM: Nose Discharge, Nose Congestion, Throat Pain. negative: Ear Pain Respiratoy: Productive Cough, Short of Breath, Wheezing. negative: Hemoptysis Cardiovascular: Chest Pain, Edema Gastrointestinal/Abdominal: Nausea. negative: Constipation, Diarrhea, Vomiting Genitourinary: negative: Hematuria, Bleeding Neurological: Headache, Weakness, Dizziness Musculoskeletal: Back Pain, Joint Pain, Joint Swelling, Muscle Pain Integumentary: Change in Color. negative: Juandice Hematologic/Lymphatic: Anemia, Easy Bleeding, Easy Bruising Endocrine: No Symptoms Reported Psychiatric: Anxiety All Other Systems: Reviewed and Negative PE - Vital Signs Vitals: Temperature 98 F Pulse Rate [Right Radial] 87 Pulse Rate 88 Respiratory Rate 20 Blood Pressure [Right Calf] 123/72 Blood Pressure [Left Calf] 131/59 Blood Pressure [Right Thigh] 109/58 Blood Pressure [Right Arm] 162/68 Blood Pressure 162/68 O2 Sat by Pulse Oximetry 94 - General Limitations: Altered Mental Status General Appearance: Alert - Head Head Exam: Normal Inspection - Eyes Eye exam: PERRL, EOMI. negative: Scleral Icterus, Conjunctival Injection - ENT ENT Exam: Normal External Ear Exam - Neck Neck Exam: Trachea Midline - Chest Chest Inspection: Symmetric Chest Wall Rise - Respiratory Respiratory Exam: Respiratory Distress Respiratory Exam: Bilateral Wheezing, Bilateral Rhonchi, Upper Wheezing, Upper Rhonchi, Lower Wheezing, Lower Rhonchi - Cardiovascular Cardiovascular Exam: Regular Rate, Normal Rhythm, Normal Heart Sounds - Abdominal Exam Abdominal Exam: Normal Bowel Sounds, Soft, Tenderness Abdominal Tenderness: Diffuse, Mild - Extremities Extremities Exam: Edema - Back Back Exam: Paraspinal Tenderness (LOWER BACK) - Neurologic Neurological Exam: Alert. negative: Oriented X3 - Psychiatric Psychiatric Exam: Anxious - Skin Skin Exam: Erythema MDM - Additional Information Obtained Additional Information Obtained From: Family - Differential Diagnosis Differential Diagnosis: CHF, COPD, Dysrhythmia, Hyponatremia, Mycardial Infarction, Pneumonia, Pneumothorax, Respiratory Failure Course - Treatment Treatment: SEE ORDERS - Consultation Consultation Comments: DISCUSS PATIENT WITH DR. AUGUST. HE WILL ADMIT PATIENT. - Education/Counseling Education/Counseling: Patient, Family, Education Educated On: Treatment, Diagnosis ROR - Labs Reviewed Laboratory Results Reviewed?: Yes Result Diagrams: 01/12/17 06:25 01/12/17 06:25 Laboratory: WBC 11.8 X10^3/uL (3.6-10.0) H 01/12/17 06:25 RBC 4.16 X10^6/uL (3.5-5.4) 01/12/17 06:25 Hgb 12.4 g/dL (12.0-16.0) 01/12/17 06:25 Hct 36.1 % (36.0-47.0) 01/12/17 06:25 MCV 86.8 fL (80.0-100.0) 01/12/17 06:25 MCH 29.9 pg (27.0-34.0) 01/12/17 06:25 MCHC 34.5 g/dL (33.0-35.0) 01/12/17 06:25 RDW 16.6 % (11.6-16.5) H 01/12/17 06:25 Plt Count 263 X10^3/uL (150.0-450.0) 01/12/17 06:25 Plt Count Comment Adequate (ADEQUATE) 01/12/17 06:25 MPV 7.3 fL (7.4-11.0) L 01/12/17 06:25 Neut % 92.8 % (42.0-75.0) H 01/12/17 06:25 Lymph % 4.4 % (21.0-51.0) L 01/12/17 06:25 [place] % 2.3 % (0.0-13.0) 01/12/17 06:25 Eos % 0.1 % (0.9-2.9) L 01/12/17 06:25 Baso % 0.4 % (0.2-1.0) 01/12/17 06:25 Neut # 11.0 x10^3/uL (2.2-4.8) H 01/12/17 06:25 Lymph # 0.5 X10^3/uL (1.3-2.9) L 01/12/17 06:25 [place] # 0.3 x10^3/uL (0.3-0.8) 01/12/17 06:25 Eos # 0.0 x10^3/uL (0.0-0.2) 01/12/17 06:25 Baso # 0.1 X10^3/uL (0.0-0.1) 01/12/17 06:25 Absolute Nucleated RBC 0.0 /100WBC 01/12/17 06:25 Total Counted 100 01/12/17 06:25 Neutrophils % (Manual) 97 % (39-76) H 01/12/17 06:25 Lymphocytes % (Manual) 3 % (13-43) L 01/12/17 06:25 Plt Morphology Comment Normal (NORMAL) 01/12/17 06:25 RBC Morphology Normal (NORMAL) 01/12/17 06:25 INR Target Range - 01/11/17 18:50 INR 1.31 (0.8-1.3) H 01/11/17 18:50 PTT 31.5 SECONDS (22.9-36.5) 01/11/17 18:50 PTT Comment - 01/11/17 18:50 Sodium 127 mmol/L (136-145) L 01/12/17 06:25 Corrected Sodium 129 mmol/L (136-145) L 01/12/17 06:25 Potassium 4.6 mmol/L (3.5-5.1) 01/12/17 06:25 Chloride 91 mmol/L (98-107) L 01/12/17 06:25 Carbon Dioxide 28.5 mmol/L (21-32) 01/12/17 06:25 BUN 7 mg/dL (7-18) 01/12/17 06:25 Creatinine 0.78 mg/dL (0.55-1.02) 01/12/17 06:25 Est GFR (MDRD) Af Amer > 60 (>60) 01/12/17 06:25 Est GFR (MDRD) Non-Af > 60 (>60) 01/12/17 06:25 Glucose 178 mg/dL (65-99) H 01/12/17 06:25 POC Glucose (mg/dL) 198 mg/dL (65-99) H 01/12/17 01:17 Calcium 9.5 mg/dL (8.5-10.1) 01/12/17 06:25 Corrected Calcium 10.4 mg/dL (8.5-10.1) H 01/12/17 06:25 Total Bilirubin 0.50 mg/dL (0.2-1.0) 01/12/17 06:25 AST 19 Units/L (15-37) 01/12/17 06:25 ALT 24 Units/L (12-78) 01/12/17 06:25 Alkaline Phosphatase 74 Units/L (46-116) 01/12/17 06:25 Creatine Kinase 220 Units/L (26-192) H 01/12/17 06:25 CK-MB (CK-2) 2.0 ng/mL (0-4.0) 01/12/17 06:25 CK/CKMB % Calc 0.9 % (<4) 01/12/17 06:25 Troponin I < 0.02 ng/mL (0-1.5) 01/12/17 06:25 B-Natriuretic Peptide 164 pg/mL (0-79) H 01/11/17 18:50 Total Protein 7.2 g/dL (6.4-8.2) 01/12/17 06:25 Albumin 2.9 g/dL (3.4-5.0) L 01/12/17 06:25 Globulin 4.3 g/dL (2.5-4.5) 01/12/17 06:25 Albumin/Globulin Ratio 0.7 Ratio (1.1-2.1) L 01/12/17 06:25 Specimen Type Clean catch urine 01/12/17 10:57 Urine Color Yellow (YELLOW) 01/12/17 10:57 Urine Appearance Hazy (CLEAR) 01/12/17 10:57 Urine pH 7.0 (5.0 - 8.0) 01/12/17 10:57 Ur Specific [place] 1.010 (1.000-1.030) 01/12/17 10:57 Urine Protein 1+ (NEGATIVE) 01/12/17 10:57 Urine Glucose (UA) Negative (NEGATIVE) 01/12/17 10:57 Urine Ketones 1+ (NEGATIVE) 01/12/17 10:57 Urine Occult Blood 1+ (NEGATIVE) 01/12/17 10:57 Urine Nitrite Negative (NEGATIVE) 01/12/17 10:57 Urine Bilirubin Negative (NEGATIVE) 01/12/17 10:57 Urine Urobilinogen Normal (NORMAL) 01/12/17 10:57 Ur Leukocyte Esterase 1+ (NEGATIVE) 01/12/17 10:57 Urine RBC 0-2 /HPF (NEGATIVE) 01/12/17 10:57 Urine WBC 0-2 /HPF (NEGATIVE) 01/12/17 10:57 Ur Squamous Epith Cells Negative /HPF (NEGATIVE) 01/12/17 10:57 Amorphous Sediment 1+ /HPF (NEGATIVE) 01/11/17 04:43 Urine Bacteria Trace /HPF (NEGATIVE) 01/12/17 10:57 Urine Mucus Few /HPF (NEGATIVE) 01/12/17 10:57 Ur Culture Indicated? No/not indicated 01/12/17 10:57 - XRAY XRAY Interpreted by: Radiologist XRAY Findings: REPORT DISCUSS WITH PATIENT. - EKG Rhythm: Afib (EKG NOTED.) - Diagnosis Discharge Problem: COPD exacerbation, Bronchitis, Hyponatremia - Discharge Plan Disposition: ADMITTED INPATIENT Condition: Stable - Follow ups/Referrals - Instructions
--- NOTE | 2017-01-11 19:09 | RAD ---
Examination: Portable AP chest History: Chest pain, cough and SOB Comparison reference: 12/28/2016 Findings: Continued normal heart size with grossly clear lungs. Prominent central vascularity may be related to nonstandard technical factors. There is no evidence for consolidation, pulmonary edema or pneumothorax. Stable position of right subclavian injection port terminating in the SVC. Bilateral sh oulder arthropathy incidentally noted. Impression: No change; no acute disease. Reported By:
[2017-01-11 19:20] LABS: BASOPHILS # (AUTO) 0.1 X10^3/uL (0.0-0.1); BASOPHILS % (AUTO) 0.7 % (0.2-1.0); EOSINOPHILS % (AUTO) 7.5 % (0.9-2.9); HEMATOCRIT 36.5 % (36.0-47.0); HEMOGLOBIN 12.7 g/dL (12.0-16.0); LYMPHOCYTES # (AUTO) 0.8 X10^3/uL (1.3-2.9); LYMPHOCYTES % (AUTO) 5.9 % (21.0-51.0); MEAN CORPUSCULAR HEMOGLOBIN 30.1 pg (27.0-34.0); MEAN CORPUSCULAR HGB CONC 34.7 g/dL (33.0-35.0); MEAN CORPUSCULAR VOLUME 86.7 fL (80.0-100.0); MEAN PLATELET VOLUME 7.9 fL (7.4-11.0); MONOCYTES # (AUTO) 1.2 x10^3/uL (0.3-0.8); NEUTROPHILS % (AUTO) 76.9 % (42.0-75.0); PLATELET COUNT 267 X10^3/uL (150.0-450.0); RED CELL DISTRIBUTION WIDTH 16.4 % (11.6-16.5)
[2017-01-11 19:42] LABS: B-TYPE NATRIURETIC PEPTIDE 164 pg/mL (0-79)
[2017-01-11 20:10] LABS: ALANINE AMINOTRANSFERASE 19 Units/L (12-78); ALBUMIN 3.2 g/dL (3.4-5.0); ALKALINE PHOSPHATASE 75 Units/L (46-116); BLOOD UREA NITROGEN 6 mg/dL (7-18); TOTAL PROTEIN 7.5 g/dL (6.4-8.2); TROPONIN I < 0.02 ng/mL (0-1.5); eGFR BLACK RACES > 60 (>60); eGFR NON BLACK RACES > 60 (>60)
[2017-01-11 20:31] LABS: ASPARTATE AMINO TRANSFERASE 24 Units/L (15-37); CALCIUM 9.8 mg/dL (8.5-10.1); CHLORIDE 91 mmol/L (98-107); CKMB % 0.8 % (<4); COR CA(FOR HYPOALB) 10.4 mg/dL (8.5-10.1); COR NA(FOR HYPERGLY) 125 mmol/L (136-145); CREATINE KINASE 244 Units/L (26-192); CREATININE 0.74 mg/dL (0.55-1.02)
[2017-01-11] MEDS ORDERED: SOLU-Medrol 125 MG VIAL IVP ONE (20:38)
[2017-01-11 20:40] LABS: SODIUM 125 mmol/L (136-145)
[2017-01-11] MEDS ORDERED: SOLU-Medrol 125 MG VIAL ONE (21:18)
[2017-01-11] MEDS ORDERED: NS 1/2 1000 ML IV 1,000 ML IV ONE (21:26)
[2017-01-11] MEDS: CIPRO IV 200 MG PREMIX* 200 MG/100 ML BAG IV SCH (21:27)
[2017-01-11] MEDS: FORTAZ or TAZICEF INJ 1 GM in NS 50 ML IV + SPIKE MINIBAG* 50 ML IV SCH (21:27)
[2017-01-11] MEDS ORDERED: FORTAZ or TAZICEF INJ ONE (21:27)
[2017-01-11] MEDS ORDERED: NS 50 ML IV 50 ML IV ONE (21:27)
[2017-01-11] MEDS: NS 1/2 1000 ML IV 1,000 ML IV SCH (21:31)
[2017-01-11] MEDS: SOLU-Medrol 40 MG VIAL IVP SCH (22:18)
[2017-01-11] MEDS: DUONEB 0.5 MG/3 MG NEB SCH (22:22)
[2017-01-11] MEDS: ROBITUSSIN DM PO PRN (23:23)
[2017-01-12] MEDS: DUONEB 0.5 MG/3 MG NEB SCH ×6 (01:54→21:20)
[2017-01-12 02:24] LABS: CKMB % 0.9 % (<4); CREATINE KINASE 246 Units/L (26-192); CREATINE KINASE MB 2.1 ng/mL (0-4.0); TROPONIN I < 0.02 ng/mL (0-1.5)
[2017-01-12] MEDS ORDERED: LANTISEPTIC ONE (04:08)
[2017-01-12] MEDS ORDERED: NYSTATIN POWDER ONE (04:09)
[2017-01-12] MEDS ORDERED: LANTISEPTIC TOP PRN (04:39)
[2017-01-12] MEDS: NYSTATIN POWDER TOP SCH ×3 (05:02→21:31)
[2017-01-12] MEDS ORDERED: FORTAZ or TAZICEF INJ ONE (05:18)
[2017-01-12] MEDS ORDERED: NS 50 ML IV 50 ML IV ONE (05:18)
[2017-01-12] MEDS: SOLU-Medrol 40 MG VIAL IVP SCH ×3 (05:22→21:24)
[2017-01-12] MEDS: FORTAZ or TAZICEF INJ 1 GM in NS 50 ML IV + SPIKE MINIBAG* 50 ML IV SCH (05:23)
[2017-01-12 06:02] LABS: BILIRUBIN,URINE NEGATIVE (NEGATIVE); BLOOD/HEMOGLOBIN,URINE 1+ (NEGATIVE); GLUCOSE, URINE NEGATIVE (NEGATIVE); KETONES,URINE NEGATIVE (NEGATIVE); LEUKOCYTE ESTERASE ,URINE 1+ (NEGATIVE); NITRITES,URINE NEGATIVE (NEGATIVE); PROTEIN,URINE 1+ (NEGATIVE); UROBILINOGEN,URINE NORMAL (NORMAL)
[2017-01-12 06:11] LABS: APPEARANCE,URINE HAZY (CLEAR); COLOR,URINE YELLOW (YELLOW)
[2017-01-12 06:12] LABS: AMORPHOUS SEDIMENT,UR 1+ /HPF (NEGATIVE); BACTERIA,URINE TRACE /HPF (NEGATIVE); RBC,URINE 0-2 /HPF (NEGATIVE); SQUAMOUS EPITHELIAL CELL,UR RARE /HPF (NEGATIVE)
[2017-01-12 06:39] LABS: BASOPHILS # (AUTO) 0.1 X10^3/uL (0.0-0.1); BASOPHILS % (AUTO) 0.4 % (0.2-1.0); EOSINOPHILS % (AUTO) 0.1 % (0.9-2.9); HEMATOCRIT 36.1 % (36.0-47.0); HEMOGLOBIN 12.4 g/dL (12.0-16.0); LYMPHOCYTES # (AUTO) 0.5 X10^3/uL (1.3-2.9); LYMPHOCYTES % (AUTO) 4.4 % (21.0-51.0); MEAN CORPUSCULAR HEMOGLOBIN 29.9 pg (27.0-34.0); MEAN CORPUSCULAR HGB CONC 34.5 g/dL (33.0-35.0); MEAN CORPUSCULAR VOLUME 86.8 fL (80.0-100.0); MEAN PLATELET VOLUME 7.3 fL (7.4-11.0); MONOCYTES # (AUTO) 0.3 x10^3/uL (0.3-0.8); MONOCYTES % (AUTO) 2.3 % (0.0-13.0); NEUTROPHILS % (AUTO) 92.8 % (42.0-75.0); PLATELET COUNT 263 X10^3/uL (150.0-450.0); RED BLOOD COUNT 4.16 X10^6/uL (3.5-5.4); RED CELL DISTRIBUTION WIDTH 16.6 % (11.6-16.5); WHITE BLOOD COUNT 11.8 X10^3/uL (3.6-10.0)
[2017-01-12 07:00] LABS: PLATELET MORPHOLOGY COMMENT NORMAL (NORMAL)
[2017-01-12 07:04] LABS: CKMB % 0.9 % (<4); CREATINE KINASE 220 Units/L (26-192); TROPONIN I < 0.02 ng/mL (0-1.5)
[2017-01-12 07:06] LABS: ALANINE AMINOTRANSFERASE 24 Units/L (12-78); ALBUMIN 2.9 g/dL (3.4-5.0); ALKALINE PHOSPHATASE 74 Units/L (46-116); ASPARTATE AMINO TRANSFERASE 19 Units/L (15-37); BLOOD UREA NITROGEN 7 mg/dL (7-18); CALCIUM 9.5 mg/dL (8.5-10.1); CARBON DIOXIDE 28.5 mmol/L (21-32); CHLORIDE 91 mmol/L (98-107); COR CA(FOR HYPOALB) 10.4 mg/dL (8.5-10.1); COR NA(FOR HYPERGLY) 129 mmol/L (136-145); CREATININE 0.78 mg/dL (0.55-1.02); SODIUM 127 mmol/L (136-145); TOTAL PROTEIN 7.2 g/dL (6.4-8.2); eGFR BLACK RACES > 60 (>60); eGFR NON BLACK RACES > 60 (>60)
[2017-01-12] MEDS: CIPRO IV 200 MG PREMIX* 200 MG/100 ML BAG IV SCH ×2 (08:31→21:23)
[2017-01-12] MEDS: ROBITUSSIN DM PO PRN ×2 (08:31→23:03)
[2017-01-12] MEDS: NS 1/2 1000 ML IV 1,000 ML IV SCH (11:04)
[2017-01-12 11:21] LABS: BILIRUBIN,URINE NEGATIVE (NEGATIVE); BLOOD/HEMOGLOBIN,URINE 1+ (NEGATIVE); GLUCOSE, URINE NEGATIVE (NEGATIVE); KETONES,URINE 1+ (NEGATIVE); LEUKOCYTE ESTERASE ,URINE 1+ (NEGATIVE); NITRITES,URINE NEGATIVE (NEGATIVE); PROTEIN,URINE 1+ (NEGATIVE); UROBILINOGEN,URINE NORMAL (NORMAL)
[2017-01-12 11:29] LABS: APPEARANCE,URINE HAZY (CLEAR); BACTERIA,URINE TRACE /HPF (NEGATIVE); COLOR,URINE YELLOW (YELLOW); RBC,URINE 0-2 /HPF (NEGATIVE); SQUAMOUS EPITHELIAL CELL,UR NEGATIVE /HPF (NEGATIVE)
[2017-01-12 11:30] LABS: MUCUS,URINE FEW /HPF (NEGATIVE)
[2017-01-12 14:08] VITALS: BMI 36.2
[2017-01-12] MEDS: FORTAZ or TAZICEF INJ 1 GM in NS 50 ML IV 50 ML IV SCH ×2 (14:12→21:23)
[2017-01-12] MEDS ORDERED: NS 1/2 1000 ML IV 1,000 ML IV ONE (15:07)
[2017-01-12] MEDS ORDERED: DIFLUCAN 200 MG IV PREMIX* 200 MG/100 ML BAG IV ONE (18:00)
[2017-01-13] MEDS: DUONEB 0.5 MG/3 MG NEB SCH ×6 (00:46→16:45)
[2017-01-13] MEDS: FORTAZ or TAZICEF INJ 1 GM in NS 50 ML IV 50 ML IV SCH ×3 (05:40→21:45)
[2017-01-13] MEDS: SOLU-Medrol 40 MG VIAL IVP SCH ×3 (05:41→21:45)
[2017-01-13] MEDS: ROBITUSSIN DM PO PRN ×3 (05:41→21:45)
[2017-01-13 06:21] LABS: BASOPHILS % (AUTO) 0.2 % (0.2-1.0); HEMATOCRIT 34.7 % (36.0-47.0); LYMPHOCYTES # (AUTO) 0.8 X10^3/uL (1.3-2.9); LYMPHOCYTES % (AUTO) 6.8 % (21.0-51.0); MEAN CORPUSCULAR HEMOGLOBIN 29.9 pg (27.0-34.0); MEAN CORPUSCULAR HGB CONC 34.5 g/dL (33.0-35.0); MEAN CORPUSCULAR VOLUME 86.5 fL (80.0-100.0); MEAN PLATELET VOLUME 7.8 fL (7.4-11.0); MONOCYTES # (AUTO) 0.5 x10^3/uL (0.3-0.8); NEUTROPHILS # (AUTO) 10.9 x10^3/uL (2.2-4.8); PLATELET COUNT 272 X10^3/uL (150.0-450.0); RED BLOOD COUNT 4.01 X10^6/uL (3.5-5.4); RED CELL DISTRIBUTION WIDTH 16.4 % (11.6-16.5); WHITE BLOOD COUNT 12.2 X10^3/uL (3.6-10.0)
[2017-01-13] MEDS: NS 1/2 1000 ML IV 1,000 ML IV SCH ×3 (06:34→14:41)
[2017-01-13 06:53] LABS: ALANINE AMINOTRANSFERASE 24 Units/L (12-78); ALBUMIN 3.1 g/dL (3.4-5.0); ALKALINE PHOSPHATASE 67 Units/L (46-116); ASPARTATE AMINO TRANSFERASE 20 Units/L (15-37); BLOOD UREA NITROGEN 10 mg/dL (7-18); CALCIUM 9.5 mg/dL (8.5-10.1); CARBON DIOXIDE 27.7 mmol/L (21-32); CHLORIDE 93 mmol/L (98-107); COR CA(FOR HYPOALB) 10.2 mg/dL (8.5-10.1); COR NA(FOR HYPERGLY) 130 mmol/L (136-145); CREATININE 0.85 mg/dL (0.55-1.02); SODIUM 129 mmol/L (136-145); TOTAL PROTEIN 7.3 g/dL (6.4-8.2); eGFR BLACK RACES > 60 (>60); eGFR NON BLACK RACES > 60 (>60)
[2017-01-13] MEDS: NYSTATIN POWDER TOP SCH ×2 (09:27→21:46)
[2017-01-13] MEDS: DIFLUCAN PO SCH (09:27)
[2017-01-13] MEDS: CIPRO IV 200 MG PREMIX* 200 MG/100 ML BAG IV SCH ×2 (09:28→21:40)
[2017-01-13] MEDS ORDERED: NS 1/2 1000 ML IV 1,000 ML IV ONE (09:32)
[2017-01-13] MEDS ORDERED: TYLENOL 325 MG TAB PO PRN (16:03)
[2017-01-13] MEDS ORDERED: XANAX PO PRN (17:37)
[2017-01-13] MEDS ORDERED: TRAMADOL HCL 50 MG PO PRN (17:37)
[2017-01-13] MEDS ORDERED: ZOFRAN TAB 4 MG PO PRN ×2 (17:37→18:11)
[2017-01-13] MEDS ORDERED: LOSARTAN POTASSIUM 100 MG PO SCH (17:45)
[2017-01-13] MEDS ORDERED: COZAAR ONE (17:58)
[2017-01-13] MEDS ORDERED: ULTRAM PO PRN (18:10)
[2017-01-13] MEDS ORDERED: DUONEB 0.5 MG/3 MG NEB SCH ×2 (21:00)
[2017-01-13] MEDS ORDERED: PATIENT'S HOME MEDICATION (Citalopram Hydrobromide [Celexa] 1 TAB) PO SCH (21:00)
[2017-01-13] MEDS ORDERED: POTASSIUM CHLORIDE 10 MEQ PO SCH (21:00)
[2017-01-13] MEDS: MICRO K EXTEN CAP 10 MEQ PO SCH (21:42)
[2017-01-13] MEDS: LYRICA CAP 50 MG PO SCH (21:42)
[2017-01-13] MEDS: ELIQUIS PO SCH (21:43)
[2017-01-13] MEDS: WELCHOL PO SCH (21:44)
[2017-01-13] MEDS: CELEXA PO SCH (21:44)
[2017-01-13] MEDS: SINEMET (PLAIN) 25/100 MG PO SCH (21:44)
[2017-01-13] MEDS ORDERED: PATIENT'S HOME MEDICATION (Pregabalin [Lyrica] 50 MG) PO SCH (22:00)
[2017-01-14] MEDS ORDERED: DUONEB 0.5 MG/3 MG NEB SCH
[2017-01-14] MEDS: DUONEB 0.5 MG/3 MG NEB SCH ×4 (00:27→17:30)
[2017-01-14] MEDS: NS 1/2 1000 ML IV 1,000 ML IV SCH (05:33)
[2017-01-14] MEDS ORDERED: NS 1/2 1000 ML IV 1,000 ML IV ONE (06:05)
[2017-01-14] MEDS: FORTAZ or TAZICEF INJ 1 GM in NS 50 ML IV 50 ML IV SCH ×3 (06:07→20:59)
[2017-01-14] MEDS: LYRICA CAP 50 MG PO SCH ×3 (06:08→21:00)
[2017-01-14] MEDS: SINEMET (PLAIN) 25/100 MG PO SCH ×3 (06:08→21:02)
[2017-01-14] MEDS: SOLU-Medrol 40 MG VIAL IVP SCH ×3 (06:08→20:59)
[2017-01-14] MEDS: SYNTHROID 150 mcg TAB PO SCH (06:08)
[2017-01-14 06:21] LABS: BASOPHILS # (AUTO) 0.1 X10^3/uL (0.0-0.1); BASOPHILS % (AUTO) 0.6 % (0.2-1.0); HEMATOCRIT 33.4 % (36.0-47.0); HEMOGLOBIN 11.7 g/dL (12.0-16.0); LYMPHOCYTES # (AUTO) 0.9 X10^3/uL (1.3-2.9); MEAN CORPUSCULAR HEMOGLOBIN 30.3 pg (27.0-34.0); MEAN CORPUSCULAR VOLUME 86.7 fL (80.0-100.0); MEAN PLATELET VOLUME 7.8 fL (7.4-11.0); MONOCYTES # (AUTO) 0.4 x10^3/uL (0.3-0.8); MONOCYTES % (AUTO) 3.8 % (0.0-13.0); NEUTROPHILS # (AUTO) 9.5 x10^3/uL (2.2-4.8); NEUTROPHILS % (AUTO) 87.6 % (42.0-75.0); PLATELET COUNT 251 X10^3/uL (150.0-450.0); RED BLOOD COUNT 3.85 X10^6/uL (3.5-5.4); RED CELL DISTRIBUTION WIDTH 16.5 % (11.6-16.5); WHITE BLOOD COUNT 10.8 X10^3/uL (3.6-10.0)
[2017-01-14 06:27] LABS: ALANINE AMINOTRANSFERASE 8 Units/L (12-78); ALBUMIN 2.9 g/dL (3.4-5.0); ALKALINE PHOSPHATASE 54 Units/L (46-116); ASPARTATE AMINO TRANSFERASE 22 Units/L (15-37); BLOOD UREA NITROGEN 13 mg/dL (7-18); CALCIUM 9.4 mg/dL (8.5-10.1); CARBON DIOXIDE 25.7 mmol/L (21-32); CHLORIDE 94 mmol/L (98-107); COR CA(FOR HYPOALB) 10.3 mg/dL (8.5-10.1); COR NA(FOR HYPERGLY) 127 mmol/L (136-145); CREATININE 0.91 mg/dL (0.55-1.02); SODIUM 126 mmol/L (136-145); TOTAL PROTEIN 6.6 g/dL (6.4-8.2); eGFR BLACK RACES > 60 (>60); eGFR NON BLACK RACES > 60 (>60)
[2017-01-14] MEDS ORDERED: PATIENT'S HOME MEDICATION (Levocetirizine Dihydrochloride [Xyzal] 1 TAB) PO SCH (09:00)
[2017-01-14] MEDS ORDERED: LEVOTHYROXINE SODIUM 150 MCG PO SCH (09:00)
[2017-01-14] MEDS ORDERED: ZINC 100 MG PO SCH (09:00)
[2017-01-14] MEDS ORDERED: PATIENT'S HOME MEDICATION (Multivit-Min/Fa/Lycopen/Lutein [Centrum Silver Tablet] 1 TAB) PO SCH (09:00)
[2017-01-14] MEDS: DIFLUCAN PO SCH (12:00)
[2017-01-14] MEDS: NYSTATIN POWDER TOP SCH ×2 (12:00→21:04)
[2017-01-14] MEDS: ZyrTEC TAB 10 MG PO SCH (12:00)
[2017-01-14] MEDS: VITAMIN C PO SCH (12:00)
[2017-01-14] MEDS: LASIX PO SCH (12:00)
[2017-01-14] MEDS: TAB-A-VITE PO SCH (12:00)
[2017-01-14] MEDS: MILK OF MAGNESIA PO SCH (12:00)
[2017-01-14] MEDS: COZAAR PO SCH (12:00)
[2017-01-14] MEDS: ELIQUIS PO SCH ×2 (12:00→21:00)
[2017-01-14] MEDS: CIPRO IV 200 MG PREMIX* 200 MG/100 ML BAG IV SCH ×2 (12:00→20:59)
[2017-01-14] MEDS: MICRO K EXTEN CAP 10 MEQ PO SCH ×2 (12:00→21:00)
[2017-01-14] MEDS: WELCHOL PO SCH ×2 (12:00→21:02)
[2017-01-14] MEDS: ZINC SULFATE PO SCH (14:08)
[2017-01-14] MEDS: CELEXA PO SCH (21:00)
[2017-01-14] MEDS: ROBITUSSIN DM PO PRN (22:23)
[2017-01-15] MEDS: DUONEB 0.5 MG/3 MG NEB SCH ×5 (00:45→18:04)
[2017-01-15 05:21] LABS: ALANINE AMINOTRANSFERASE 15 Units/L (12-78); ALBUMIN 2.8 g/dL (3.4-5.0); ALKALINE PHOSPHATASE 52 Units/L (46-116); ASPARTATE AMINO TRANSFERASE 26 Units/L (15-37); BLOOD UREA NITROGEN 12 mg/dL (7-18); CALCIUM 8.8 mg/dL (8.5-10.1); CARBON DIOXIDE 28.1 mmol/L (21-32); CHLORIDE 94 mmol/L (98-107); COR CA(FOR HYPOALB) 9.8 mg/dL (8.5-10.1); COR NA(FOR HYPERGLY) 130 mmol/L (136-145); CREATININE 0.84 mg/dL (0.55-1.02); SODIUM 129 mmol/L (136-145); TOTAL PROTEIN 6.3 g/dL (6.4-8.2); eGFR BLACK RACES > 60 (>60); eGFR NON BLACK RACES > 60 (>60)
[2017-01-15 05:24] LABS: BASOPHILS % (AUTO) 0.1 % (0.2-1.0); EOSINOPHILS % (AUTO) 0.1 % (0.9-2.9); HEMATOCRIT 33.1 % (36.0-47.0); HEMOGLOBIN 11.3 g/dL (12.0-16.0); LYMPHOCYTES # (AUTO) 0.6 X10^3/uL (1.3-2.9); LYMPHOCYTES % (AUTO) 7.7 % (21.0-51.0); MEAN CORPUSCULAR HEMOGLOBIN 30.1 pg (27.0-34.0); MEAN CORPUSCULAR HGB CONC 34.2 g/dL (33.0-35.0); MEAN CORPUSCULAR VOLUME 88.2 fL (80.0-100.0); MEAN PLATELET VOLUME 7.9 fL (7.4-11.0); MONOCYTES # (AUTO) 0.4 x10^3/uL (0.3-0.8); MONOCYTES % (AUTO) 4.8 % (0.0-13.0); NEUTROPHILS # (AUTO) 7.3 x10^3/uL (2.2-4.8); NEUTROPHILS % (AUTO) 87.3 % (42.0-75.0); PLATELET COUNT 229 X10^3/uL (150.0-450.0); RED BLOOD COUNT 3.76 X10^6/uL (3.5-5.4); RED CELL DISTRIBUTION WIDTH 16.6 % (11.6-16.5); WHITE BLOOD COUNT 8.4 X10^3/uL (3.6-10.0)
[2017-01-15] MEDS: LYRICA CAP 50 MG PO SCH ×3 (06:07→21:00)
[2017-01-15] MEDS: SYNTHROID 150 mcg TAB PO SCH (06:07)
[2017-01-15] MEDS: SINEMET (PLAIN) 25/100 MG PO SCH ×3 (06:08→21:00)
[2017-01-15] MEDS: FORTAZ or TAZICEF INJ 1 GM in NS 50 ML IV 50 ML IV SCH ×3 (06:08→22:08)
[2017-01-15] MEDS ORDERED: NS 1/2 1000 ML IV 1,000 ML IV ONE (06:11)
[2017-01-15] MEDS: NS 1/2 1000 ML IV 1,000 ML IV SCH (06:12)
[2017-01-15] MEDS: COZAAR PO SCH (09:36)
[2017-01-15] MEDS: MILK OF MAGNESIA PO SCH (09:36)
[2017-01-15] MEDS: WELCHOL PO SCH ×2 (09:36→20:44)
[2017-01-15] MEDS: LASIX PO SCH (09:37)
[2017-01-15] MEDS: TAB-A-VITE PO SCH (09:37)
[2017-01-15] MEDS: ZINC SULFATE PO SCH (09:37)
[2017-01-15] MEDS: VITAMIN C PO SCH (09:37)
[2017-01-15] MEDS: CIPRO IV 200 MG PREMIX* 200 MG/100 ML BAG IV SCH ×2 (09:37→20:44)
[2017-01-15] MEDS: ZyrTEC TAB 10 MG PO SCH (09:37)
[2017-01-15] MEDS: DIFLUCAN PO SCH (09:37)
[2017-01-15] MEDS: ELIQUIS PO SCH ×2 (09:37→20:44)
[2017-01-15] MEDS: NYSTATIN POWDER TOP SCH ×2 (09:37→20:46)
[2017-01-15] MEDS: MICRO K EXTEN CAP 10 MEQ PO SCH ×2 (09:37→20:44)
--- NOTE | 2017-01-15 10:34 | RAD ---
HISTORY: COPD. Depression. Study: AP upright chest Comparison: 01/11/2017 Findings: There is developing obscuration of the descending thoracic aorta and the left hemidiaphragm felt to b e due to developing atelectatic change/infiltrate. Minimal interstitial scarring is noted. The heart size is normal. Surgical clips are present in the left axilla. A chemotherapy port is present on the right with its tip at the cavoatrial junction. Severe degenerative changes present within both should ers. IMPRESSION: 1. Findings felt to be secondary to developing infiltrate/atelectasis in the left lung base. 2. Otherwise, no significant change is noted. Reported By:
[2017-01-15] MEDS: CELEXA PO SCH (20:45)
[2017-01-16] MEDS: DUONEB 0.5 MG/3 MG NEB SCH ×3 (00:50→13:31)
[2017-01-16 05:12] LABS: ALANINE AMINOTRANSFERASE 15 Units/L (12-78); ALBUMIN 2.9 g/dL (3.4-5.0); ALKALINE PHOSPHATASE 51 Units/L (46-116); ASPARTATE AMINO TRANSFERASE 32 Units/L (15-37); BLOOD UREA NITROGEN 9 mg/dL (7-18); CALCIUM 9.1 mg/dL (8.5-10.1); CARBON DIOXIDE 30.8 mmol/L (21-32); CHLORIDE 97 mmol/L (98-107); CREATININE 0.92 mg/dL (0.55-1.02); SODIUM 133 mmol/L (136-145); TOTAL PROTEIN 6.5 g/dL (6.4-8.2); eGFR BLACK RACES > 60 (>60); eGFR NON BLACK RACES > 60 (>60)
[2017-01-16 05:17] LABS: BASOPHILS % (AUTO) 0.2 % (0.2-1.0); EOSINOPHILS % (AUTO) 0.3 % (0.9-2.9); HEMATOCRIT 34.8 % (36.0-47.0); LYMPHOCYTES # (AUTO) 1.8 X10^3/uL (1.3-2.9); LYMPHOCYTES % (AUTO) 18.4 % (21.0-51.0); MEAN CORPUSCULAR HEMOGLOBIN 30.4 pg (27.0-34.0); MEAN CORPUSCULAR HGB CONC 34.5 g/dL (33.0-35.0); MONOCYTES # (AUTO) 1.2 x10^3/uL (0.3-0.8); MONOCYTES % (AUTO) 12.4 % (0.0-13.0); NEUTROPHILS # (AUTO) 6.6 x10^3/uL (2.2-4.8); NEUTROPHILS % (AUTO) 68.7 % (42.0-75.0); PLATELET COUNT 237 X10^3/uL (150.0-450.0); RED BLOOD COUNT 3.95 X10^6/uL (3.5-5.4); RED CELL DISTRIBUTION WIDTH 16.8 % (11.6-16.5); WHITE BLOOD COUNT 9.6 X10^3/uL (3.6-10.0)
[2017-01-16] MEDS ORDERED: NS 1/2 1000 ML IV 1,000 ML IV ONE (05:47)
[2017-01-16] MEDS: FORTAZ or TAZICEF INJ 1 GM in NS 50 ML IV 50 ML IV SCH ×2 (05:57→13:33)
[2017-01-16] MEDS: NS 1/2 1000 ML IV 1,000 ML IV SCH (05:57)
[2017-01-16] MEDS: LYRICA CAP 50 MG PO SCH ×2 (05:57→13:34)
[2017-01-16] MEDS: SINEMET (PLAIN) 25/100 MG PO SCH ×2 (05:57→13:34)
[2017-01-16] MEDS: SYNTHROID 150 mcg TAB PO SCH (06:00)
[2017-01-16] MEDS ORDERED: FLEET ENEMA ADULT PR ONE (08:20)
[2017-01-16] MEDS: ELIQUIS PO SCH (08:35)
[2017-01-16] MEDS: COZAAR PO SCH (08:35)
[2017-01-16] MEDS: MICRO K EXTEN CAP 10 MEQ PO SCH (08:35)
[2017-01-16] MEDS: DIFLUCAN PO SCH (08:35)
[2017-01-16] MEDS: ZyrTEC TAB 10 MG PO SCH (08:35)
[2017-01-16] MEDS: WELCHOL PO SCH (08:36)
[2017-01-16] MEDS: ZINC SULFATE PO SCH (08:36)
[2017-01-16] MEDS: VITAMIN C PO SCH (08:36)
[2017-01-16] MEDS: TAB-A-VITE PO SCH (08:36)
[2017-01-16] MEDS: MILK OF MAGNESIA PO SCH (08:36)
[2017-01-16] MEDS: LASIX PO SCH (08:36)
[2017-01-16] MEDS: CIPRO IV 200 MG PREMIX* 200 MG/100 ML BAG IV SCH (08:37)
[2017-01-16] MEDS: NYSTATIN POWDER TOP SCH (10:18)
[2017-01-16] MEDS ORDERED: DULCOLAX SUPPOSITORY 10 MG RECTAL ONE (10:30)
[2017-01-16 12:27] VITALS: BP 155/87
== END 2017-01-16 14:55 | DRG 191 ==
LOC: ER 18:07 → MED/SURG 20:23 → OBSVTOIN 20:23
PROVIDERS: ADMIT Internal Medicine; ATTEND Internal Medicine
DX: J44.1 Chronic obstructive pulmonary disease with (acute) exacerbation (principal); E87.1 Hypo-osmolality and hyponatremia; B37.89 Other sites of candidiasis; J20.8 Acute bronchitis due to other specified organisms; R06.03 Acute respiratory distress; R06.02 Shortness of breath; R07.89 Other chest pain; F32.89 Other specified depressive episodes; E78.2 Mixed hyperlipidemia; I10 Essential (primary) hypertension; E03.8 Other specified hypothyroidism; I48.91 Unspecified atrial fibrillation; R94.31 Abnormal electrocardiogram [ECG] [EKG]; R60.0 Localized edema; M62.81 Muscle weakness (generalized); H91.8X3 Other specified hearing loss, bilateral; R26.89 Other abnormalities of gait and mobility
CPT/HCPCS: 36415; 71010; 80053; 81001; 82550; 82553; 83880; 84484; 85025; 85610; 85730; 93005; 93010; 94640; 94760; 96365; 96374; 96375; 99231; 99284; A4222; J0713; J0744; J1450; J2920; J2930; J7620

== ENCOUNTER → 2017-01-29 | Outpatient (CLI) | payer OTHER, MEDICAID ==
[2017-01-16 12:27] VITALS: BP 155/87
--- NOTE | 2017-01-29 14:02 | CT ---
HISTORY: Respiratory distress, abnormal chest x-ray Study: CT chest without contrast Comparison: CT 09/04/2016, radiograph 01/28/2017 Technique: Multiple axial images of the chest were obtained from the thoracic inlet to the upper abdo men without IV contrast. Dose reduction techniques including Automated Exposure Control (AEC) and ad justment of mA and kV were utilized. Findings: Please note evaluation is limited without IV contrast. Vessel patency not assessed. The heart is uppe r limits normal size. No pericardial effusion is seen. There is a right chest wall port terminating i n the SVC. The aorta appears normal in course and caliber. Minimal biapical ground-glass nodularity i s seen. There is mild interstitial thickening at the lung bases. Chronic granulomatous changes are no karen. There is a 5 mm noncalcified pulmonary nodule at the left lung base (axial image 28). Airways ar e patent. Advanced multilevel spondylosis and degenerative disc disease is noted with thoracolumbar scoliosis. No destructive osseous lesion identified. There is mild soft tissue stranding seen around the left ki dney without iva hydronephrosis. There is an IVC filter noted. IMPRESSION: 1. Minimal ground-glass opacities in the upper lobes may reflect infection/inflammation. 2. 5 mm pulmonary nodule at the left lung base for which six-month follow-up is recommended. 3. Incidental/chronic findings as described. Reported By:
== END ==
LOC: RAD 12:50
PROVIDERS: ATTEND Internal Medicine
DX: R91.8 Other nonspecific abnormal finding of lung field (principal)
CPT/HCPCS: 71250